=== PATIENT | female | born 1950 | race Caucasian/White ===

== ENCOUNTER 2021-09-28 07:14 | Emergency (ER) | payer MEDICARE, SELFPAY ==
[2021-09-28 07:15] VITALS: BP 159/120; PULSE 104; RESP 18; TEMP 35.9; O2SAT 94; BMI 17.1
[2021-09-28 07:17] VITALS: BP 159/120; PULSE 104; RESP 20; TEMP 35.9; O2SAT 95
--- NOTE | 2021-09-28 07:40 | EX.ED.DYSGE1 ---
HPI History of Present Illness Chief Complaint: General Illness Informant: patient Onset/Context/Timing Onset: Yesterday Context: Gradual Onset Timing: Continuous Quality: Fatigue, weakness Location: Generalized Worsened by: Nothing Relieved by: Nothing Narrative Narrative: Patient presents with decreased appetite and increasing fatigue that has been getting worse since yesterday. Patient states she feels weak all over. Patient states nothing makes it better and nothing makes it worse. Patient denies any fevers. Patient admits to chronic subjective chills. Patient denies any chest pain or shortness of breath. Patient does admit to a chronic cough. Patient states she has had some nausea, vomiting, and diarrhea recently. Patient denies any urinary complaints. [facility] Medical History Anemia Coronary atherosclerosis heart cath Heart disease IBS (irritable bowel syndrome) Osteoporosis Porphyrin metabolism disorder Thyroid disease Home Medications aspirin 81 mg tablet,delayed release 81 mg PO DAILY 11/10/16 [History Last Taken Unknown] atorvastatin 20 mg tablet 20 mg PO QHS 11/10/16 [History Last Taken Unknown] calcium carbonate 500 mg-vitamin D3 10 mcg (400 unit) chewable tablet (Calcium 500 + D) 1 ea PO DAILY 11/10/16 [History Last Taken 11/17/16 06:30 1 EACH] cholecalciferol (vitamin D3) 25 mcg (1,000 unit) tablet 1,000 unit PO DAILY 11/10/16 [History Last Taken Unknown] clopidogrel 75 mg tablet 75 mg PO QHS 11/10/16 [History Last Taken Unknown] ipratropium 20 mcg-albuterol 100 mcg/actuation mist for inhalation 1 puff inhalation PRN PRN Wheezing 11/10/16 [History Last Taken Unknown] meloxicam 15 mg tablet 15 mg PO DAILY 11/10/16 [History Last Taken Unknown] omeprazole 20 mg capsule,delayed release 20 mg PO QHS 11/10/16 [History Last Taken 11/17/16 06:30 20 MG] acetaminophen 500 mg tablet (Tylenol Extra Strength) 1,000 mg PO DAILY 12/02/16 [History Last Taken Unknown] alendronate 70 mg tablet 70 mg PO QWEEK 12/29/16 [History Last Taken Unknown] budesonide-formoterol HFA 160 mcg-4.5 mcg/actuation aerosol inhaler (Symbicort) 2 puff inhalation BID 06/22/17 [History Last Taken Unknown] ferrous sulfate 325 mg (65 mg iron) tablet (Iron (ferrous sulfate)) 65 mg PO QWEEK 09/28/17 [History Last Taken Unknown] Allergy/AdvReac Type Severity Reaction Status Date / Time alendronate sodium AdvReac Severe Unknown Verified 09/28/21 07:23 [From Fosamax] nickel AdvReac Intermediate Rash Verified 09/28/21 07:23 rofecoxib [From Vioxx] AdvReac Intermediate Unknown Verified 09/28/21 07:23 iron AdvReac Mild Other Verified 09/28/21 07:23 Family History Mother Diabetes Arthritis Hypertension Father Anemia Sister Breast cancer Surgical History History of section History of lumpectomy History of PTCA Social History Smoking Status: Current every day smoker tobacco type: cigarettes ROS ROS ED Constitutional Constitutional ED: Denies chills or fever(s) Eyes Eyes: Denies blurry vision or change in vision ENT ENT ED: Denies rhinorrhea or sore throat Cardiovascular Cardiovascular: Denies chest pain or palpitations Respiratory/Chest Respiratory/Chest: Reports cough; Denies dyspnea Gastrointestinal Gastrointestinal: Reports diarrhea, nausea and vomiting Genitourinary Genitourinary ED: Denies dysuria or hematuria Musculoskeletal Musculoskeletal: Reports back pain and neck pain Integumentary Denies abscess or rash Neurologic Neurologic: Reports weakness; Denies headache(s) Allergic/Immunologic Allergic/Immunologic ED: Denies mouth swelling or urticaria EXAM Physical Exam Const Vital Signs: 09/28/21 07:15 09/28/21 07:17 09/28/21 08:12 Temperature 96.6 F L 96.6 F L Temperature Source Temporal Temporal Pulse Rate 104 H 104 H 93 Respiratory Rate 18 20 H 18 Blood Pressure 159/120 H 159/120 H Blood Pressure Mean 133 133 Pulse Ox 94 95 Oxygen Delivery Method Room Air Room Air 09/28/21 09:07 Temperature 97.2 F L Temperature Source Temporal Pulse Rate 105 H Respiratory Rate 26 H Blood Pressure 92/72 Blood Pressure Mean 78 Pulse Ox 97 Oxygen Delivery Method Room Air Positive well nourished and well developed General Appearance ED: well developed and NAD HEENT Reports moist mucous membranes Neck supple and no JVD Resp normal respiratory effort Auscultation: rhonchi throughout Cardio regular rhythm and no murmurs Rate: tachycardic GI normal to inspection, nondistended, normoactive bowel sounds and non-tender Palpation: soft Extremity normal to inspection General Extremety ED: Negative for edema or tenderness General Extremity: Negative for edema Neuro oriented x3, CN's II-XII intact bilaterally and no sensory deficits noted Sensorium / Orientation: alert Motor Exam: strength 5/5 throughout Psych mental status grossly normal Skin no rashes or lesions noted MDM MDM MDM Narrative Medical decision making narrative: Patient was given IV fluids. Patient was given a DuoNeb aerosol. Patient was given a dose of Zofran. EKG was obtained. On my interpretation, it showed a normal sinus rhythm with a rate of 89 with occasional PACs. [place] interval, QRS interval, and QTc intervals were all normal. [place] was normal. There are no acute ST or T wave changes. CBC shows a mild leukocytosis of 13.4. Platelets were slightly elevated at 457. Comprehensive metabolic profile was essentially within normal limits. High-sensitivity troponin was normal at 13. COVID-19 rapid antigen was obtained and was negative. Influenza A and influenza B swabs were obtained and were negative. Lactate was normal at 2.0. Portable chest x-ray was obtained. There is 1 view. On my interpretation, there is hyperinflation and chronic changes. There is no acute infiltrate or acute cardiopulmonary process. Radiologist also interpreted the x-ray and agrees. Urinalysis was obtained. There is no evidence of urinary tract infection. Patient is feeling better on reevaluation. Patient wants to go home. Patient was able to ambulate with a walker. Patient states she has 2 walkers at home. Patient was advised to use her walkers. Patient was instructed to continue her omeprazole as prescribed. Patient requested a referral to a new primary care physician because she is unhappy with her current primary care physician. This was given. Patient was instructed to follow-up in 5 to 7 days. Patient was instructed return if worse in any way. Patient and family understood and were agreeable with the plan. All questions were answered. Lab Data Attestation: I reviewed the patient's lab results. Labs: Laboratory Results - last 24 hr 09/28/21 09/28/21 09/28/21 07:20 07:20 07:20 WBC 13.4 H RBC 3.48 L Hgb 12.6 Hct 38.1 MCV 109.5 H MCH 36.2 H MCHC 33.1 RDW Std Deviation 50.0 H RDW Coeff of Rosa 12.5 Plt Count 457 H MPV 9.4 Immature Gran % (Auto) 1.700 H Neut % (Auto) 73.9 H Lymph % (Auto) 16.8 L [place] % (Auto) 6.4 Eos % (Auto) 0.7 Baso % (Auto) 0.5 Absolute Neuts (auto) 9.9 H Absolute Lymphs (auto) 2.25 Nucleated RBC % 0 Sodium 141 Potassium 3.4 L Chloride 103 Carbon Dioxide 26.0 Anion Gap 12 BUN 26 H Creatinine 0.84 Estim Creat Clear Calc 43.81 Est GFR (MDRD) Af Amer 85 Est GFR (MDRD) Non-Af 70 BUN/Creatinine Ratio 30.8 H Glucose 127 H Lactic Acid 2.0 Calcium 7.2 L Total Bilirubin 0.30 AST 33 ALT 23 Alkaline Phosphatase 82 Troponin I High Sens 13 Total Protein 7.7 Albumin 2.7 L Globulin 5.0 H Albumin/Globulin Ratio 0.5 L Urine Color Urine Clarity Urine pH Ur Specific [place] Urine Protein Urine Glucose (UA) Urine Ketones Urine Occult Blood Urine Nitrite Urine Bilirubin Urine Urobilinogen Ur Leukocyte Esterase Urine RBC Urine WBC Ur Squamous Epith Cells Urine Bacteria Urine Mucus 09/28/21 09:05 WBC RBC Hgb Hct MCV MCH MCHC RDW Std Deviation RDW Coeff of Rosa Plt Count MPV Immature Gran % (Auto) Neut % (Auto) Lymph % (Auto) [place] % (Auto) Eos % (Auto) Baso % (Auto) Absolute Neuts (auto) Absolute Lymphs (auto) Nucleated RBC % Sodium Potassium Chloride Carbon Dioxide Anion Gap BUN Creatinine Estim Creat Clear Calc Est GFR (MDRD) Af Amer Est GFR (MDRD) Non-Af BUN/Creatinine Ratio Glucose Lactic Acid Calcium Total Bilirubin AST ALT Alkaline Phosphatase Troponin I High Sens Total Protein Albumin Globulin Albumin/Globulin Ratio Urine Color Yellow Urine Clarity Sl. Cloudy Urine pH 5.0 Ur Specific [place] 1.020 Urine Protein 15 H Urine Glucose (UA) Normal Urine Ketones 50 H Urine Occult Blood Negative Urine Nitrite Negative Urine Bilirubin Negative Urine Urobilinogen Normal Ur Leukocyte Esterase Negative Urine RBC 0 SEEN Urine WBC 0 SEEN Ur Squamous Epith Cells 0-5 SEEN Urine Bacteria 0 SEEN Urine Mucus 0 SEEN Radiography Chest X-Ray - ED: 1 View, Read by ED Physician, Read by Radiologist, No Acute Disease, Chronic Changes and No Infiltrates Diagnostic Testing: Clinical Impression(s) from Imaging Studies Chest X-Ray 09/28/21 07:43 IMPRESSION: * COPD Electronically Signed: Sam Rosen MD at 8:34 EDT Reading Location ID and State: [address] [place] [address] , Service support , EKG Initial EKG: Attestation: I personally reviewed and interpreted this EKG as follows: Interpretation: Sinus Rhythm (89 with occasional PACs) and No Acute Injury Pattern Prior: No Prior Discharge Plan Triage Chief Complaint: General Illness ED Provider: Steven Salas Dx/Rx/DC Orders Clinical Impression: General weakness Instructions: ED Weakness (Uncertain Cause) Prescriptions: No Action atorvastatin 20 MG tablet 20 mg PO QHS Label Comments: CHOLESTEROL meloxicam 15 MG tablet 15 mg PO DAILY Label Comments: ARTHRITIS clopidogrel 75 MG tablet 75 mg PO QHS Label Comments: WAS TOLD TO ASK ABOUT STOPPING,STENTS aspirin 81 MG tablet,delayed release (DR/EC) 81 mg PO DAILY Label Comments: WS TOLD TO ASK ABOUT STOPPING FOR SURGERY omeprazole 20 MG capsule 20 mg PO QHS Label Comments: REFLUX calcium carbonate-vitamin D3 [Calcium 500 + D] 1 EACH Tab.Chew 1 ea PO DAILY cholecalciferol (vitamin D3) 1,000 UNIT tablet 1,000 unit PO DAILY ipratropium-albuterol 1 PUFF inhaler 1 puff INHALATION PRN PRN (Reason: Wheezing) acetaminophen [Tylenol Extra Strength] 500 MG tablet 1,000 mg PO DAILY alendronate 70 MG tablet 70 mg PO QWEEK budesonide-formoterol [Symbicort] 1 INHALER inhaler 2 puff inhalation BID ferrous sulfate [Iron (ferrous sulfate)] 325 MG tablet 65 mg PO QWEEK Primary Care Provider: Rachelle Mccullough Referrals: Rachelle Mccullough MD [Primary Care Provider] - Tam Fuller DO [STAFF PHYSICIAN] - 3-5 Days Disposition Disposition: Home, Self Care
--- NOTE | 2021-09-28 07:43 | RAD_ITS ---
STUDY: X-RAY CHEST REASON FOR EXAM: Female, 71 years old. pt having decreased energy and intake. pt weak and shaky that started yesterday TECHNIQUE: Single AP portable view of the chest. COMPARISON: None. FINDINGS: No visualized consolidation. Chronic parenchymal scarring in the bilateral lung bases. There is hyperinflation of the lungs consistent with chronic obstructive lung disease (COPD). There is no demonstrated pleural abnormality. Normal size heart. Normal mediastinum and chalo. Normal visualized pulmonary arteries. There is atherosclerotic calcification of the aortic arch with tortuosity. Normal visualized thoracic spine. Normal visualized ribs, clavicles, and shoulders. There is no demonstrated abnormality of the visualized soft tissue structures of the upper abdomen. RAD/Chest 1 View (Portable) IMPRESSION: * COPD Electronically Signed: Sam Rosen MD at 8:34 EDT ,
--- NOTE | 2021-09-28 07:45 | EKG12_ITS ---
Test Reason : WEAKNESS Blood Pressure : / mmHG Vent. Rate : 089 BPM Atrial Rate : 089 BPM P-R Int : 118 ms QRS Dur : 072 ms QT Int : 380 ms P-R-T Axes : 063 080 040 degrees QTc Int : 462 ms Sinus rhythm with Premature supraventricular complexes Otherwise normal ECG Confirmed by SARAH SYLVESTER, JILL ([id number]), medical transcription editor NENITA JEAN ([id number]) on 09/30/2021 10:17:53 AM Referred By: HEATHER Confirmed By:JILL SMITH MD
[2021-09-28 07:54] LABS: Absolute Lymphocyte Count 2.25 X10^3/uL (0.83-4.51); Absolute Neutrophil Count 9.9 X10^3/uL (2.0-7.7); Basophil# 0.07 X10^3/uL; Basophil% 0.5 % (0-1); Eosinophils% 0.7 % (0-5); Hematocrit 38.1 % (37-47); Hemoglobin 12.6 g/dL (12.0-15.0); Lymphocyte # 2.25 X10^3/ul (0.83-4.51); Lymphocyte % 16.8 % (19-41); Mean Corp Hgb Conc 33.1 g/dL (32-36); Mean Corpuscular Hgb 36.2 pg (27.0-32.0); Mean Corpuscular Volume 109.5 fL (81-99); Mean Platelet Vol. 9.4 fl (6.2-12.0); Monocyte# 0.86 X10^3/uL; Monocyte% 6.4 % (0-10); NRBC Flagged by Analyzer 0 % (0-5); Neutrophil # 9.89 X10^3/uL (2.7-7.7); Neutrophil % 73.9 % (47-70); Platelet Count 457 K/mm3 (150-450); RBC Distribution Width CV 12.5 % (11.6-14.6); Red Blood Count 3.48 M/mm3 (4.2-5.4); White Blood Count 13.4 K/mm3 (4.4-11.0)
[2021-09-28] MEDS: 0.9% Normal Saline 1,000 ML 1000 ML IV (07:55)
[2021-09-28] MEDS: Ondansetron 4 MG/2 ML Vial IV (07:55)
[2021-09-28] MEDS: Ipratropium/Albuterol Sulfate 3 ML AMPUL.NEB INHALATION (08:11)
[2021-09-28 08:12] VITALS: PULSE 93; RESP 18
[2021-09-28 08:14] LABS: ALB/GLOB Ratio 0.5 RATIO (0.9-2.4); AST(SGOT) 33 U/L (15-37); Alanine Aminotransfer ALT/SGPT 23 U/L (13-56); Albumin, Serum 2.7 g/dL (3.2-5.0); Alkaline Phosphatase 82 U/L (45-117); Anion Gap 12 (5-15); BUN 26 mg/dL (7-18); BUN/Creat Ratio 30.8 RATIO (10-20); Calcium,Total 7.2 mg/dL (8.5-10.1); Chloride 103 mmol/L (98-107); Creatinine, Serum 0.84 mg/dL (0.55-1.02); EST Glomerular Filtration Rate 70 mL/min (>60); Est Glom Filt Rate - Afr Amer 85 mL/min (>60); Estimated Creatinine Clearance 43.81 ml/min; Glucose 127 mg/dL (74-106); Potassium 3.4 mmol/L (3.5-5.1); Protein, Total 7.7 g/dL (6.4-8.2); Sodium Level 141 mmol/L (136-145); Troponin-I HS 13 pg/mL (3.0-54.0)
[2021-09-28 09:07] VITALS: BP 92/72; PULSE 105; RESP 26; TEMP 36.2; O2SAT 97
[2021-09-28 09:11] LABS: Bacteria 0 SEEN /hpf (None Seen); Mucous, Urine 0 SEEN /hpf (<or=2+); Red Blood Cells-Urine 0 SEEN /hpf (0-5); White Blood Cells 0 SEEN /hpf (0-5)
[2021-09-28 09:14] LABS: Color, Urine Yellow (Yellow); Glucose, Dipstick Normal (Normal); Ketone-Dipstick 50 mg/dl (Negative); Leukocyte Esterase-Dipstick Negative /ul (Negative); Nitrite-Dipstick Negative (Negative); Occult Blood-Urine Negative /ul (Negative); Protein-Dipstick 15 mg/dl (Negative); Urine Bilirubin Dipstick Negative (Negative); Urine Clarity Sl. Cloudy (Clear); Urine Urobilinogen Normal (Normal)
[2021-09-28 09:25] LABS: Squamous Epithelial Cells - UA 0-5 SEEN /hpf (5-10)
[2021-09-28 11:47] VITALS: BP 128/73; PULSE 92; RESP 17; TEMP 36.2; O2SAT 96
[2021-09-28 11:51] LABS: Reflex Lactate? Y
== END 2021-09-28 11:48 | disposition home or self-care (01) ==
PROVIDERS: Emergency Provider Emergency Medicine; PCP Internal Medicine; Visit Provider Emergency Medicine
DX: R53.1 Weakness (principal); I25.10 Atherosclerotic heart disease of native coronary artery without angina pectoris; F17.210 Nicotine dependence, cigarettes, uncomplicated
CPT/HCPCS: 99285; 71045; 80053; 81001; 83605; 84484; 85025; 87428; 93005; 94640; J7030; P9612; A4216; J2405

== ENCOUNTER 2021-09-29 12:54 | Inpatient (IN) | payer MEDICARE, SELFPAY ==
[2021-09-29] VITALS (33 sets, daily range): BP systolic 69–124; BP diastolic 51–85; PULSE 97–108; RESP 20–40; TEMP 36.3–37.3; O2SAT 90–97; BMI 17.8; BMI 17.2; BMI 17.4
--- NOTE | 2021-09-29 13:00 | CT_ITS ---
STUDY: CT HEAD STROKE PROTOCOL W/O CONTRAST INJECTION REASON FOR EXAM: Female, 71 years old. Neuro deficit, acute, stroke suspected RADIATION DOSAGE (If Supplied By Facility): CTDIvol = ( ) mGy, DLP = ( ) mGycm TECHNIQUE: Transaxial CT imaging of the brain was performed without administration of intravenous contrast material. Individualized dose optimization techniques were used for this CT. COMPARISON: No relevant priors. FINDINGS: Normal soft tissue structures. Normal calvarium. No dense artery sign or focal sulcal effacement or parenchymal edema. There is mild cerebral atrophy with widening of the extra-axial spaces and ventricular dilatation. Normal white matter tracts of the cerebral hemispheres. There are small punctate calcifications of the basal ganglia which are seen in the aging brain as a normal variant. Normal brainstem. Normal cerebellum. There is no intracranial hemorrhage. There are no findings of an acute ischemic infarction. Normal visualized paranasal sinuses. ASPECT score: 10 CT/STROKE Brain/Head without Cont IMPRESSION: 1. Chronic ischemic and involutional changes of the brain. N.B. : The above Results were Read Back by Sam Rosen MD to Margy Polanco DO, and understanding confirmed on 09/29/2021 13:15:38 (ET). Electronically Signed: Sam Rosen MD at 13:16 EDT ,
--- NOTE | 2021-09-29 13:00 | EKG12_ITS ---
Test Reason : STROKE Blood Pressure : / mmHG Vent. Rate : 105 BPM Atrial Rate : 105 BPM P-R Int : 122 ms QRS Dur : 080 ms QT Int : 346 ms P-R-T Axes : 076 072 034 degrees QTc Int : 457 ms Sinus tachycardia with Premature atrial complexes Nonspecific ST abnormality Abnormal ECG Confirmed by SARAH SYLVESTER, JILL ([id number]), restaurant expeditor NENITA JEAN ([id number]) on 10/01/2021 11:31:09 AM Referred By: ALCIDES Confirmed By:JILL SMITH MD
--- NOTE | 2021-09-29 13:00 | CT_ITS ---
STUDY: CTA HEAD AND NECK WITH CONTRAST REASON FOR EXAM: Female, 71 years old. Neuro deficit, acute, stroke suspected RADIATION DOSAGE (If Supplied By Facility): CTDIvol = ( 9.52 ) mGy, DLP = ( 412.68 ) mGycm TECHNIQUE: CT angiography was performed with a multi-detector CT scanner. Data acquisition was obtained from the skull base through the vertex following intravenous administration of IV 100mL [id number]-[id number]. MIP images were reconstructed from the axial data set. Post-processing of the angiographic images was performed, with multiplanar reformation and 3D reconstruction. Individualized dose optimization techniques were used for this CT. COMPARISON: Head CT dated SEPTEMBER 29, 2021. FINDINGS: Normal bilateral petrous carotid arteries. There is calcified plaque formation of the right cavernous carotid artery, with a moderate stenosis (50-75%). There is calcified plaque formation of the left cavernous carotid artery, with a moderate stenosis (50-75%). Normal right A1 segments of the anterior cerebral artery. Normal left A1 segments of the anterior cerebral artery. Normal intact anterior communicating artery (ACOM). Normal bilateral A2 segments of the anterior cerebral arteries. Normal right M1 and M2 segments of the middle cerebral arteries, with a normal M1 bifurcation. Normal left M1 and M2 segments of the middle cerebral arteries, with a normal M1 bifurcation. Normal right posterior communicating artery (PCOM). Normal left posterior communicating artery (PCOM). Normal bilateral vertebral arteries. Normal basilar artery with a normal basilar bifurcation. The visualized bilateral superior cerebellar (SCA) arteries are normal. Normal bilateral P1, P2 and visualized P3 segments of the posterior cerebral arteries. There is no demonstrated aneurysm of the telida of [place]u. AORTIC ARCH: Normal visualized aortic arch. Normal origins of the brachiocephalic, left common carotid, and left subclavian arteries. RIGHT CAROTID ARTERIES: Normal right common carotid artery (CCA). There is mild atherosclerotic plaque formation with minimal narrowing of the right carotid bulb. There is mild atherosclerotic plaque formation of the origin of the right internal carotid artery with less than 50% cross sectional diameter stenosis. Normal visualized cervical portion of the right internal carotid artery. Normal origin of the right external carotid artery (ECA). LEFT CAROTID ARTERIES: There is mild to moderate atherosclerotic plaque formation of the common carotid artery, but without a hemodynamically significant stenosis. There is mild atherosclerotic plaque formation with minimal narrowing of the left carotid bulb. Normal origin of the left internal carotid (ICA) artery without a hemodynamically significant stenosis. Normal visualized cervical portion of the left internal carotid artery. Normal origin of the left external carotid artery (ECA). VERTEBRAL ARTERIES: The right V1 and V2 segments of the vertebral artery from the C3 level to the junction with the subclavian artery is markedly hypoplastic/stenotic which is usually a normal variant/developmental, but could also represent sequela from chronic atherosclerotic disease, particularly given calcified plaque at the junction of the right vertebral artery and subclavian artery as well as high-grade atherosclerotic stenosis of the proximal aspect of the right subclavian artery with atherosclerotic plaque and with vascular stents at the brachiocephalic junction and the pain origin of the right common carotid artery. Multiple collateral vessels are seen around the right vertebral artery indicating a long-standing chronic process. Normal left vertebral artery. Degenerative changes are present in the cervical spine. Significant cystic emphysematous changes are seen in the bilateral upper lobes of the lungs. CT/STROKE CTA Head AND Neck W/Con IMPRESSION: 1. Unremarkable telida of [place]u without a demonstrated aneurysm or hemodynamically significant stenosis. 2. Mild atherosclerotic plaque of the bilateral cervical carotid arteries, without an occlusion or aneurysm or hemodynamically significant stenosis. 3. The right V1 and V2 segments of the vertebral artery from the C3 level to the junction with the subclavian artery is markedly hypoplastic/stenotic which is usually a normal variant/developmental, but could also represent sequela from chronic atherosclerotic disease. N.B. : The above Results were Read Back by Sam Rosen MD to Margy Polanco DO, and understanding confirmed on 09/29/2021 13:41:22 (ET). Electronically Signed: Sam Rosen MD at 13:42 EDT ,
--- NOTE | 2021-09-29 13:00 | CM.ED ---
Social Work Responding to stroke alert. No family present. Patient alert and speaking with staff. Will continue to follow as needed. Anders Singh MSW, DAVID-S
--- NOTE | 2021-09-29 13:02 | ED.VIS.STROK ---
HPI History of Present Illness Chief Complaint: Neuro S/Sx Informant: patient Onset/Context/Timing Onset: Today Narrative Narrative: Patient is a 71-year-old female with history of coronary artery disease, hyperlipidemia and COPD presenting for slurred speech and right-sided weakness. Patient states at noon today all of a sudden she noticed that she was having a hard time moving her right side and her speech seemed different. She called 911. Patient lives with her granddaughter who is disabled. Her daughter spoke to her last at 3 PM yesterday and states that she felt okay. Patient was actually seen in the ER yesterday for generalized weakness. At that time she had a work-up including EKG, labs and chest x-ray.She did not have a head CT at that time. Patient denies any known history of stroke. She denies any recent falls or head injuries. She denies any vision changes. No other complaints at this time. [facility] Medical History (Updated 09/29/21 @ 16:[address] Tam Ruelas, DO) Anemia COPD (chronic obstructive pulmonary disease) Coronary atherosclerosis GERD (gastroesophageal reflux disease) heart cath Heart disease IBS (irritable bowel syndrome) Osteoporosis Porphyrin metabolism disorder Smoker Thyroid disease Home Medications aspirin 81 mg tablet,delayed release 81 mg PO DAILY heart health 11/10/16 [History Last Taken 09/28/21] atorvastatin 20 mg tablet 20 mg PO QHS cholesterol lowering 11/10/16 [History Last Taken 09/28/21] calcium carbonate 500 mg-vitamin D3 10 mcg (400 unit) chewable tablet (Calcium 500 + D) 1 ea PO DAILY supplement 11/10/16 [History Last Taken 09/28/21] cholecalciferol (vitamin D3) 25 mcg (1,000 unit) tablet 1,000 unit PO DAILY supplement 11/10/16 [History Last Taken 09/28/21] clopidogrel 75 mg tablet 75 mg PO QHS heart health 11/10/16 [History Last Taken 09/28/21] ipratropium 20 mcg-albuterol 100 mcg/actuation mist for inhalation 1 puff inhalation PRN PRN Wheezing 11/10/16 [History Last Taken Unknown] meloxicam 15 mg tablet 15 mg PO DAILY arthritis 11/10/16 [History Last Taken 09/28/21] omeprazole 20 mg capsule,delayed release 20 mg PO QHS acid reflux 11/10/16 [History Last Taken 09/28/21] acetaminophen 500 mg tablet (Tylenol Extra Strength) 1,000 mg PO DAILY pain 12/02/16 [History Last Taken Unknown] alendronate 70 mg tablet 70 mg PO QWEEK bone health 12/29/16 [History Last Taken Unknown] budesonide-formoterol HFA 160 mcg-4.5 mcg/actuation aerosol inhaler (Symbicort) 2 puff inhalation BID breathing 06/22/17 [History Last Taken 09/28/21] anastrozole 1 mg tablet 1 mg PO DAILY hormone therapy 09/29/21 [History Last Taken 09/28/21] fluticasone 250 mcg-salmeterol 50 mcg/dose blistr powdr for inhalation 1 ea inhalation PRN PRN breathing 09/29/21 [History Last Taken Unknown] Allergy/AdvReac Type Severity Reaction Status Date / Time alendronate sodium AdvReac Severe Unknown Verified 09/28/21 07:23 [From Fosamax] nickel AdvReac Intermediate Rash Verified 09/28/21 07:23 rofecoxib [From Vioxx] AdvReac Intermediate Unknown Verified 09/28/21 07:23 iron AdvReac Mild Other Verified 09/28/21 07:23 Family History Mother Diabetes Arthritis Hypertension Father Anemia Sister Breast cancer Surgical History (Updated 09/29/21 @ 14:52 by Dana Ma) History of section History of coronary artery stent placement History of lumpectomy History of PTCA Social History Smoking Status: Current every day smoker tobacco type: cigarettes ROS ROS ED Constitutional Constitutional ED: Denies chills or fever(s) Eyes Eyes: Denies blurry vision or change in vision ENT ENT ED: Denies sore throat Cardiovascular Cardiovascular: Denies chest pain or palpitations Respiratory/Chest Respiratory/Chest: Denies cough Gastrointestinal Gastrointestinal: Denies abdominal pain, nausea or vomiting Musculoskeletal Musculoskeletal: Denies arthralgias or back pain Integumentary Denies rash Neurologic Neurologic: Reports weakness and other Details: slurred speech ; Denies headache(s) or paresthesias Psychiatric Psychiatric: Denies anxiety or depression Hematologic/Lymphatic Hematologic/Lymphatic: Denies easy bleeding or easy bruising EXAM Physical Exam Const Vital Signs: 09/29/21 13:11 09/29/21 13:11 09/29/21 13:21 Temperature 98.0 F Temperature Source Temporal Pulse Rate 105 H 106 H Respiratory Rate 30 H 31 H Blood Pressure 72/58 L 69/56 L Blood Pressure Mean 62 60 Blood Pressure Source Blood Pressure Position Blood Pressure Location Pulse Ox 97 94 94 Oxygen Delivery Method Room Air Room Air Room Air 09/29/21 13:27 09/29/21 13:30 09/29/21 13:39 Temperature 98.0 F Temperature Source Temporal Pulse Rate 106 H Respiratory Rate 20 H Blood Pressure 79/62 L 79/62 L Blood Pressure Mean 67 Blood Pressure Source Blood Pressure Position Blood Pressure Location Pulse Ox 94 Oxygen Delivery Method Room Air 09/29/21 13:46 09/29/21 13:58 09/29/21 14:14 Temperature 97.4 F L 97.7 F L Temperature Source Temporal Temporal Pulse Rate 105 H 104 H 105 H Respiratory Rate 25 H 30 H 40 H Blood Pressure 85/67 L 79/59 L 96/79 Blood Pressure Mean 73 65 84 Blood Pressure Source Monitor Monitor Monitor Blood Pressure Position Semi-Fowlers Semi-Fowlers Semi-Fowlers Blood Pressure Location Right Arm Right Arm Right Arm Pulse Ox 94 93 94 Oxygen Delivery Method Room Air Room Air Room Air Positive well nourished and well developed General Appearance ED: well developed and NAD HEENT Reports moist mucous membranes Eyes PERRL and EOMs intact bilaterally Neck supple Chest Wall inspection of chest normal Resp normal respiratory effort Cardio no murmurs Rate: regular rate Rhythm: regular rhythm GI normal to inspection, nondistended, normoactive bowel sounds Extremity normal to inspection General Extremety ED: Negative for deformity or edema General Extremity: Negative for deformity or edema Neuro oriented x3, CN's II-XII intact bilaterally and no sensory deficits noted Neuro Narrative: Speech slightly slurred. Slight drift of the right upper extremity. Drift of bilateral lower extremities, touches the bed. Psych mental status grossly normal Skin no wounds STROKE Vital Signs/Narrative: Vital Signs Temp Pulse Resp BP Pulse Ox 09/29/21 14:14 97.7 F L 105 H 40 H 96/79 94 09/29/21 13:58 104 H 30 H 79/59 L 93 09/29/21 13:46 97.4 F L 105 H 25 H 85/67 L 94 09/29/21 13:39 79/62 L 09/29/21 13:30 98.0 F 09/29/21 13:27 106 H 20 H 79/62 L 94 09/29/21 13:21 106 H 31 H 69/56 L 94 09/29/21 13:11 98.0 F 105 H 30 H 72/58 L 94 09/29/21 13:11 97 NIHSS Initial: 1a Level of Consciousness: 0 1b LOC Questions (Score 2 if aphasic/stupor): 0 1c LOC Commands (Only score 1st attempt): 0 2 Best Gaze (If aphasic, use reflexive mvmts.): 0 3 Visual: 0 4 Facial Palsy: 0 5 Motor Arm Right (UN = amputation/fusion): 1 5 Motor Arm Left: 0 6 Motor Leg Right: 2 6 Motor Leg Left: 2 7 Limb ataxia (Only + if out of proportion): 0 8 Sensory (Aphasia/stupor=0 or 1, coma=2): 0 9 Best Language: 0 10 Dysarthria (mute, coma=2, intubated=UN): 1 11 Extinction and Inattention (only scored if +): 0 Total Score: 6 2nd Follow up: 1a Level of Consciousness: 0 1b LOC Questions (Score 2 if aphasic/stupor): 0 1c LOC Commands (Only score 1st attempt): 0 2 Best Gaze (If aphasic, use reflexive mvmts.): 0 3 Visual: 0 4 Facial Palsy: 0 5 Motor Arm Right (UN = amputation/fusion): 2 5 Motor Arm Left: 0 6 Motor Leg Right: 3 6 Motor Leg Left: 0 7 Limb ataxia (Only + if out of proportion): 0 8 Sensory (Aphasia/stupor=0 or 1, coma=2): 1 9 Best Language: 0 10 Dysarthria (mute, coma=2, intubated=UN): 1 11 Extinction and Inattention (only scored if +): 0 Total Score: 7 MDM MDM MDM Narrative Medical decision making narrative: Evaluate for acute onset of feeling she cannot move her right side. Last time her daughter spoke to her was 3 PM yesterday but patient feels certain that her symptoms started at noon today. This is within an hour upon arrival. Stroke alert is called and patient was evaluated by teleneurology. Patient has persistent slightly slurred speech as well as right-sided weakness. She also has some right-sided sensation dysfunction. Discussed with patient that the risk and benefits of tPA include increased risk of bleeding as well as intracranial bleeding that likely is fatal. She lives independently and actually cares for her disabled granddaughter and feels that the benefits do outweigh the risk. She denies any known history of bleeding disorders. While in the ER patient is mildly hypotensive. She is mentating well and is given IV fluid boluses. Patient has a mild leukocytosis of 15.5 which is mildly increased from yesterday. There is no clear source of infection. I do not think this is meningitis. Patient is given tPA. She is admitted to the ICU. Blood pressure will be addressed further in the ICU as well as looking for signs of infection. She is instantly found to have hypokalemia with a potassium of 3.0. This can be managed in the ICU as well. After receiving the tPA she does start to have bleeding in her mouth. I reevaluated her and it seems to be coming from left lower tooth. Packing was placed in the area. Patient does feel that she is having improvement of her right-sided symptoms in the ER. Lab Data Attestation: I reviewed the patient's lab results. Labs: Laboratory Results - last 24 hr 09/29/21 09/29/21 09/29/21 12:45 12:45 12:45 WBC 15.5 H RBC 3.17 L Hgb 11.7 L Hct 35.1 L MCV 110.7 H MCH 36.9 H MCHC 33.3 RDW Std Deviation 50.8 H RDW Coeff of Orsa 12.7 Plt Count 415 MPV 9.3 Immature Gran % (Auto) 1.300 H Neut % (Auto) 75.6 H Lymph % (Auto) 14.9 L [place] % (Auto) 6.6 Eos % (Auto) 1.0 Baso % (Auto) 0.6 Absolute Neuts (auto) 11.7 H Absolute Lymphs (auto) 2.30 Nucleated RBC % 0 PT 14.1 INR 1.1 APTT 33.0 Sodium 142 Potassium 3.0 L Chloride 108 H Carbon Dioxide 27.0 Anion Gap 7 BUN 24 H Creatinine 0.81 Estim Creat Clear Calc 45.86 Est GFR (MDRD) Af Amer 89 Est GFR (MDRD) Non-Af 74 BUN/Creatinine Ratio 29.5 H Glucose 110 H Calcium 7.2 L Troponin I High Sens 23 Radiography Diagnostic Testing: Clinical Impression(s) from Imaging Studies Brain CT 09/29/21 13:00 IMPRESSION: 1. Chronic ischemic and involutional changes of the brain. N.B. : The above Results were Read Back by Sam Rosen MD to Margy Polanco DO, and understanding confirmed on 09/29/2021 13:15:38 (ET). Electronically Signed: Sam Rosen MD at 13:16 EDT , ADDENDUM: 09/29/21 1323 IMPRESSION: 1. Chronic ischemic and involutional changes of the brain. N.B. : The above Results were Read Back by Sam Rosen MD to Margy Polanco DO, and understanding confirmed on 09/29/2021 13:15:38 (ET). Electronically Signed: Sam Rosen MD at 13:16 EDT , Head/Neck CTA 09/29/21 13:00 IMPRESSION: 1. Unremarkable [place] of [place] without a demonstrated aneurysm or hemodynamically significant stenosis. 2. Mild atherosclerotic plaque of the bilateral cervical carotid arteries, without an occlusion or aneurysm or hemodynamically significant stenosis. 3. The right V1 and V2 segments of the vertebral artery from the C3 level to the junction with the subclavian artery is markedly hypoplastic/stenotic which is usually a normal variant/developmental, but could also represent sequela from chronic atherosclerotic disease. N.B. : The above Results were Read Back by Sam Rosen MD to Margy Polanco DO, and understanding confirmed on 09/29/2021 13:41:22 (ET). Electronically Signed: Sam Rosen MD at 13:42 EDT , ADDENDUM: 09/29/21 1349 IMPRESSION: 1. Unremarkable [place] of [place] without a demonstrated aneurysm or hemodynamically significant stenosis. 2. Mild atherosclerotic plaque of the bilateral cervical carotid arteries, without an occlusion or aneurysm or hemodynamically significant stenosis. 3. The right V1 and V2 segments of the vertebral artery from the C3 level to the junction with the subclavian artery is markedly hypoplastic/stenotic which is usually a normal variant/developmental, but could also represent sequela from chronic atherosclerotic disease. N.B. : The above Results were Read Back by Sam Rosen MD to Margy Polanco DO, and understanding confirmed on 09/29/2021 13:41:22 (ET). Electronically Signed: Sam Rosen MD at 13:42 EDT , Rhythm Strip Rhythm Strip: Sinus Tach Rate: 105 Ectopy: None EKG Initial EKG: Attestation: I personally reviewed and interpreted this EKG as follows: Interpretation: Sinus Tachycardia Comments: Sinus tachycardia with PACs at a rate of 105 Normal axis Normal intervals Normal ST segments Critical Care Time Critical Care Time: Yes Critical care time (excluding procedures): 30-74 minutes (45), Discussing w/Patient &/or Family/Government Relations Director, Discussing w/Consultants, Arranging Admission or Transfer, Performing Direct Patient Care at Bedside and - (Acute stroke required tPA administration and emergent neurologic consult. Admission to ICU.) Discharge Plan Dx/Rx/DC Orders Clinical Impression: Received intravenous tissue plasminogen activator (tPA) in emergency department, Stroke determined by clinical assessment, Acute hypotension, Acute right-sided muscle weakness, Slurred speech, Hypokalemia Disposition Disposition: [facility] Discharge Date/Time: 09/29/21 14:50
--- NOTE | 2021-09-29 13:10 | NURSING ---
[id number] STROKE ALERT CALLED
[2021-09-29 13:12] LABS: Absolute Neutrophil Count 11.7 X10^3/uL (2.0-7.7); Basophil# 0.09 X10^3/uL; Basophil% 0.6 % (0-1); Eosinophil# 0.15 X10^3/uL; Hematocrit 35.1 % (37-47); Hemoglobin 11.7 g/dL (12.0-15.0); Lymphocyte % 14.9 % (19-41); Mean Corp Hgb Conc 33.3 g/dL (32-36); Mean Corpuscular Hgb 36.9 pg (27.0-32.0); Mean Corpuscular Volume 110.7 fL (81-99); Mean Platelet Vol. 9.3 fl (6.2-12.0); Monocyte# 1.02 X10^3/uL; Monocyte% 6.6 % (0-10); NRBC Flagged by Analyzer 0 % (0-5); Neutrophil # 11.72 X10^3/uL (2.7-7.7); Neutrophil % 75.6 % (47-70); Platelet Count 415 K/mm3 (150-450); RBC Distribution Width CV 12.7 % (11.6-14.6); RBC Distribution Width SD 50.8 fl (35.1-43.9); Red Blood Count 3.17 M/mm3 (4.2-5.4); White Blood Count 15.5 K/mm3 (4.4-11.0)
[2021-09-29 13:24] LABS: Anion Gap 7 (5-15); BUN 24 mg/dL (7-18); BUN/Creat Ratio 29.5 RATIO (10-20); Calcium,Total 7.2 mg/dL (8.5-10.1); Chloride 108 mmol/L (98-107); Creatinine, Serum 0.81 mg/dL (0.55-1.02); EST Glomerular Filtration Rate 74 mL/min (>60); Est Glom Filt Rate - Afr Amer 89 mL/min (>60); Estimated Creatinine Clearance 45.86 ml/min; Glucose 110 mg/dL (74-106); Sodium Level 142 mmol/L (136-145); Troponin-I HS 23 pg/mL (3.0-54.0)
[2021-09-29] MEDS: 0.9% Normal Saline 1,000 ML 100 ML IV (13:34)
--- NOTE | 2021-09-29 13:38 | CM.ED ---
Social Work This medical social worker following up with patient family in [facility]. Patient lives in a private home with special needs granddaughter. Patient granddaughter is 28 and able to take care of self. Patient has two daughter, Soo and Libertad. Patient does not have any advanced directives completer per Soo. Patient was independent in the home/community. Active support and listening provided. This medical social worker able to engage in conversation with Soo on stroke alert process and possible next steps. All questions answered. Will continue to follow as needed. Anders VENCES, CHUNG
[2021-09-29 13:42] LABS: International Normalized Ratio 1.1; Prothrombin Time (Protime)PT. 14.1 SECONDS (11.7-14.9)
--- NOTE | 2021-09-29 13:49 | NURSING ---
DR PAUL FOR DR CRUM
--- NOTE | 2021-09-29 14:10 | NURSING ---
ICU ACUTE STROKE TERELETSKY
[2021-09-29] MEDS: fentaNYL 100 MCG/2 ML Ampul 25 MCG IV (14:11)
[2021-09-29] MEDS: 0.9% Normal Saline 1,000 ML 999 ML IV (14:14)
--- NOTE | 2021-09-29 14:14 | NURSING ---
ICU 2
--- NOTE | 2021-09-29 14:25 | NURSING ---
dr lowe in to see pt, aware of bleeding gums
--- NOTE | 2021-09-29 14:40 | NURSING ---
pt to icu via bed at this time. dgtrs escorted by imelda patiño. [id number] report called to jarrod patiño icu
[2021-09-29] MEDS: KCL 20MEQ in 0.9% NS 20 MEQ/1,000 ML IV.SOLN. 125 MEQ IV ×2 (15:24→23:14)
[2021-09-29] MEDS: Acetaminophen 500 MG Tablet 1000 MG PO (16:15)
--- NOTE | 2021-09-29 16:27 | HP.PCM.HOS_ITS ---
HPI - General General Date of Admission: 09/29/21 Date of Service: 09/29/21 Chief Complaint: Slurred speech, right upper extremity weakness HPI Narrative MARICEL FLOWERS, is a 71 F who presents to the emergency room at [facility] with complaints of slurred speech and right upper extremity weakness which started approximately 12 noon today. She came to the emergency room and a stroke alert was called, she underwent a CT of the brain which showed no evidence of bleed, she had a teleneurology consultation and was given tPA. Due to hypotension in the emergency room, patient was given IV fluids. Labs obtained in the emergency room showed an elevated white blood cell count of 15.5, hemoglobin was 11.7, potassium was 3, BUN was 24, and glucose was 110. Patient was admitted to ICU as an acute ischemic stroke. [facility] Medical History (Updated 09/29/21 @ 16:[address] Tam Ruelas, ) Anemia COPD (chronic obstructive pulmonary disease) Coronary atherosclerosis GERD (gastroesophageal reflux disease) heart cath Heart disease IBS (irritable bowel syndrome) Osteoporosis Porphyrin metabolism disorder Smoker Thyroid disease Home Medications aspirin 81 mg tablet,delayed release 81 mg PO DAILY [facility] 11/10/16 [History Last Taken 09/28/21] atorvastatin 20 mg tablet 20 mg PO QHS cholesterol lowering 11/10/16 [History Last Taken 09/28/21] calcium carbonate 500 mg-vitamin D3 10 mcg (400 unit) chewable tablet (Calcium 500 + D) 1 ea PO DAILY supplement 11/10/16 [History Last Taken 09/28/21] cholecalciferol (vitamin D3) 25 mcg (1,000 unit) tablet 1,000 unit PO DAILY supplement 11/10/16 [History Last Taken 09/28/21] clopidogrel 75 mg tablet 75 mg PO [address] [facility] 11/10/16 [History Last Taken 09/28/21] ipratropium 20 mcg-albuterol 100 mcg/actuation mist for inhalation 1 puff inhalation PRN PRN Wheezing 11/10/16 [History Last Taken Unknown] meloxicam 15 mg tablet 15 mg PO DAILY arthritis 11/10/16 [History Last Taken 09/28/21] omeprazole 20 mg capsule,delayed release 20 mg PO QHS acid reflux 11/10/16 [History Last Taken 09/28/21] acetaminophen 500 mg tablet (Tylenol Extra Strength) 1,000 mg PO DAILY pain 12/02/16 [History Last Taken Unknown] alendronate 70 mg tablet 70 mg PO QWEEK bone health 12/29/16 [History Last Taken Unknown] budesonide-formoterol HFA 160 mcg-4.5 mcg/actuation aerosol inhaler (Symbicort) 2 puff inhalation BID breathing 06/22/17 [History Last Taken 09/28/21] anastrozole 1 mg tablet 1 mg PO DAILY hormone therapy 09/29/21 [History Last Taken 09/28/21] fluticasone 250 mcg-salmeterol 50 mcg/dose blistr powdr for inhalation 1 ea inhalation PRN PRN breathing 09/29/21 [History Last Taken Unknown] Allergy/AdvReac Type Severity Reaction Status Date / Time alendronate sodium AdvReac Severe Unknown Verified 09/28/21 07:23 [From Fosamax] nickel AdvReac Intermediate Rash Verified 09/28/21 07:23 rofecoxib [From Vioxx] AdvReac Intermediate Unknown Verified 09/28/21 07:23 iron AdvReac Mild Other Verified 09/28/21 07:23 Family History Mother Diabetes Arthritis Hypertension Father Anemia Sister Breast cancer Surgical History (Updated 09/29/21 @ 14:52 by Dana Ma) History of section History of coronary artery stent placement History of lumpectomy History of PTCA Social History Smoking Status: Current every day smoker tobacco type: cigarettes ROS Constitutional Constitutional: Denies anorexia, change in weight, chills, fatigue, fever(s), malaise, night sweats or weakness Eyes Eyes: Denies blurry vision, change in vision, discharge from eye(s) or eye pain Cardiovascular Cardiovascular: Denies chest pain, claudication, edema or palpitations Respiratory/Chest Respiratory/Chest: Denies cough, dyspnea, hemoptysis, productive cough, shortness of breath at rest or shortness of breath with exertion Gastrointestinal Gastrointestinal: Denies abdominal pain, constipation, diarrhea, hematemesis, hematochezia, melena, nausea or vomiting Genitourinary Genitourinary: Denies dysuria, hematuria, urinary frequency, urinary hesitancy, urinary incontinence or urinary urgency Musculoskeletal Musculoskeletal: Denies back pain, joint pain, joint stiffness, joint swelling, myalgias or neck pain Neurologic Neurologic: Reports abnormal speech and focal weakness; Denies abnormal gait, dizziness, headache(s), loss of vision, numbness, other visual disturbances, paresthesias, syncope or tingling Psychiatric Psychiatric: Denies anxiety, cognitive impairment, depression, irritability, mood swings or suicidal ideation Endocrine Endocrinology: Denies change in body appearance, cold intolerance, excessive sweating, heat intolerance, polydipsia or polyuria Hematologic/Lymphatic Hematologic/Lymphatic: Denies none, anemia, easy bleeding, easy bruising or lymphadenopathy Allergic/Immunologic Allergic/Immunologic: Denies rhinitis, urticaria, eczemia or asthma Vital Signs Vital Signs Vital Signs: 09/29/21 13:11 09/29/21 13:11 09/29/21 13:21 Temperature 98.0 F Temperature Source Temporal Pulse Rate 105 H 106 H Respiratory Rate 30 H 31 H Respiratory Effort Respiratory Depth Respiratory Pattern Blood Pressure 72/58 L 69/56 L Blood Pressure Mean 62 60 Blood Pressure Source Blood Pressure Position Blood Pressure Location Pulse Ox 97 94 94 Oxygen Delivery Method Room Air Room Air Room Air Oxygen Flow Rate (L/min) 09/29/21 13:27 09/29/21 13:30 09/29/21 13:39 Temperature 98.0 F Temperature Source Temporal Pulse Rate 106 H Respiratory Rate 20 H Respiratory Effort Respiratory Depth Respiratory Pattern Blood Pressure 79/62 L 79/62 L Blood Pressure Mean 67 Blood Pressure Source Blood Pressure Position Blood Pressure Location Pulse Ox 94 Oxygen Delivery Method Room Air Oxygen Flow Rate (L/min) 09/29/21 13:46 09/29/21 13:58 09/29/21 14:14 Temperature 97.4 F L 97.7 F L Temperature Source Temporal Temporal Pulse Rate 105 H 104 H 105 H Respiratory Rate 25 H 30 H 40 H Respiratory Effort Respiratory Depth Respiratory Pattern Blood Pressure 85/67 L 79/59 L 96/79 Blood Pressure Mean 73 65 84 Blood Pressure Source Monitor Monitor Monitor Blood Pressure Position Semi-Fowlers Semi-Fowlers Semi-Fowlers Blood Pressure Location Right Arm Right Arm Right Arm Pulse Ox 94 93 94 Oxygen Delivery Method Room Air Room Air Room Air Oxygen Flow Rate (L/min) 09/29/21 14:29 09/29/21 14:49 09/29/21 15:39 Temperature 98.1 F 97.7 F L Temperature Source Temporal Temporal Pulse Rate 105 H 105 H 106 H Respiratory Rate 20 H 40 H Respiratory Effort Respiratory Depth Respiratory Pattern Blood Pressure 107/85 H 96/79 Blood Pressure Mean 92 84 Blood Pressure Source Monitor Blood Pressure Position Semi-Fowlers Blood Pressure Location Right Arm Pulse Ox 96 94 Oxygen Delivery Method Nasal Cannula Room Air Oxygen Flow Rate (L/min) 2 09/29/21 14:45 09/29/21 15:15 09/29/21 15:30 Temperature 98.3 F 98.6 F 98.7 F Temperature Source Core Core Core Pulse Rate 104 H 107 H 107 H Respiratory Rate 26 H 26 H 31 H Respiratory Effort Respiratory Depth Respiratory Pattern Blood Pressure 98/71 84/68 L 91/77 Blood Pressure Mean 80 73 81 Blood Pressure Source Monitor Monitor Monitor Blood Pressure Position Semi-Fowlers Semi-Fowlers Semi-Fowlers Blood Pressure Location Left Arm Left Arm Left Arm Pulse Ox 94 91 91 Oxygen Delivery Method Room Air Room Air Room Air Oxygen Flow Rate (L/min) 09/29/21 15:00 09/29/21 15:45 09/29/21 15:57 Temperature 98.5 F 98.7 F Temperature Source Core Core Pulse Rate 106 H 107 H Respiratory Rate 31 H 26 H Respiratory Effort Normal Non-Labored Respiratory Depth Shallow Respiratory Pattern Tachypnea Blood Pressure 95/71 77/56 L Blood Pressure Mean 79 63 Blood Pressure Source Monitor Monitor Blood Pressure Position Semi-Fowlers Semi-Fowlers Blood Pressure Location Left Arm Left Arm Pulse Ox 96 92 Oxygen Delivery Method Room Air Room Air Room Air Oxygen Flow Rate (L/min) Weight Weight: 45.9 kg Body Mass Index (BMI) 17.4 Physical Exam Const alert, oriented x3, no apparent distress and healthy appearing General Appearance: cooperative, well kempt and well developed Orientation / Consciousness: awake, oriented to person, oriented to place and oriented to time HEENT normocephalic, head/scalp atraumatic, hearing grossly normal bilaterally and moist oral mucous membranes Eyes PERRL, EOMs intact bilaterally and conjunctivae normal Neck nuchal rigidity, supple, no JVD, thyroid normal and no carotid bruits General: trachea midline Resp normal respiratory effort, no retractions, no use of accessory muscles and clear to auscultation bilaterally Auscultation: Negative for rales, rhonchi or wheezes Cardio regular rate, regular rhythm, S1 normal heart sound, S2 normal heart sound, no murmurs, no rub and no gallops GI normal to inspection, nondistended, normoactive bowel sounds, soft to palpation, non-tender and non-distended Extremity normal to inspection and no clubbing, cyanosis or edema Skin no rashes or lesions noted General Skin Exam: no breakdown Neuro oriented x3, CN's II-XII intact bilaterally and no sensory deficits noted Neuro Narrative: Patient exhibits right upper extremity weakness as compared to her left upper extremity, right upper extremity strength is 2/4, left upper extremity strength is 4/4. Patient has slurred speech on examination, she responds appropriately to questions however. Sensorium / Orientation: awake, alert, oriented to person, oriented to place and oriented to time Speech: speech normal Psych affect normal Results Lab / Micro Data Result Diagrams: 09/29/21 12:45 09/29/21 12:45 Labs: Laboratory Results - last 24 hr 09/29/21 12:45: WBC 15.5 H, RBC 3.17 L, Hgb 11.7 L, Hct 35.1 L, MCV 110.7 H, MCH 36.9 H, MCHC 33.3, RDW Std Deviation 50.8 H, RDW Coeff of Rosa 12.7, Plt Count 415, MPV 9.3, Immature Gran % (Auto) 1.300 H, Neut % (Auto) 75.6 H, Lymph % (Auto) 14.9 L, [place] % (Auto) 6.6, Eos % (Auto) 1.0, Baso % (Auto) 0.6, Absolute Neuts (auto) 11.7 H, Absolute Lymphs (auto) 2.30, Nucleated RBC % 0 09/29/21 12:45: PT 14.1, INR 1.1, APTT 33.0 09/29/21 12:45: Sodium 142, Potassium 3.0 L, Chloride 108 H, Carbon Dioxide 27.0, Anion Gap 7, BUN 24 H, Creatinine 0.81, Estim Creat Clear Calc 45.86, Est GFR (MDRD) Af Amer 89, Est GFR (MDRD) Non-Af 74, BUN/Creatinine Ratio 29.5 H, Glucose 110 H, Calcium 7.2 L, Troponin I High Sens [address] 09/29/21 13:00 IMPRESSION: 1. Chronic ischemic and involutional changes of the brain. N.B. : The above Results were Read Back by Sam Rosen MD to Margy Polanco DO, and understanding confirmed on 09/29/2021 13:15:38 (ET). Electronically Signed: Sam Rosen MD at 13:16 EDT , ADDENDUM: 09/29/21 1323 IMPRESSION: 1. Chronic ischemic and involutional changes of the brain. N.B. : The above Results were Read Back by Sam Rosen MD to Margy Polanco DO, and understanding confirmed on 09/29/2021 13:15:38 (ET). Electronically Signed: Sam Rosen MD at 13:16 EDT , Head/Neck CTA 09/29/21 13:00 IMPRESSION: 1. Unremarkable [place] without a demonstrated aneurysm or hemodynamically significant stenosis. 2. Mild atherosclerotic plaque of the bilateral cervical carotid arteries, without an occlusion or aneurysm or hemodynamically significant stenosis. 3. The right V1 and V2 segments of the vertebral artery from the C3 level to the junction with the subclavian artery is markedly hypoplastic/stenotic which is usually a normal variant/developmental, but could also represent sequela from chronic atherosclerotic disease. N.B. : The above Results were Read Back by Sam Rosen MD to Margy Polanco DO, and understanding confirmed on 09/29/2021 13:41:22 (ET). Electronically Signed: Sam Rosen MD at 13:42 EDT , ADDENDUM: 09/29/21 1349 IMPRESSION: 1. Unremarkable [place] without a demonstrated aneurysm or hemodynamically significant stenosis. 2. Mild atherosclerotic plaque of the bilateral cervical carotid arteries, without an occlusion or aneurysm or hemodynamically significant stenosis. 3. The right V1 and V2 segments of the vertebral artery from the C3 level to the junction with the subclavian artery is markedly hypoplastic/stenotic which is usually a normal variant/developmental, but could also represent sequela from chronic atherosclerotic disease. N.B. : The above Results were Read Back by Sam Rosen MD to Margy Polanco DO, and understanding confirmed on 09/29/2021 13:41:22 (ET). Electronically Signed: Sam Rosen MD at 13:42 EDT , Assessment & Plan Assessment/Plan (1) Stroke determined by clinical assessment: PLAN: Plan 1. Acute ischemic stroke-again patient received tPA in the emergency room, she will be admitted to ICU for further care. MRI will be performed tomorrow, echocardiogram will be performed tomorrow. #2 coronary artery disease-patient will be off Plavix and aspirin for now #3 hypokalemia-patient will be given potassium supplementation, IV fluid with potassium will be administered #4 hyperkalemia-patient's atorvastatin will be increased to 80 mg daily #5 GERD-patient will be placed on Protonix #6 chronic obstructive pulmonary disease-patient still smokes at this time, DuoNeb aerosols will be ordered for the patient Charges/Coding Visit Charges Inpatient E&M: 36724 Init Hosp L3
[2021-09-29] MEDS: Potassium Chloride Oral Tablet 20 MEQ PO (17:22)
[2021-09-29] MEDS: 0.9% Saline Lock 10 ML Syringe IV (17:22)
[2021-09-29] MEDS: Ipratropium/Albuterol Sulfate 3 ML AMPUL.NEB INHALATION (18:43)
[2021-09-29] MEDS: Pantoprazole Sodium 20 MG Tablet PO (20:13)
[2021-09-29] MEDS: Atorvastatin Calcium 80 MG Tablet PO (20:13)
[2021-09-30] VITALS (31 sets, daily range): BP systolic 62–119; BP diastolic 49–84; PULSE 79–110; RESP 14–229; TEMP 36.7–37.4; O2SAT 88–98; BMI 17.4
[2021-09-30] MEDS: Acetaminophen 500 MG Tablet 1000 MG PO (00:28)
[2021-09-30] MEDS: Ipratropium/Albuterol Sulfate 3 ML AMPUL.NEB INHALATION ×4 (00:51→19:17)
--- NOTE | 2021-09-30 00:56 | CPS ---
patient was 88% on room air while resting. patient increased to 1 lpm. patients nurse aware.
[2021-09-30 04:06] LABS: Absolute Lymphocyte Count 2.18 X10^3/uL (0.83-4.51); Absolute Neutrophil Count 8.6 X10^3/uL (2.0-7.7); Basophil# 0.07 X10^3/uL; Basophil% 0.6 % (0-1); Eosinophil# 0.23 X10^3/uL; Eosinophils% 1.9 % (0-5); Hematocrit 28.2 % (37-47); Hemoglobin 9.5 g/dL (12.0-15.0); Lymphocyte # 2.18 X10^3/ul (0.83-4.51); Lymphocyte % 17.8 % (19-41); Mean Corp Hgb Conc 33.7 g/dL (32-36); Mean Corpuscular Hgb 37.1 pg (27.0-32.0); Mean Corpuscular Volume 110.2 fL (81-99); Mean Platelet Vol. 8.9 fl (6.2-12.0); Monocyte% 8.1 % (0-10); NRBC Flagged by Analyzer 0 % (0-5); Neutrophil # 8.58 X10^3/uL (2.7-7.7); Neutrophil % 69.8 % (47-70); Platelet Count 273 K/mm3 (150-450); RBC Distribution Width CV 12.6 % (11.6-14.6); RBC Distribution Width SD 50.2 fl (35.1-43.9); Red Blood Count 2.56 M/mm3 (4.2-5.4); White Blood Count 12.3 K/mm3 (4.4-11.0)
[2021-09-30 04:40] LABS: Anion Gap 6 (5-15); BUN 9 mg/dL (7-18); BUN/Creat Ratio 21.8 RATIO (10-20); Calcium,Total 5.9 mg/dL (8.5-10.1); Chloride 112 mmol/L (98-107); Cholesterol 99 mg/dL (200); Creatinine, Serum 0.41 mg/dL (0.55-1.02); EST Glomerular Filtration Rate 161 mL/min (>60); Est Glom Filt Rate - Afr Amer 195 mL/min (>60); Estimated Creatinine Clearance 37.39 ml/min; Glucose 91 mg/dL (74-106); High Density Lipoprotein 55 mg/dL; Potassium 3.5 mmol/L (3.5-5.1); Sodium Level 143 mmol/L (136-145); Triglycerides 93 mg/dL; Very Low Density Lipoprotein 19 mg/dL (5-40)
--- NOTE | 2021-09-30 06:19 | EX.PCM.CONCC ---
Assessment & Plan Assessment/Plan (1) Stroke determined by clinical assessment: (2) Hypotension: (3) Tobacco use disorder: PLAN: Plan RECOMMENDATIONS: 1. Attempt fluid challenge this morning prior to continuation of IV fluids 2. Continue post tPA protocol 3. No need for CT scan as MRI is scheduled for 1 PM 4. Check orthostatics if symptomatic when working with therapy 5. Possibly okay to leave the intensive care unit following MRI 6. Encourage smoking cessation. Possible outpatient PFT IMPRESSIONS: 1. Acute CVA status post tPA Patient with good response to tPA. NIH has gone from 7 down to 1. Patient's blood pressures have been marginal. Continue with post tPA protocol. Patient has an MRI scheduled at 1, so CT scan is likely not necessary. Continue with therapies. If patient becomes symptomatic with change in body position, orthostatic should be obtained prior to working with therapy. Clinical suspicion for A. fib as an etiology 2. Hypotension Unclear etiology. Patient does have a frail appearance and there is some concern for volume depletion. Patient has received IV fluids overnight and done okay. Nursing has reported a wet cough, so will give a 500 cc bolus. If blood pressure improves, continue IV fluids given patient on minimal nasal cannula. If no change in blood pressure, anticipate discontinuation of IV fluids. Could consider midodrine. Patient will be seen by dietitian. Patient has maintained a good urine output thus far. 3. Hypokalemia/history of breast cancer/hyperlipidemia/GERD/COPD/advanced age/CAD Complicates care, management, recovery and prognosis. Patient does not appear to be in exacerbation of COPD at this time. Bronchodilators are likely sufficient. Likely okay to reinitiate Plavix and aspirin once IVH has been ruled out. Patient has been placed on a high-dose statin. HPI Consult Data Date of Consult: 09/30/21 HPI Narrative Reason for Consultation: CVA status post tPA HPI Narrative: MARICEL FLOWERS is a 71 F, with past medical history listed below, who presents to [facility] on 09/29/2021 secondary to acute onset of slurred speech and right-sided weakness. Patient had been seen in the ER on the day previous for generalized weakness, but at noon on the day of presentation, patient started to have a significant difficulty with forming her words and right-sided weakness. Patient called 911 and was transported to the ER as a stroke team. Patient denied any history of stroke. Patient has not had any recent fall or head injuries. No surgeries have been reported. Patient was not reporting any vision changes. On arrival to the emergency department, patient was afebrile, tachycardic at 105 bpm, but hypotensive at 72/58. Patient was saturating well on room air. Patient's initial NIH was between 6 and 7. Stroke team was utilized and telestroke services recommended tPA. Laboratory work-up showed a white blood cell count of 15.5, hemoglobin of 11.7 and platelets of 415. Coagulation studies were within normal limits. Chemistry was significant for a potassium of 3 and a glucose of 110, but otherwise was within normal limits. CT of the head showed no acute findings and a CTA of the head and neck showed no large vessel occlusions. Patient was subsequently given tPA and transported to the intensive care unit for further monitoring. Since being in the intensive care unit, patient's blood pressures have remained marginal, but acceptable. Patient has been placed on IV fluids and tolerated this well. Patient's NIH has been documented as initially a 5 with right-sided weakness and slurred speech. However, patient is down to an NIH of 1 with some mild dysarthria. Patient subjectively feels much improved compared to previous. Patient did pass a bedside swallow evaluation and has been tolerating p.o. Patient denies any current chest pain, abdominal pain, nausea or vomiting. Patient is not having any bleeding complications such as epistaxis, hemoptysis, melena or hematochezia. Patient does have a history of breast cancer, but is not currently suffering from mucositis. Patient does report a significant weight loss associated with this diagnosis. Patient does have a history of smoking in the past and does carry a diagnosis of COPD on a combination inhaler at baseline. Patient does not require supplemental oxygen at baseline. Review of systems otherwise negative from a constitutional, HEENT, respiratory, cardiovascular, GI, genitourinary, musculoskeletal, skin, neurologic, psychiatric and hematologic system unless stated above. [facility] Medical History Anemia COPD (chronic obstructive pulmonary disease) Coronary atherosclerosis GERD (gastroesophageal reflux disease) heart cath Heart disease IBS (irritable bowel syndrome) Osteoporosis Porphyrin metabolism disorder Smoker Thyroid disease Home Medications aspirin 81 mg tablet,delayed release 81 mg PO DAILY [facility] 11/10/16 [History Last Taken 09/28/21] atorvastatin 20 mg tablet 20 mg PO QHS cholesterol lowering 11/10/16 [History Last Taken 09/28/21] calcium carbonate 500 mg-vitamin D3 10 mcg (400 unit) chewable tablet (Calcium 500 + D) 1 ea PO DAILY supplement 11/10/16 [History Last Taken 09/28/21] cholecalciferol (vitamin D3) 25 mcg (1,000 unit) tablet 1,000 unit PO DAILY supplement 11/10/16 [History Last Taken 09/28/21] clopidogrel 75 mg tablet 75 mg PO QHS heart health 11/10/16 [History Last Taken 09/28/21] ipratropium 20 mcg-albuterol 100 mcg/actuation mist for inhalation 1 puff inhalation PRN PRN Wheezing 11/10/16 [History Last Taken Unknown] meloxicam 15 mg tablet 15 mg PO DAILY arthritis 11/10/16 [History Last Taken 09/28/21] omeprazole 20 mg capsule,delayed release 20 mg PO QHS acid reflux 11/10/16 [History Last Taken 09/28/21] acetaminophen 500 mg tablet (Tylenol Extra Strength) 1,000 mg PO DAILY pain 12/02/16 [History Last Taken Unknown] alendronate 70 mg tablet 70 mg PO QWEEK bone health 12/29/16 [History Last Taken Unknown] budesonide-formoterol HFA 160 mcg-4.5 mcg/actuation aerosol inhaler (Symbicort) 2 puff inhalation BID breathing 06/22/17 [History Last Taken 09/28/21] anastrozole 1 mg tablet 1 mg PO DAILY hormone therapy 09/29/21 [History Last Taken 09/28/21] fluticasone 250 mcg-salmeterol 50 mcg/dose blistr powdr for inhalation 1 ea inhalation PRN PRN breathing 09/29/21 [History Last Taken Unknown] Allergy/AdvReac Type Severity Reaction Status Date / Time alendronate sodium AdvReac Severe Unknown Verified 09/28/21 07:23 [From Fosamax] nickel AdvReac Intermediate Rash Verified 09/28/21 07:23 rofecoxib [From Vioxx] AdvReac Intermediate Unknown Verified 09/28/21 07:23 iron AdvReac Mild Other Verified 09/28/21 07:23 Family History Mother Diabetes Arthritis Hypertension Father Anemia Sister Breast cancer Surgical History History of section History of coronary artery stent placement History of lumpectomy History of PTCA Social History Smoking Status: Current every day smoker tobacco type: cigarettes ROS ROS Narrative See HPI Physical Exam Const alert, oriented x3, no apparent distress and healthy appearing General Appearance: cooperative, well kempt, well developed and frail HEENT normocephalic, head/scalp atraumatic, hearing grossly normal bilaterally and moist oral mucous membranes Eyes PERRL, EOMs intact bilaterally and conjunctivae normal Neck supple, no JVD, thyroid normal and no carotid bruits General: trachea midline Resp normal respiratory effort, no retractions, no use of accessory muscles and clear to auscultation bilaterally Auscultation: diminished lung sounds; Negative for rales, rhonchi or wheezes Cardio regular rhythm, S1 normal heart sound, S2 normal heart sound, no murmurs, no rub and no gallops Rhythm: abnormal rhythm irregularly irregular GI normal to inspection, nondistended, normoactive bowel sounds, soft to palpation, non-tender and non-distended Extremity normal to inspection and no clubbing, cyanosis or edema Skin no rashes or lesions noted General Skin Exam: no breakdown Neuro oriented x3 and CN's II-XII intact bilaterally Neuro Narrative: Mild dysarthria noted. No drift on the right. Sensorium / Orientation: awake, alert, oriented to person, oriented to place and oriented to time Psych affect normal Medical Records Data Attestation: I reviewed the patient's medical records Lab / Micro Data Attestation: I reviewed the patient's lab results. Result Diagrams: 09/30/21 03:55 09/30/21 03:55 Labs: Laboratory Results - last 24 hr 09/29/21 12:45: WBC 15.5 H, RBC 3.17 L, Hgb 11.7 L, Hct 35.1 L, MCV 110.7 H, MCH 36.9 H, MCHC 33.3, RDW Std Deviation 50.8 H, RDW Coeff of Rosa 12.7, Plt Count 415, MPV 9.3, Immature Gran % (Auto) 1.300 H, Neut % (Auto) 75.6 H, Lymph % (Auto) 14.9 L, [place] % (Auto) 6.6, Eos % (Auto) 1.0, Baso % (Auto) 0.6, Absolute Neuts (auto) 11.7 H, Absolute Lymphs (auto) 2.30, Nucleated RBC % 0 09/29/21 12:45: PT 14.1, INR 1.1, APTT 33.0 09/29/21 12:45: Sodium 142, Potassium 3.0 L, Chloride 108 H, Carbon Dioxide 27.0, Anion Gap 7, BUN 24 H, Creatinine 0.81, Estim Creat Clear Calc 45.86, Est GFR (MDRD) Af Amer 89, Est GFR (MDRD) Non-Af 74, BUN/Creatinine Ratio 29.5 H, Glucose 110 H, Calcium 7.2 L, Troponin I High Sens 23 09/30/21 03:55: WBC 12.3 H, RBC 2.56 L, Hgb 9.5 L, Hct 28.2 L, MCV 110.2 H, MCH 37.1 H, MCHC 33.7, RDW Std Deviation 50.2 H, RDW Coeff of Rosa 12.6, Plt Count 273, MPV 8.9, Immature Gran % (Auto) 1.800 H, Neut % (Auto) 69.8, Lymph % (Auto) 17.8 L, [place] % (Auto) 8.1, Eos % (Auto) 1.9, Baso % (Auto) 0.6, Absolute Neuts (auto) 8.6 H, Absolute Lymphs (auto) 2.18, Nucleated RBC % 0 09/30/21 03:55: Sodium 143, Potassium 3.5, Chloride 112 H, Carbon Dioxide 25.0, Anion Gap 6, BUN 9, Creatinine 0.41 L, Estim Creat Clear Calc 37.39, Est GFR (MDRD) Af Amer 195, Est GFR (MDRD) Non-Af 161, BUN/Creatinine Ratio 21.8 H, Glucose 91, Calcium 5.9 L*, Triglycerides 93, Cholesterol 99, LDL Cholesterol 25, VLDL Cholesterol 19, HDL Cholesterol 55 Rhythm Strip Rhythm Strip: Sinus Tach Rate: 105 Ectopy: None Radiology Impression Brain CT 09/29/21 13:00 IMPRESSION: 1. Chronic ischemic and involutional changes of the brain. N.B. : The above Results were Read Back by Sam Rosen MD to Margy Polanco DO, and understanding confirmed on 09/29/2021 13:15:38 (ET). Electronically Signed: Sam Rosen MD at 13:16 EDT , ADDENDUM: 09/29/21 1323 IMPRESSION: 1. Chronic ischemic and involutional changes of the brain. N.B. : The above Results were Read Back by Sam Rosen MD to Margy Polanco DO, and understanding confirmed on 09/29/2021 13:15:38 (ET). Electronically Signed: Sam Rosen MD at 13:16 EDT , Head/Neck CTA 09/29/21 13:00 IMPRESSION: 1. Unremarkable lumbee of Siu without a demonstrated aneurysm or hemodynamically significant stenosis. 2. Mild atherosclerotic plaque of the bilateral cervical carotid arteries, without an occlusion or aneurysm or hemodynamically significant stenosis. 3. The right V1 and V2 segments of the vertebral artery from the C3 level to the junction with the subclavian artery is markedly hypoplastic/stenotic which is usually a normal variant/developmental, but could also represent sequela from chronic atherosclerotic disease. N.B. : The above Results were Read Back by Sam Rosen MD to Margy Polanco DO, and understanding confirmed on 09/29/2021 13:41:22 (ET). Electronically Signed: Sam Rosen MD at 13:42 EDT , ADDENDUM: 09/29/21 1349 IMPRESSION: 1. Unremarkable lumbee of Siu without a demonstrated aneurysm or hemodynamically significant stenosis. 2. Mild atherosclerotic plaque of the bilateral cervical carotid arteries, without an occlusion or aneurysm or hemodynamically significant stenosis. 3. The right V1 and V2 segments of the vertebral artery from the C3 level to the junction with the subclavian artery is markedly hypoplastic/stenotic which is usually a normal variant/developmental, but could also represent sequela from chronic atherosclerotic disease. N.B. : The above Results were Read Back by Sam Rosen MD to Margy Polanco DO, and understanding confirmed on 09/29/2021 13:41:22 (ET). Electronically Signed: Sam Rosen MD at 13:42 EDT , Charges/Coding Visit Charges Inpatient E&M: 83841 Init Hosp L3
[2021-09-30] MEDS: KCL 20MEQ in 0.9% NS 20 MEQ/1,000 ML IV.SOLN. 125 MEQ IV ×2 (06:40→21:24)
[2021-09-30] MEDS: Ondansetron 4 MG/2 ML Vial IV (06:44)
[2021-09-30] MEDS: 0.9% Saline Lock 10 ML Syringe IV ×2 (06:44→12:02)
--- NOTE | 2021-09-30 06:56 | EKG12_ITS ---
Test Reason : Blood Pressure : / mmHG Vent. Rate : 081 BPM Atrial Rate : 081 BPM P-R Int : 118 ms QRS Dur : 076 ms QT Int : 390 ms P-R-T Axes : 083 079 074 degrees QTc Int : 453 ms Normal sinus rhythm Nonspecific ST abnormality Abnormal ECG Confirmed by SARAH SYLVESTER, JILL ([id number]), make up editor NENITA JEAN ([id number]) on 10/04/2021 8:37:05 AM Referred By: ADDISON ALANIZ Confirmed By:JILL SMITH MD
[2021-09-30 08:01] LABS: Magnesium < 0.3 mg/dL (1.6-2.6); Phosphorus 2.2 mg/dL (2.5-4.9)
[2021-09-30 08:57] LABS: Magnesium < 0.3 mg/dL (1.6-2.6)
[2021-09-30] MEDS: Magnesium Sulfate 4gm/100mL 4 GM/100 ML IV.SOLN. IV (09:49)
[2021-09-30] MEDS: Anastrozole 1 MG TABLET PO (10:21)
--- NOTE | 2021-09-30 11:41 | PN.HOSP_ITS ---
Subjective Subjective Patient was seen and examined today, she still has some slurring of her speech but it is very slight. Patient's magnesium was low-below 0.3 today. Patient is getting magnesium supplementation today, critical care is seeing the patient in consultation today. Patient is due for an MRI of the brain this afternoon Objective Data Objective Data Vital Signs: Vital Signs Temp Pulse Resp BP Pulse Ox 98.9 F 87 18 101/65 93 09/30/21 11:00 09/30/21 11:00 09/30/21 11:00 09/30/21 11:00 09/30/21 11:00 Oxygen Flow Rate (L/min) 1 Oxygen Delivery Method Room Air Weight: 46.4 kg Body Mass Index (BMI) 17.4 Intake & Output: Intake and Output for Last 24 Hours 09/28/21 09/29/21 09/30/21 23:59 23:59 23:59 Intake Total 3456.07 / 3456.07 1729.17 / 1729.17 Output Total 550 / 800 2300 / 2300 Balance 2906.07 / 2656.07 -570.83 / -570.83 Lab / Micro Data Result Diagrams: 09/30/21 03:55 09/30/21 03:55 Labs: Laboratory Results - last 24 hr 09/29/21 12:45: WBC 15.5 H, RBC 3.17 L, Hgb 11.7 L, Hct 35.1 L, MCV 110.7 H, MCH 36.9 H, MCHC 33.3, RDW Std Deviation 50.8 H, RDW Coeff of Rosa 12.7, Plt Count 415, MPV 9.3, Immature Gran % (Auto) 1.300 H, Neut % (Auto) 75.6 H, Lymph % (Auto) 14.9 L, [place] % (Auto) 6.6, Eos % (Auto) 1.0, Baso % (Auto) 0.6, Absolute Neuts (auto) 11.7 H, Absolute Lymphs (auto) 2.30, Nucleated RBC % 0 09/29/21 12:45: PT 14.1, INR 1.1, APTT 33.0 09/29/21 12:45: Sodium 142, Potassium 3.0 L, Chloride 108 H, Carbon Dioxide 27.0, Anion Gap 7, BUN 24 H, Creatinine 0.81, Estim Creat Clear Calc 45.86, Est GFR (MDRD) Af Amer 89, Est GFR (MDRD) Non-Af 74, BUN/Creatinine Ratio 29.5 H, Glucose 110 H, Calcium 7.2 L, Troponin I High Sens 23 09/30/21 03:55: WBC 12.3 H, RBC 2.56 L, Hgb 9.5 L, Hct 28.2 L, MCV 110.2 H, MCH 37.1 H, MCHC 33.7, RDW Std Deviation 50.2 H, RDW Coeff of Rosa 12.6, Plt Count 273, MPV 8.9, Immature Gran % (Auto) 1.800 H, Neut % (Auto) 69.8, Lymph % (Auto) 17.8 L, [place] % (Auto) 8.1, Eos % (Auto) 1.9, Baso % (Auto) 0.6, Absolute Neuts (auto) 8.6 H, Absolute Lymphs (auto) 2.18, Nucleated RBC % 0 09/30/21 03:55: Sodium 143, Potassium 3.5, Chloride 112 H, Carbon Dioxide 25.0, Anion Gap 6, BUN 9, Creatinine 0.41 L, Estim Creat Clear Calc 37.39, Est GFR (MDRD) Af Amer 195, Est GFR (MDRD) Non-Af 161, BUN/Creatinine Ratio 21.8 H, Glucose 91, Calcium 5.9 L*, Triglycerides 93, Cholesterol 99, LDL Cholesterol 25, VLDL Cholesterol 19, HDL Cholesterol 55 09/30/21 03:55: Phosphorus 2.2 L, Magnesium < 0.3 L* 09/30/21 08:15: Magnesium < 0.3 L* Radiography Diagnostic Testing: Radiology Impression Brain CT 09/29/21 13:00 IMPRESSION: 1. Chronic ischemic and involutional changes of the brain. N.B. : The above Results were Read Back by Sam Rosen MD to Margy Polanco DO, and understanding confirmed on 09/29/2021 13:15:38 (ET). Electronically Signed: Sam Rosen MD at 13:16 EDT Reading Location ID and State: [facility] / [place] , Service support , ADDENDUM: 09/29/21 1323 IMPRESSION: 1. Chronic ischemic and involutional changes of the brain. N.B. : The above Results were Read Back by Sam Rosen MD to Margy Polanco DO, and understanding confirmed on 09/29/2021 13:15:38 (ET). Electronically Signed: Sam Rosen MD at 13:16 EDT Reading Location ID and State: [facility] / [place] , Service support , Head/Neck CTA 09/29/21 13:00 IMPRESSION: 1. Unremarkable [place]amish of Siu without a demonstrated aneurysm or hemodynamically significant stenosis. 2. Mild atherosclerotic plaque of the bilateral cervical carotid arteries, without an occlusion or aneurysm or hemodynamically significant stenosis. 3. The right V1 and V2 segments of the vertebral artery from the C3 level to the junction with the subclavian artery is markedly hypoplastic/stenotic which is usually a normal variant/developmental, but could also represent sequela from chronic atherosclerotic disease. N.B. : The above Results were Read Back by Sam Rosen MD to Margy Polanco DO, and understanding confirmed on 09/29/2021 13:41:22 (ET). Electronically Signed: Sam Rosen MD at 13:42 EDT , ADDENDUM: 09/29/21 1349 IMPRESSION: 1. Unremarkable stillaguamish of Siu without a demonstrated aneurysm or hemodynamically significant stenosis. 2. Mild atherosclerotic plaque of the bilateral cervical carotid arteries, without an occlusion or aneurysm or hemodynamically significant stenosis. 3. The right V1 and V2 segments of the vertebral artery from the C3 level to the junction with the subclavian artery is markedly hypoplastic/stenotic which is usually a normal variant/developmental, but could also represent sequela from chronic atherosclerotic disease. N.B. : The above Results were Read Back by Sam Rosen MD to Margy Polanco DO, and understanding confirmed on 09/29/2021 13:41:22 (ET). Electronically Signed: Sam Rosen MD at 13:42 EDT Reading Location ID and State: [facility] / [place] , Service support , Rhythm Strip Rhythm Strip: Sinus Tach Rate: 105 Ectopy: None Physical Exam Const alert, oriented x3 and no apparent distress Constitutional Narrative: Patient appears older than her stated age HEENT head/scalp atraumatic and moist oral mucous membranes Eyes EOMs intact bilaterally and conjunctivae normal Neck supple and no JVD Resp no retractions and no use of accessory muscles Cardio regular rate, regular rhythm, S1 normal heart sound, S2 normal heart sound and no murmurs GI normal to inspection, nondistended, normoactive bowel sounds, soft to palpation and non-tender Extremity normal to inspection and no clubbing, cyanosis or edema Neuro oriented x3, CN's II-XII intact bilaterally, moves all extremities and no focal motor deficits Neuro Narrative: Patient has some slurred speech today-this is greatly improved from yesterday's speech pattern Psych affect normal Assessment & Plan Assessment/Plan (1) Stroke determined by clinical assessment: PLAN: Plan 1. Acute ischemic stroke-exact location unknown at this time, patient will have an MRI of the brain performed this afternoon, patient will go back on Plavix and aspirin, she will be seen by teleneurology after her MRI of the brain has resulted. #2 hypomagnesemia-etiology unclear, patient will have magnesium replacement given today, labs will be rechecked #3 coronary artery disease-patient will resume her Plavix and aspirin today #4 hyperlipidemia-patient is on Lipitor #5 chronic obstructive pulmonary disease-patient will remain on DuoNeb aerosols #6 hypophosphatemia-critical care has ordered phosphate replacement #7 hypokalemia-resolved at this time #8 hypotension-patient's blood pressure is improved at the time of this dicta tion #9 anemia-etiology unclear, I will order iron studies on the patient, she has a past history of iron deficiency anemia Charges/Coding Visit Charges Inpatient E&M: 22722 Subs Hosp L2
[2021-09-30] MEDS: Morphine 4 MG/ML Syringe IV (11:59)
--- NOTE | 2021-09-30 12:20 | MRI_ITS ---
STUDY: MRI BRAIN WITHOUT CONTRAST REASON FOR EXAM: Female, 71 years old. CVA TECHNIQUE: Standardized multiplanar fat and water weighted pulse sequences were obtained. COMPARISON: CT 09/29/2021 FINDINGS: There is mild cerebral atrophy with widening of the extra-axial spaces and ventricular dilatation. There are a limited number of small white matter hyperintensities, distributed throughout the deep white matter tracts of the cerebral hemispheres, consistent with mild chronic white matter ischemic changes. There is no evidence for recent intracranial ischemia or other cause of cytotoxic edema on diffusion weighted imaging (DWI). Normal T2* images of the brain without demonstrated susceptibility artifact. There is no demonstrated hemosiderin stain. Normal bilateral basal ganglia. Normal thalami. There is no extra-axial fluid accumulation. Normal flow voids within the major intracranial circulation suggesting patency by spin echo criteria. Normal sella turcica, pituitary gland, infundibular stalk, optic chiasm and hypothalamus. Normal tectal plate and pineal gland. Normal midbrain, craig and medulla. Normal cerebellum. Normal basal cisterns. Normal bilateral temporal bones. Normal bilateral internal auditory canals. No demonstrated orbital abnormality, within the constraints of a routine brain study. Normal visualized paranasal sinuses. Normal calvarium and skull base. Normal visualized soft tissue structures. Normal visualized upper cervical spine. MRI/Brain without Contrast IMPRESSION: Involutional changes of the brain, as described above. No acute infarct. Electronically Signed: Yfn Duvall MD at 14:08 EDT ,
--- NOTE | 2021-09-30 13:20 | CASEMGMT ---
RN CM Face to Face with patient for initial transition planning/care coordination assessment. RN CM introduced self and role at [facility]. Patient lying in bed, alert and oriented. Patient willing to participate in assessment and is able to answer all questions appropriately. Care providers, pharmacy, and demographics verified. Patient wishes to discharge home. Will monitor patient's progress with therapy for possible HHC vs SNF or RU. Patient states she has no further needs or concerns at this time. CM to follow for discharge planning needs that may arise. PCP: [facility] Specialists: surgeon Brianna Gamboa Pharmacy: [facility] retail at discharge. Insurance: [employer] Prescription Benefit: yes Living Will/HPOA: none LNOK: daughters Living Arrangements: Patient lives with 28 yo handicap granddaughter in a 2 story home. Prior to hospitalization patient was independent and able to ambulate stairs. Transportation: self, daughter DME/HHC: Patient states she has shower chair, BSC, cane, walker, nebulizer at home. No previous HHC or SNF. Disposition Plan: HHC vs SNF pending progress with therapy. Bronwyn SCOTT, RN, CM
[2021-09-30 14:04] LABS: AST(SGOT) 32 U/L (15-37); Alanine Aminotransfer ALT/SGPT 18 U/L (13-56); Albumin, Serum 2.1 g/dL (3.2-5.0); Alkaline Phosphatase 58 U/L (45-117); Bilirubin, Direct 0.08 mg/dL (0.00-0.30); Globulin 3.8 g/dL (2.2-4.2); Protein, Total 5.9 g/dL (6.4-8.2)
[2021-09-30 14:08] LABS: Iron 64 ug/dL (50-170); Iron Binding Capacity,Total 140 ug/dL (250-450); PERCENT IRON SATURATION 45.7 % (15.0-55.0)
--- NOTE | 2021-09-30 14:38 | TELEMED_ITS ---
SOC Telemed has confirmed receipt of a request for visit. This document confirms receipt of the order initiating the consult. To find the results of the consultation, please view the patient's reports for the scanned Telemed Consult.
--- NOTE | 2021-09-30 15:14 | CASEMGMT ---
Social Work Pt admitted with stroke. SW met with pt and completed PHQ9 depression screen. Pt with score of 2/27 indicating mild depression and no further needs at this time. Pt feels she can return home at this time. She is primary caregiver for her granddgt who has some developmental disabilities and hse is looking forward to returning home to care for her. Per pt, Pt's dgt is currently with granddgt and will assist pt as needed upon return home. MARINA Quintanilla
[2021-09-30] MEDS: Clopidogrel Bisulfate 75 MG Tablet PO (15:34)
[2021-09-30] MEDS: Aspirin E.C. 81 MG Tablet PO (15:34)
[2021-09-30 15:52] LABS: Magnesium 2.2 mg/dL (1.6-2.6)
--- NOTE | 2021-09-30 15:58 | ECHOD_ITS ---
Reason For Study: TIA/CVA Procedure This was a 2D Doppler, Color Flow transthoracic echocardiogram. Bubble study performed. Exam performed portable in patient room. Left Ventricle Normal left ventricle. The estimated ejection fraction is 55-60 %. Right Ventricle Normal right ventricle. Normal systolic function. Atria Normal left atrium. Normal right atrium. Intact atrial septum. Mitral Valve The mitral valve is structurally normal. No prolapse or stenosis seen. Mild (1+) mitral valve insufficiency. Tricuspid Valve Normal tricuspid valve. Mild to moderate (1-2+) tricuspid valve insufficiency. Aortic Valve Normal aortic valve. No aortic valve insufficiency. Pulmonic Valve The pulmonic valve is not well visualized. Great Vessels Normal aortic root. Pericardium/Pleural No pericardial effusion. Medication Performed a rapid injection of agitated mix of 9 cc saline and 1cc air to assess for atrial septal defect. MMode/2D Measurements & Calculations LVIDd: 3.9 cm IVSd: 0.98 cm Ao root diam: 2.5 cm LVIDs: 2.7 cm LVPWd: 1.0 cm LA dimension: 3.2 cm RVDd: 3.4 cm FS: 30.6 % LAV(MOD-bp): 45.3 ml LA A4 area: 16.6 cm2 RA A4 area: 14.7 cm2 LAV(MOD-bp) Indexed: 30.8 ml/m2 LAV(MOD-sp2): 40.1 ml LAV(MOD-sp4): 46.5 ml Time Measurements MV dec time: 0.14 sec Doppler Measurements & Calculations MV E max gui: 95.4 cm/sec Lat Peak E' Gui: 7.6 cm/sec Med Peak E' Gui: 8.1 cm/sec MV A max gui: 135.9 cm/sec E/E' lat: 12.6 E/E' med: 11.8 MV E/A: 0.70 MV V2 max: 139.6 cm/sec MV P1/2t max gui: 116.5 cm/sec Ao V2 max: 107.8 cm/sec MV max P.8 mmHg MV P1/2t: 64.6 msec Ao max P.7 mmHg MV V2 mean: 83.4 cm/sec MV dec slope: 528.3 cm/sec2 MV mean P.2 mmHg MV V2 VTI: 23.5 cm MVA(P1/2t): 3.4 cm2 LV V1 max: 83.6 cm/sec MR max gui: 548.0 cm/sec PA V2 max: 95.3 cm/sec LV V1 max P.8 mmHg MR max P.1 mmHg MR mean gui: 440.5 cm/sec MR mean P.1 mmHg MR VTI: 205.1 cm TR max gui: 325.9 cm/sec TR max P.5 mmHg ECHO/Echo Complete Interpretation Summary The estimated ejection fraction is 55-60 %. Normal LV Systolic function Mild MR Mild -Moderate TR Pulmonary artery systolic pressure is 45mmhg No significant changes from previous echo of 11/2016 Ordering Physician: Tam Ruelas Referring Physician: CLARA PHILLIPS Performed By: Zoltan Manrique RCS
[2021-09-30] MEDS: 0.9% Normal Saline 1,000 ML 500 ML IV (18:43)
[2021-09-30] MEDS: Pantoprazole Sodium 20 MG Tablet PO (21:24)
[2021-09-30] MEDS: Atorvastatin Calcium 80 MG Tablet PO (21:24)
[2021-10-01] VITALS (19 sets, daily range): BP systolic 70–145; BP diastolic 40–103; PULSE 87–116; RESP 16–24; TEMP 36.6–37.2; O2SAT 85–96; BMI 17.4
[2021-10-01] MEDS: Acetaminophen 500 MG Tablet 1000 MG PO (03:41)
[2021-10-01] MEDS: KCL 20MEQ in 0.9% NS 20 MEQ/1,000 ML IV.SOLN. 125 MEQ IV ×2 (04:32→13:26)
[2021-10-01 06:48] LABS: Absolute Lymphocyte Count 1.29 X10^3/uL (0.83-4.51); Absolute Neutrophil Count 10.8 X10^3/uL (2.0-7.7); Basophil# 0.05 X10^3/uL; Basophil% 0.4 % (0-1); Eosinophil# 0.17 X10^3/uL; Eosinophils% 1.3 % (0-5); Hematocrit 29.1 % (37-47); Hemoglobin 9.4 g/dL (12.0-15.0); Lymphocyte # 1.29 X10^3/ul (0.83-4.51); Lymphocyte % 9.7 % (19-41); Mean Corp Hgb Conc 32.3 g/dL (32-36); Mean Corpuscular Hgb 36.2 pg (27.0-32.0); Mean Corpuscular Volume 111.9 fL (81-99); Mean Platelet Vol. 9.5 fl (6.2-12.0); Monocyte# 0.96 X10^3/uL; Monocyte% 7.2 % (0-10); NRBC Flagged by Analyzer 0 % (0-5); Neutrophil # 10.75 X10^3/uL (2.7-7.7); Neutrophil % 80.4 % (47-70); Platelet Count 265 K/mm3 (150-450); RBC Distribution Width CV 12.7 % (11.6-14.6); RBC Distribution Width SD 52.2 fl (35.1-43.9); White Blood Count 13.4 K/mm3 (4.4-11.0)
[2021-10-01 07:47] LABS: Anion Gap 7 (5-15); BUN 6 mg/dL (7-18); BUN/Creat Ratio 14.7 RATIO (10-20); Calcium,Total 5.8 mg/dL (8.5-10.1); Chloride 110 mmol/L (98-107); Creatinine, Serum 0.41 mg/dL (0.55-1.02); EST Glomerular Filtration Rate 164 mL/min (>60); Est Glom Filt Rate - Afr Amer 198 mL/min (>60); Estimated Creatinine Clearance 39.34 ml/min; Glucose 104 mg/dL (74-106); Phosphorus 1.6 mg/dL (2.5-4.9); Sodium Level 140 mmol/L (136-145)
[2021-10-01] MEDS: Anastrozole 1 MG TABLET PO (08:09)
[2021-10-01] MEDS: Clopidogrel Bisulfate 75 MG Tablet PO (08:09)
[2021-10-01] MEDS: Aspirin E.C. 81 MG Tablet PO (08:09)
--- NOTE | 2021-10-01 08:21 | PN.CC_ITS ---
Assessment & Plan Assessment/Plan (1) Stroke determined by clinical assessment: (2) Hypotension: (3) Tobacco use disorder: PLAN: Plan RECOMMENDATIONS: 1. Consider orthostatics 2. Aggressive electrolyte repletion 3. Monitor electrolytes closely for possible refeeding syndrome 4. Check orthostatics if symptomatic when working with therapy 5. Encourage smoking cessation. Possible outpatient PFT IMPRESSIONS: 1. Acute CVA status post tPA Patient with good response to tPA. NIH has gone from 7 down to 1. Patient's blood pressures have been marginal. Continue with post tPA protocol. Patient's MRI shows no area of infarct. Continue with therapies. If patient becomes symptomatic with change in body position, orthostatic should be obtained prior to working with therapy. Clinical suspicion for A. fib as an etiology 2. Hypotension Unclear etiology. Patient does have a frail appearance and there is some concern for volume depletion. Patient has received IV fluids overnight and done okay. Could consider midodrine. Low clinical suspicion for sepsis as an etiology. Patient does have significantly low magnesium and calcium, so this will be supplemented. Patient does not appear to be significantly volume depleted. Some concern for malnutrition with refeeding syndrome complicating overall condition. 3. Hypokalemia/history of breast cancer/hyperlipidemia/GERD/COPD/advanced age/CAD Complicates care, management, recovery and prognosis. Patient does not appear to be in exacerbation of COPD at this time. Bronchodilators are likely sufficient. Likely okay to reinitiate Plavix and aspirin once IVH has been ruled out. Patient has been placed on a high-dose statin. Subjective Subjective Patient transferred out of the intensive care unit yesterday. Patient subjectively feels back to her baseline. However, patient has had marginal blood pressures. No orthostatic symptoms have been reported. Patient is not reporting any neurologic complications. Objective Data Objective Data Vital Signs: Vital Signs Temp Pulse Resp BP Pulse Ox FiO2 36.8 C 92 18 70/40 L 94 2 10/01/21 08:03 10/01/21 08:03 10/01/21 08:03 10/01/21 08:03 10/01/21 08:03 10/01/21 06:11 Oxygen Flow Rate (L/min) 2 Oxygen Delivery Method Room Air Weight: 48.3 kg Body Mass Index (BMI) 17.4 Intake & Output: Intake and Output for Last 24 Hours 0609/30/21 10/01/21 23:59 23:59 23:59 Intake Total 3456.07 / 3456.07 4476.67 / 4676.67 1091.67 / 1091.67 Output Total 550 / 800 2400 / 2600 200 / 200 Balance 2906.07 / 2656.07 2076.67 / 2076.67 891.67 / 891.67 Lab / Micro Data Attestation: I reviewed the patient's lab results. Result Diagrams: 10/01/21 06:15 10/01/21 06:15 Labs: Laboratory Results - last 24 hr 09/30/21 08:15: Magnesium < 0.3 L* 09/30/21 08:15: Total Bilirubin 0.30, Direct Bilirubin 0.08, AST 32, ALT 18, Alkaline Phosphatase 58, Total Protein 5.9 L, Albumin 2.1 L, Globulin 3.8 09/30/21 08:15: Iron 64, TIBC 140 L, Iron Saturation 45.7 09/30/21 15:12: Magnesium 2.2 10/01/21 06:15: WBC 13.4 H, RBC 2.60 L, Hgb 9.4 L, Hct 29.1 L, MCV 111.9 H, MCH 36.2 H, MCHC 32.3, RDW Std Deviation 52.2 H, RDW Coeff of Rosa 12.7, Plt Count 265, MPV 9.5, Immature Gran % (Auto) 1.000 H, Neut % (Auto) 80.4 H, Lymph % (Auto) 9.7 L, [place] % (Auto) 7.2, Eos % (Auto) 1.3, Baso % (Auto) 0.4, Absolute Neuts (auto) 10.8 H, Absolute Lymphs (auto) 1.29, Nucleated RBC % 0 10/01/21 06:15: Sodium 140, Potassium 4.0, Chloride 110 H, Carbon Dioxide 23.0, Anion Gap 7, BUN 6 L, Creatinine 0.41 L, Estim Creat Clear Calc 39.34, Est GFR (MDRD) Af Amer 198, Est GFR (MDRD) Non-Af 164, BUN/Creatinine Ratio 14.7, Glucose 104, Calcium 5.8 L*, Phosphorus 1.6 L, Magnesium 1.0 L Radiography Diagnostic Testing: Radiology Impression Brain MRI 09/30/21 12:20 IMPRESSION: Involutional changes of the brain, as described above. No acute infarct. Electronically Signed: Yfn Duvall MD at 14:08 EDT , Rhythm Strip Rhythm Strip: Sinus Rhythm Rate: 92 Ectopy: None Physical Exam Const alert, oriented x3 and no apparent distress General Appearance: cooperative, well kempt, well developed and frail HEENT normocephalic, head/scalp atraumatic, hearing grossly normal bilaterally and moist oral mucous membranes Eyes PERRL, EOMs intact bilaterally and conjunctivae normal Neck supple, no JVD, thyroid normal and no carotid bruits General: trachea midline Resp normal respiratory effort, no retractions, no use of accessory muscles and clear to auscultation bilaterally Auscultation: diminished lung sounds; Negative for rales, rhonchi or wheezes Cardio regular rate, regular rhythm, S1 normal heart sound, S2 normal heart sound, no murmurs, no rub and no gallops GI normal to inspection, nondistended, normoactive bowel sounds, soft to palpation, non-tender and non-distended Extremity normal to inspection and no clubbing, cyanosis or edema Skin no rashes or lesions noted General Skin Exam: no breakdown Neuro oriented x3 and CN's II-XII intact bilaterally Neuro Narrative: Mild dysarthria noted. No drift on the right. Sensorium / Orientation: awake, alert, oriented to person, oriented to place and oriented to time Psych affect normal Charges/Coding Visit Charges Inpatient E&M: 26545 Subs Hosp L3
[2021-10-01] MEDS: Midodrine HCl 5 MG Tablet PO ×2 (11:51→16:01)
--- NOTE | 2021-10-01 12:06 | CASEMGMT ---
Discharge Telephone Order Clerk D/C Apple Picking Supervisor provided a list of SNF providers including quality and resource use data and consistent with the patient?s preferred geographic region, medical needs, and insurance network. D/C Apple Picking Supervisor explained to patient the facilities that are highlighted are the ones that take her insurance. Patients Choices: 1. [facility] 2. [facility] D/C Apple Picking Supervisor will fax over referrals. Sobia Ngo Discharge Telephone Order Clerk
[2021-10-01] MEDS: Magnesium Sulfate 4gm/100mL 4 GM/100 ML IV.SOLN. IV (12:15)
--- NOTE | 2021-10-01 12:21 | CASEMGMT ---
Discharge Therapy Site Coordinator Faxed over referral to [facility]. Will follow up. Sobia Ngo Discharge Therapy Site Coordinator
--- NOTE | 2021-10-01 13:20 | CASEMGMT ---
Therapy is recommending patient go somewhere short term for rehab. D/C merchandise planning manager Sobia spoke with patient and provided a list of SNF providers including quality and resource use data and consistent with the patient?s preferred geographic region, medical needs, and insurance network. Physician was in patient's room and said patient's first choice is [facility] and second is [facility]. D/C merchandise planning manager Sobia made referral to [facility]. Amber Paiz LEARNING COORDINATOR DAVID
[2021-10-01] MEDS: Dicyclomine 10 MG Capsule PO (16:01)
--- NOTE | 2021-10-01 18:06 | PN.HOSP_ITS ---
Subjective Subjective Patient was seen and examined today, I had a talk with neuroradiology last night by phone and they stated that they felt the patient had a TIA rather than a stroke. Patient's been acting restless this afternoon, she is redirectable however and she answers questions appropriately according to nursing. According to the patient's family, she does not drink alcohol. Patient was consented this morning to go to an extended care facility for inpatient rehab services-she picked [facility] as her choice. Patient's blood pressures been low today, I placed her on midodrine. Her phosphorus was low this morning I have written for phosphorus replacement and her magnesium was low, Objective Data Objective Data Vital Signs: Vital Signs Temp Pulse Resp BP Pulse Ox FiO2 98.5 F 99 18 88/68 L 94 2 10/01/21 17:01 10/01/21 17:01 10/01/21 17:01 10/01/21 17:01 10/01/21 17:01 10/01/21 06:11 Oxygen Flow Rate (L/min) 2 Oxygen Delivery Method Room Air Weight: 48.3 kg Body Mass Index (BMI) 17.4 Intake & Output: Intake and Output for Last 24 Hours 09/29/21 09/30/21 10/01/21 23:59 23:59 23:59 Intake Total 3456.07 / 3456.07 4476.67 / 4676.67 2301.67 / 2301.67 Output Total 550 / 800 2400 / 2600 200 / 200 Balance 2906.07 / 2656.07 2076.67 / 2076.67 2101.67 / 2101.67 Lab / Micro Data Result Diagrams: 10/01/21 06:15 10/01/21 06:15 Labs: Laboratory Results - last 24 hr 10/01/21 06:15: WBC 13.4 H, RBC 2.60 L, Hgb 9.4 L, Hct 29.1 L, MCV 111.9 H, MCH 36.2 H, MCHC 32.3, RDW Std Deviation 52.2 H, RDW Coeff of Rosa 12.7, Plt Count 265, MPV 9.5, Immature Gran % (Auto) 1.000 H, Neut % (Auto) 80.4 H, Lymph % (Auto) 9.7 L, [place] % (Auto) 7.2, Eos % (Auto) 1.3, Baso % (Auto) 0.4, Absolute Neuts (auto) 10.8 H, Absolute Lymphs (auto) 1.29, Nucleated RBC % 0 10/01/21 06:15: Sodium 140, Potassium 4.0, Chloride 110 H, Carbon Dioxide 23.0, Anion Gap 7, BUN 6 L, Creatinine 0.41 L, Estim Creat Clear Calc 39.34, Est GFR (MDRD) Af Amer 198, Est GFR (MDRD) Non-Af 164, BUN/Creatinine Ratio 14.7, Glucose 104, Calcium 5.8 L*, Phosphorus 1.6 L, Magnesium 1.0 L Radiography Diagnostic Testing: Radiology Impression Echocardiogram 09/30/21 15:58 Interpretation Summary The estimated ejection fraction is 55-60 %. Normal LV Systolic function Mild MR Mild -Moderate TR Pulmonary artery systolic pressure is 45mmhg No significant changes from previous echo of 11/2016 Ordering Physician: Tam Ruelas Referring Physician: CLARA PHILLIPS Performed By: Zoltan Manrique RCS Rhythm Strip Rhythm Strip: Sinus Rhythm Rate: 92 Ectopy: None Physical Exam Const alert, oriented x3, no apparent distress and average body habitus Constitutional Narrative: Patient appears older than her stated age HEENT head/scalp atraumatic, moist oral mucous membranes and oropharynx normal Eyes PERRL, EOMs intact bilaterally and conjunctivae normal Neck supple and no JVD Resp normal respiratory effort, no retractions, no use of accessory muscles and clear to auscultation bilaterally Cardio regular rate, regular rhythm, S1 normal heart sound, S2 normal heart sound and no murmurs GI normal to inspection, nondistended, normoactive bowel sounds, soft to palpation and non-tender Neuro oriented x3, CN's II-XII intact bilaterally, moves all extremities and no focal motor deficits Psych affect normal Assessment & Plan Assessment/Plan (1) TIA (transient ischemic attack): PLAN: Plan 1. Transient ischemic attack-patient is now on Plavix and aspirin, echocardiogram today showed no evidence of atrial septal defect #2 hypophosphatemia-phosphate was given today, labs will be rechecked tomorrow #3 hypomagnesemia-magnesium supplementation was given to the patient today, magnesium level will be checked tomorrow #4 hypocalcemia-patient was given IV calcium today, calcium level will be checked tomorrow again #5 5 hypotension-patient was placed on midodrine 5 mg 3 times daily #6 GERD-patient is on Protonix #7 chronic obstructive pulmonary disease-DuoNeb aerosols we will continue #8 coronary artery disease-patient is back on Plavix and aspirin #9 delirium-patient was confused this afternoon, she was directable however and she answered simple questions appropriately. I discussed this with critical care briefly on the phone, they stated that the patient may have delirium because of the electrolyte abnormality. Patient will be followed closely. Charges/Coding Visit Charges Inpatient E&M: 62809 Subs Hosp L2
[2021-10-01] MEDS: Ipratropium/Albuterol Sulfate 3 ML AMPUL.NEB INHALATION (18:40)
[2021-10-01 19:48] LABS: Magnesium 2.4 mg/dL (1.6-2.6)
[2021-10-01] MEDS: Pantoprazole Sodium 20 MG Tablet PO (20:05)
[2021-10-01] MEDS: Atorvastatin Calcium 80 MG Tablet PO (20:06)
--- NOTE | 2021-10-01 20:36 | NURSING ---
K-phos and Potassium Chloride are not compatible, Patient will not let RN place a second line at this time. NS/Potassium Chloride is on hold at this time.
--- NOTE | 2021-10-01 21:25 | NURSING ---
David Joiner called on patient. Patient is hitting, scratching, kicking staff, being verbally abusive. Patient became very agitated when told unable to smoke cigerettes. MD came to floor, updated about patient receiving TPA and has had very low BP's, Patient has become more confused and belligerent with staff. MD spoke to family to update about POC and having to restraint patient due to her trying to hurt staff, family is agreeable with plan.
[2021-10-01] MEDS: LORazepam 2 MG/ML Syringe IV (21:49)
--- NOTE | 2021-10-01 22:02 | PCM.HOSP.N ---
Hospitalist Note Code aggie called patient had struck and scratch staff. When I walked in the room patient was very paranoid and demanding a get out of the room before even said anything. Patient was throwing objects while in the room. Patient was a clear risk to herself and staff. Patient's daughter, who is next of kin, was contacted and the case was addressed with her and she agreed to proceed with temporary physical restraints to prevent further harm to staff as well potential harm to the patient and for chemical sedation to calm her down. On this will allow us to treat her medically. Patient did receive a 2 mg of lorazepam and did seem to calm down prior to that but was still very agitated and attempting to bite people.
[2021-10-01] MEDS: Haloperidol Lactate 5 MG/ML Vial 2 MG IV (23:27)
[2021-10-01] MEDS: 0.9% Saline Lock 10 ML Syringe IV (23:28)
[2021-10-01] MEDS: QUEtiapine 25 MG Tablet PO (23:55)
[2021-10-02] VITALS (17 sets, daily range): BP systolic 98–131; BP diastolic 56–102; PULSE 87–125; RESP 16–30; TEMP 36.7–37.1; O2SAT 94–98; BMI 17.4
[2021-10-02] MEDS: KCL 20MEQ in 0.9% NS 20 MEQ/1,000 ML IV.SOLN. 125 MEQ IV ×3 (03:11→18:27)
[2021-10-02] MEDS: 0.9% Saline Lock 10 ML Syringe IV (06:16)
[2021-10-02] MEDS: Haloperidol Lactate 5 MG/ML Vial 2 MG IV (06:16)
--- NOTE | 2021-10-02 06:51 | NURSING ---
Patient pulled off telemetry, RN attempted to put back on but patient is trying to bite RN.
[2021-10-02 07:43] LABS: Anion Gap 6 (5-15); BUN 6 mg/dL (7-18); BUN/Creat Ratio 14.3 RATIO (10-20); Calcium,Total 6.8 mg/dL (8.5-10.1); Chloride 110 mmol/L (98-107); Creatinine, Serum 0.42 mg/dL (0.55-1.02); EST Glomerular Filtration Rate 158 mL/min (>60); Est Glom Filt Rate - Afr Amer 191 mL/min (>60); Estimated Creatinine Clearance 41.06 ml/min; Glucose 93 mg/dL (74-106); Magnesium 1.8 mg/dL (1.6-2.6); Phosphorus 1.4 mg/dL (2.5-4.9); Potassium 4.3 mmol/L (3.5-5.1); Sodium Level 137 mmol/L (136-145)
[2021-10-02] MEDS: Ipratropium/Albuterol Sulfate 3 ML AMPUL.NEB INHALATION ×3 (07:46→19:50)
--- NOTE | 2021-10-02 07:50 | PN.CC_ITS ---
Assessment & Plan Assessment/Plan (1) Stroke determined by clinical assessment: (2) Hypotension: (3) Tobacco use disorder: PLAN: Plan RECOMMENDATIONS: 1. Continue midodrine 2. Aggressive electrolyte repletion 3. Monitor electrolytes daily for possible refeeding syndrome 4. Continue with delirium protocol 5. Encourage smoking cessation. Possible outpatient PFT IMPRESSIONS: 1. Acute CVA status post tPA Patient with good response to tPA. NIH has gone from 7 down to 1. Patient's blood pressures have been marginal. Continue with post tPA protocol. Patient's MRI shows no area of infarct. Continue with therapies. If patient becomes symptomatic with change in body position, orthostatic should be obtained prior to working with therapy. Clinical suspicion for A. fib as an etiology 2. Hypotension/metabolic encephalopathy Unclear etiology. Patient does have a frail appearance and there is some concern for volume depletion. Patient has received IV fluids overnight and done okay. Good response to midodrine therapy. Low clinical suspicion for sepsis as an etiology. Patient does have significantly low magnesium, phosphorus and calcium, so this will be supplemented. Patient does not appear to be significantly volume depleted. Some concern for malnutrition with refeeding syndrome complicating overall condition. Continue with delirium protocol 3. Hypokalemia/history of breast cancer/hyperlipidemia/GERD/COPD/advanced age/CAD Complicates care, management, recovery and prognosis. Patient does not appear to be in exacerbation of COPD at this time. Bronchodilators are likely sufficient. Reinitiated Plavix and aspirin since IVH has been ruled out. Patient has been placed on a high-dose statin. Subjective Subjective Patient did okay from a hemodynamic standpoint overnight, but has had significant issues with confusion and impulsivity. Sitter is at the bedside. Patient was able to recognize me, but was not aware of my name. Objective Data Objective Data Vital Signs: Vital Signs Temp Pulse Resp BP Pulse Ox FiO2 36.7 C 125 H 18 106/93 H 98 2 10/02/21 03:12 10/02/21 06:13 10/02/21 03:12 10/02/21 03:12 10/02/21 03:12 10/01/21 06:11 Oxygen Flow Rate (L/min) 2 Oxygen Delivery Method Nasal Cannula Weight: 50.4 kg Body Mass Index (BMI) 17.4 Intake & Output: Intake and Output for Last 24 Hours 09/30/21 10/01/2110/02/22 23:59 23:59 23:59 Intake Total 4476.67 / 4676.67 3445.00 / 3445.00 473.57 / 473.57 Output Total 2400 / 2600 200 / 200 Balance 2076.67 / 2076.67 3245.00 / 3245.00 473.57 / 473.57 Lab / Micro Data Attestation: I reviewed the patient's lab results. Result Diagrams: 10/01/21 06:15 10/02/21 07:05 Labs: Laboratory Results - last 24 hr 10/01/21 19:05: Magnesium 2.4 10/02/21 07:05: Sodium 137, Potassium 4.3, Chloride 110 H, Carbon Dioxide 21.0, Anion Gap 6, BUN 6 L, Creatinine 0.42 L, Estim Creat Clear Calc 41.06, Est GFR (MDRD) Af Amer 191, Est GFR (MDRD) Non-Af 158, BUN/Creatinine Ratio 14.3, Glucose 93, Calcium 6.8 L, Phosphorus 1.4 L, Magnesium 1.8 Radiography Diagnostic Testing: Radiology Impression Echocardiogram 09/30/21 15:58 Interpretation Summary The estimated ejection fraction is 55-60 %. Normal LV Systolic function Mild MR Mild -Moderate TR Pulmonary artery systolic pressure is 45mmhg No significant changes from previous echo of 11/2016 Ordering Physician: Tam Ruelas Referring Physician: CLARA PHILLIPS Performed By: Zoltan Manrique RCS Rhythm Strip Rhythm Strip: Sinus Rhythm Rate: 92 Ectopy: None Physical Exam Const alert and no apparent distress; Negative for oriented x3 General Appearance: cooperative, well kempt, well developed and frail HEENT normocephalic, head/scalp atraumatic, hearing grossly normal bilaterally and moist oral mucous membranes Eyes PERRL, EOMs intact bilaterally and conjunctivae normal Neck supple, no JVD, thyroid normal and no carotid bruits General: trachea midline Resp normal respiratory effort, no retractions, no use of accessory muscles and clear to auscultation bilaterally Auscultation: diminished lung sounds; Negative for rales, rhonchi or wheezes Cardio regular rate, regular rhythm, S1 normal heart sound, S2 normal heart sound, no murmurs, no rub and no gallops Rhythm: abnormal rhythm irregularly irregular GI normal to inspection, nondistended, normoactive bowel sounds, soft to palpation, non-tender and non-distended Extremity normal to inspection and no clubbing, cyanosis or edema Skin no rashes or lesions noted General Skin Exam: no breakdown Neuro oriented x3 and CN's II-XII intact bilaterally Neuro Narrative: Mild dysarthria noted. No drift on the right. Sensorium / Orientation: awake, alert, oriented to person, oriented to place and oriented to time Psych affect normal Charges/Coding Visit Charges Inpatient E&M: 53712 Subs Hosp L2
[2021-10-02] MEDS: Clopidogrel Bisulfate 75 MG Tablet PO (09:31)
[2021-10-02] MEDS: Anastrozole 1 MG TABLET PO (09:31)
[2021-10-02] MEDS: Midodrine HCl 5 MG Tablet PO ×3 (09:31→16:39)
[2021-10-02] MEDS: Aspirin E.C. 81 MG Tablet PO (09:31)
--- NOTE | 2021-10-02 10:27 | NURSING ---
This RN called and updated pt's daughter's Libertad and Soo on pt's status.
[2021-10-02] MEDS: Dicyclomine 10 MG Capsule PO ×2 (10:54→16:39)
[2021-10-02] MEDS: Acetaminophen 500 MG Tablet 1000 MG PO ×2 (14:27→20:40)
--- NOTE | 2021-10-02 16:32 | PN.HOSP_ITS ---
Subjective Subjective Patient was seen and examined morning, this morning patient was belligerent and agitated, she resisted examination, this afternoon, patient's demeanor changed and she appeared to go back to her baseline and was cooperative. Objective Data Objective Data Vital Signs: Vital Signs Temp Pulse Resp BP Pulse Ox FiO2 98.3 F 112 H 16 115/99 H 94 2 10/02/21 13:00 10/02/21 14:39 10/02/21 13:36 10/02/21 13:00 10/02/21 13:36 10/01/21 06:11 Oxygen Flow Rate (L/min) 2 Oxygen Delivery Method Nasal Cannula Weight: 50.4 kg Body Mass Index (BMI) 17.4 Intake & Output: Intake and Output for Last 24 Hours 09/30/21 10/01/21 10/02/21 23:59 23:59 23:59 Intake Total 4476.67 / 4676.67 3445.00 / 3445.00 1958.15 / 1957.15 Output Total 2400 / 2600 200 / 200 / Balance 2076.67 / 2076.67 3245.00 / 3245.00 1956.15 / 1956.15 Lab / Micro Data Result Diagrams: 10/01/21 06:15 10/02/21 07:05 Labs: Laboratory Results - last 24 hr 10/01/21 19:05: Magnesium 2.4 10/02/21 07:05: Sodium 137, Potassium 4.3, Chloride 110 H, Carbon Dioxide 21.0, Anion Gap 6, BUN 6 L, Creatinine 0.42 L, Estim Creat Clear Calc 41.06, Est GFR (MDRD) Af Amer 191, Est GFR (MDRD) Non-Af 158, BUN/Creatinine Ratio 14.3, Glucose 93, Calcium 6.8 L, Phosphorus 1.4 L, Magnesium 1.8 Rhythm Strip Rhythm Strip: Sinus Rhythm Rate: 92 Ectopy: None Physical Exam Const alert, oriented x3, no apparent distress and average body habitus Constitutional Narrative: Patient appears older than her stated age General Appearance: cooperative, well kempt and well developed Orientation / Consciousness: awake, oriented to person, oriented to place and o riented to time HEENT normocephalic, head/scalp atraumatic, hearing grossly normal bilaterally, moist oral mucous membranes and oropharynx normal Eyes PERRL, EOMs intact bilaterally and conjunctivae normal Neck nuchal rigidity, supple, no JVD, thyroid normal and no carotid bruits General: trachea midline Resp normal respiratory effort, no retractions, no use of accessory muscles and clear to auscultation bilaterally Auscultation: Negative for rales, rhonchi or wheezes Cardio regular rate, regular rhythm, S1 normal heart sound, S2 normal heart sound, no murmurs, no rub and no gallops GI normal to inspection, nondistended, normoactive bowel sounds, soft to palpation, non-tender and non-distended Extremity normal to inspection and no clubbing, cyanosis or edema Skin no rashes or lesions noted General Skin Exam: no breakdown Neuro oriented x3, CN's II-XII intact bilaterally, moves all extremities, no focal motor deficits and no sensory deficits noted Neuro Narrative: Patient has some slurred speech today-this is greatly improved from yesterday's speech pattern Sensorium / Orientation: awake, alert, oriented to person, oriented to place and oriented to time Speech: speech normal Psych affect normal Assessment & Plan Assessment/Plan (1) TIA (transient ischemic attack): PLAN: Plan 1. Transient ischemic attack-patient is now on Plavix and aspirin #2 hypophosphatemia-phosphate was given today, labs will be rechecked tomorrow #3 hypomagnesemia-magnesium supplementation was given to the patient today, magnesium level will be checked tomorrow #4 hypocalcemia-patient was given IV calcium today, calcium level will be checked tomorrow again #5 5 hypotension-patient was placed on midodrine 5 mg 3 times daily, blood pressure is improved today #6 GERD-patient is on Protonix #7 chronic obstructive pulmonary disease-DuoNeb aerosols we will continue #8 coronary artery disease-patient is back on Plavix and aspirin #9 delirium-probably metabolic encephalopathy from electrolyte imbalance-patient is alert and appropriate this afternoon, continue PT and OT Charges/Coding Visit Charges Inpatient E&M: 51255 Subs Hosp L2
[2021-10-02] MEDS: Atorvastatin Calcium 80 MG Tablet PO (20:40)
[2021-10-02] MEDS: Pantoprazole Sodium 20 MG Tablet PO (20:40)
[2021-10-02] MEDS: QUEtiapine 25 MG Tablet PO (20:40)
[2021-10-03] VITALS (17 sets, daily range): BP systolic 75–99; BP diastolic 56–74; PULSE 78–118; RESP 14–30; TEMP 36.3–37; O2SAT 86–96; BMI 17.4
[2021-10-03] MEDS: KCL 20MEQ in 0.9% NS 20 MEQ/1,000 ML IV.SOLN. 125 MEQ IV ×3 (02:45→18:02)
[2021-10-03] MEDS: Dicyclomine 10 MG Capsule PO ×3 (05:24→15:49)
[2021-10-03] MEDS: Ipratropium/Albuterol Sulfate 3 ML AMPUL.NEB INHALATION ×3 (05:50→19:40)
[2021-10-03 06:41] LABS: Anion Gap 6 (5-15); BUN 8 mg/dL (7-18); BUN/Creat Ratio 17.6 RATIO (10-20); Calcium,Total 6.9 mg/dL (8.5-10.1); Chloride 115 mmol/L (98-107); Creatinine, Serum 0.45 mg/dL (0.55-1.02); EST Glomerular Filtration Rate 144 mL/min (>60); Est Glom Filt Rate - Afr Amer 175 mL/min (>60); Estimated Creatinine Clearance 41.06 ml/min; Glucose 95 mg/dL (74-106); Magnesium 1.3 mg/dL (1.6-2.6); Phosphorus 1.6 mg/dL (2.5-4.9); Potassium 4.8 mmol/L (3.5-5.1); Sodium Level 142 mmol/L (136-145)
--- NOTE | 2021-10-03 07:32 | PCM.PN.INT ---
Assessment & Plan Assessment/Plan (1) Stroke determined by clinical assessment: (2) Hypotension: (3) Tobacco use disorder: PLAN: Plan RECOMMENDATIONS: 1. Continue midodrine. 2. Continue aggressive electrolyte repletion 3. Monitor electrolytes daily for possible refeeding syndrome 4. Continue with delirium protocol 5. Encourage smoking cessation. Possible outpatient PFT 6. Hemodynamically stable on minimal nasal cannula. Will sign off from a pulmonary/critical care perspective IMPRESSIONS: 1. Acute CVA status post tPA Patient with good response to tPA. NIH has gone from 7 down to 1. Patient's blood pressures have been marginal. Continue with post tPA protocol. Patient's MRI shows no area of infarct. Continue with therapies. If patient becomes symptomatic with change in body position, orthostatic should be obtained prior to working with therapy. Clinical suspicion for A. fib as an etiology 2. Hypotension/metabolic encephalopathy Improved. Unclear etiology. Patient does have a frail appearance and there is some concern for volume depletion. Patient has received IV fluids overnight and done okay. Good response to midodrine therapy. Low clinical suspicion for sepsis as an etiology. Patient does have significantly low magnesium, phosphorus and calcium, so this will be supplemented. Patient does not appear to be significantly volume depleted. Some concern for malnutrition with refeeding syndrome complicating overall condition. Continue with delirium protocol 3. Hypokalemia/history of breast cancer/hyperlipidemia/GERD/COPD/advanced age/CAD Complicates care, management, recovery and prognosis. Patient does not appear to be in exacerbation of COPD at this time. Bronchodilators are likely sufficient. Reinitiated Plavix and aspirin since IVH has been ruled out. Patient has been placed on a high-dose statin. Subjective Subjective Patient did well overnight. Patient's mentation has significantly improved compared to yesterday. Patient is more interactive and able to follow commands. Patient with no complaints at this time, but has little recollection of yesterday. Objective Data Objective Data Vital Signs: Vital Signs Temp Pulse Resp BP Pulse Ox FiO2 36.6 C 108 H 18 87/70 L 96 2 10/03/21 07:25 10/03/21 07:25 10/03/21 07:25 10/03/21 07:25 10/03/21 07:25 10/01/21 06:11 Oxygen Flow Rate (L/min) 2 Oxygen Delivery Method Nasal Cannula Weight: 50.3 kg Body Mass Index (BMI) 17.4 Intake & Output: Intake and Output for Last 24 Hours 10/01/21 10/02/21 10/03/21 23:59 23:59 23:59 Intake Total 3445.00 / 3445.00 3561.90 / 3621.90 1060 / 1060 Output Total 200 / 200 Balance 3245.00 / 3245.00 3560.90 / 3620.90 1060 / 1060 Lab / Micro Data Attestation: I reviewed the patient's lab results. Result Diagrams: 10/01/21 06:15 10/03/21 06:03 Labs: Laboratory Results - last 24 hr 10/02/21 07:05: Sodium 137, Potassium 4.3, Chloride 110 H, Carbon Dioxide 21.0, Anion Gap 6, BUN 6 L, Creatinine 0.42 L, Estim Creat Clear Calc 41.06, Est GFR (MDRD) Af Amer 191, Est GFR (MDRD) Non-Af 158, BUN/Creatinine Ratio 14.3, Glucose 93, Calcium 6.8 L, Phosphorus 1.4 L, Magnesium 1.8 10/03/21 06:03: Sodium 142, Potassium 4.8, Chloride 115 H, Carbon Dioxide 21.0, Anion Gap 6, BUN 8, Creatinine 0.45 L, Estim Creat Clear Calc 41.06, Est GFR (MDRD) Af Amer 175, Est GFR (MDRD) Non-Af 144, BUN/Creatinine Ratio 17.6, Glucose 95, Calcium 6.9 L, Phosphorus 1.6 L, Magnesium 1.3 L Rhythm Strip Rhythm Strip: Sinus Rhythm Rate: 92 Ectopy: None Physical Exam Const alert, oriented x3 and no apparent distress General Appearance: cooperative, well kempt, well developed and frail HEENT normocephalic, head/scalp atraumatic and moist oral mucous membranes Eyes PERRL, EOMs intact bilaterally and conjunctivae normal Neck supple, no JVD, thyroid normal and no carotid bruits General: trachea midline Resp normal respiratory effort, no retractions, no use of accessory muscles and clear to auscultation bilaterally Auscultation: diminished lung sounds; Negative for rales, rhonchi or wheezes Cardio regular rate, regular rhythm, S1 normal heart sound, S2 normal heart sound, no murmurs, no rub and no gallops Rhythm: abnormal rhythm irregularly irregular GI normal to inspection, nondistended, normoactive bowel sounds, soft to palpation, non-tender and non-distended Extremity normal to inspection and no clubbing, cyanosis or edema Skin no rashes or lesions noted General Skin Exam: no breakdown Neuro oriented x3 and CN's II-XII intact bilaterally Neuro Narrative: Mild dysarthria noted. No drift on the right. Sensorium / Orientation: awake, alert, oriented to person and oriented to place Psych affect normal Charges/Coding Visit Charges Inpatient E&M: 57486 Subs Hosp L2
[2021-10-03] MEDS: Magnesium Sulfate 4gm/100mL 4 GM/100 ML IV.SOLN. IV (07:37)
[2021-10-03] MEDS: Acetaminophen 500 MG Tablet 1000 MG PO ×3 (07:38→23:38)
[2021-10-03] MEDS: Midodrine HCl 5 MG Tablet PO (07:39)
[2021-10-03] MEDS: Aspirin E.C. 81 MG Tablet PO (07:39)
[2021-10-03] MEDS: Clopidogrel Bisulfate 75 MG Tablet PO (10:00)
[2021-10-03] MEDS: Anastrozole 1 MG TABLET PO (10:00)
[2021-10-03] MEDS: Midodrine HCl 5 MG Tablet 10 MG PO ×2 (11:20→15:49)
--- NOTE | 2021-10-03 13:53 | PN.HOSP_ITS ---
Subjective Subjective Patient was seen and examined today, she is alert and appropriate. Her electrolytes are still not corrected-phosphorus is low, magnesium is low, and calcium remains low. I have written for IV supplementation and repeat labs tomorrow. Objective Data Objective Data Vital Signs: Vital Signs Temp Pulse Resp BP Pulse Ox FiO2 97.9 F 93 18 97/74 96 2 10/03/21 13:00 10/03/21 13:13 10/03/21 13:13 10/03/21 13:00 10/03/21 13:00 10/01/21 06:11 Oxygen Flow Rate (L/min) 2 Oxygen Delivery Method Nasal Cannula Weight: 50.3 kg Body Mass Index (BMI) 17.4 Intake & Output: Intake and Output for Last 24 Hours 10/01/21 10/02/21 10/03/21 23:59 23:59 23:59 Intake Total 3445.00 / 3445.00 3561.90 / 3621.90 2586.25 / 2586.25 Output Total 200 / 200 1 / 1 300 / 300 Balance 3245.00 / 3245.00 3560.90 / 3620.90 2286.25 / 2286.25 Lab / Micro Data Result Diagrams: 10/01/21 06:15 10/03/21 06:03 Labs: Laboratory Results - last 24 hr 10/03/21 06:03: Sodium 142, Potassium 4.8, Chloride 115 H, Carbon Dioxide 21.0, Anion Gap 6, BUN 8, Creatinine 0.45 L, Estim Creat Clear Calc 41.06, Est GFR (MDRD) Af Amer 175, Est GFR (MDRD) Non-Af 144, BUN/Creatinine Ratio 17.6, Glucose 95, Calcium 6.9 L, Phosphorus 1.6 L, Magnesium 1.3 L Rhythm Strip Rhythm Strip: Sinus Rhythm Rate: 92 Ectopy: None Physical Exam Const alert, oriented x3, no apparent distress and average body habitus Constitutional Narrative: Patient appears older than her stated age General Appearance: cooperative, well kempt and well developed Orientation / Consciousness: awake, oriented to person, oriented to place and oriented to time HEENT normocephalic, head/scalp atraumatic, hearing grossly normal bilaterally, moist oral mucous membranes and oropharynx normal Eyes PERRL, EOMs intact bilaterally and conjunctivae normal Neck nuchal rigidity, supple, no JVD, thyroid normal and no carotid bruits General: trachea midline Resp normal respiratory effort, no retractions, no use of accessory muscles and clear to auscultation bilaterally Auscultation: Negative for rales, rhonchi or wheezes Cardio regular rate, regular rhythm, S1 normal heart sound, S2 normal heart sound, no murmurs, no rub and no gallops GI normal to inspection, nondistended, normoactive bowel sounds, soft to palpation, non-tender and non-distended Extremity normal to inspection and no clubbing, cyanosis or edema Skin no rashes or lesions noted General Skin Exam: no breakdown Neuro oriented x3, CN's II-XII intact bilaterally, moves all extremities, no focal motor deficits and no sensory deficits noted Neuro Narrative: Patient has some slurred speech today-this is greatly improved from yesterday's speech pattern Sensorium / Orientation: awake, alert, oriented to person, oriented to place and oriented to time Speech: speech normal Psych affect normal Assessment & Plan Assessment/Plan (1) TIA (transient ischemic attack): PLAN: Plan 1. Transient ischemic attack-patient is now on Plavix and aspirin #2 hypophosphatemia-phosphate was given today, labs will be rechecked tomorrow #3 hypomagnesemia-magnesium supplementation was given to the patient today, magnesium level will be checked tomorrow #4 hypocalcemia-patient was given IV calcium today, calcium level will be chec ked tomorrow again #5 5 hypotension-patient's midodrine will be increased to 10 mg 3 times daily #6 GERD-patient is on Protonix #7 chronic obstructive pulmonary disease-DuoNeb aerosols we will continue #8 coronary artery disease-patient is back on Plavix and aspirin #9 delirium-probably metabolic encephalopathy from electrolyte imbalance-patient is alert and appropriate today, continue PT and OT Charges/Coding Visit Charges Inpatient E&M: 02496 Subs Hosp L2
[2021-10-03 14:09] LABS: Magnesium 2.6 mg/dL (1.6-2.6)
[2021-10-03] MEDS: Haloperidol Lactate 5 MG/ML Vial 2 MG IV ×2 (18:20→22:38)
[2021-10-03] MEDS: Pantoprazole Sodium 20 MG Tablet PO (20:25)
[2021-10-03] MEDS: QUEtiapine 25 MG Tablet PO (20:25)
[2021-10-03] MEDS: Atorvastatin Calcium 80 MG Tablet PO (20:25)
--- NOTE | 2021-10-03 21:00 | NURSING ---
Pt threw personal cell phone at this RN, attempting to chew and tear through her iv tubing and throw her tele box. This RN educated pt on the needs of wearing telemetry and the purpose of her iv fluids and asked her to stop her behavior. Pt shouts expletives at staff and is not receptive to care or education. Pt's cell phone placed on counter away from pt for safety purposes.
--- NOTE | 2021-10-03 23:55 | PCM.HOSP.N ---
Hospitalist Note More agitated over night. This despite the haloperidol as well as quetiapine. We will add IV lorazepam as patient has stroke and scratch staff. If that does not work then we will need to make further adjustments consideration of a Precedex drip and patient may require physical restraints again.
[2021-10-04] VITALS (19 sets, daily range): BP systolic 69–112; BP diastolic 54–96; PULSE 77–111; RESP 16–22; TEMP 36.2–37.1; O2SAT 85–97; BMI 17.4
--- NOTE | 2021-10-04 | NURSING ---
Pt removed tele box, staff attempted to re-apply, pt spitting at staff and attempting to hit. Pt did scratch this RN. This RN continues to inform pt that her behavior is not acceptable, pt not receptive to education.
[2021-10-04] MEDS: LORazepam 2 MG/ML Syringe IV ×2 (00:03→22:47)
[2021-10-04] MEDS: 0.9% Saline Lock 10 ML Syringe IV ×3 (00:04→16:38)
[2021-10-04] MEDS: KCL 20MEQ in 0.9% NS 20 MEQ/1,000 ML IV.SOLN. 125 MEQ IV (02:40)
[2021-10-04] MEDS: Dicyclomine 10 MG Capsule PO ×3 (05:40→16:43)
[2021-10-04 05:53] LABS: Anion Gap 6 (5-15); BUN 6 mg/dL (7-18); BUN/Creat Ratio 14.9 RATIO (10-20); Calcium,Total 7.9 mg/dL (8.5-10.1); Chloride 114 mmol/L (98-107); EST Glomerular Filtration Rate 166 mL/min (>60); Est Glom Filt Rate - Afr Amer 201 mL/min (>60); Estimated Creatinine Clearance 43.01 ml/min; Glucose 86 mg/dL (74-106); Magnesium 1.8 mg/dL (1.6-2.6); Phosphorus 2.4 mg/dL (2.5-4.9); Potassium 6.1 mmol/L (3.5-5.1); Sodium Level 139 mmol/L (136-145)
[2021-10-04] MEDS: Sodium Polystyrene Sulfonate 15 GM/60 ML UDC PO ×2 (06:18→11:14)
[2021-10-04] MEDS: Midodrine HCl 5 MG Tablet 10 MG PO ×3 (10:04→21:50)
[2021-10-04] MEDS: Clopidogrel Bisulfate 75 MG Tablet PO (10:05)
[2021-10-04] MEDS: Aspirin E.C. 81 MG Tablet PO (10:05)
[2021-10-04] MEDS: Anastrozole 1 MG TABLET PO (10:05)
[2021-10-04 10:06] LABS: Allen Test Positive; Base Excess -6 mmol/L (-2 to +2); Bicarbonate 18.9 mmol/L (22-26); Blood Gas Specimen Type ART; O2 Delivery Device Cannula; PO2 73 mmHG (75-100); SITE L Radial; SO2 95 % (95-99); Total Carbon Dioxide 20 mmol/L; pCO2 31.1 mmHg (35-45); pH 7.39 (7.35-7.45)
[2021-10-04 10:40] LABS: Absolute Lymphocyte Count 0.78 X10^3/uL (0.83-4.51); Absolute Neutrophil Count 9.7 X10^3/uL (2.0-7.7); Basophil# 0.05 X10^3/uL; Basophil% 0.4 % (0-1); Eosinophil# 0.27 X10^3/uL; Eosinophils% 2.2 % (0-5); Hematocrit 32.6 % (37-47); Hemoglobin 10.1 g/dL (12.0-15.0); Lymphocyte # 0.78 X10^3/ul (0.83-4.51); Lymphocyte % 6.5 % (19-41); Mean Corpuscular Hgb 35.9 pg (27.0-32.0); Mean Platelet Vol. 9.2 fl (6.2-12.0); Monocyte# 1.18 X10^3/uL; Monocyte% 9.8 % (0-10); NRBC Flagged by Analyzer 0 % (0-5); Neutrophil # 9.65 X10^3/uL (2.7-7.7); Neutrophil % 80.4 % (47-70); Platelet Count 274 K/mm3 (150-450); RBC Distribution Width CV 12.9 % (11.6-14.6); RBC Distribution Width SD 54.9 fl (35.1-43.9); Red Blood Count 2.81 M/mm3 (4.2-5.4)
[2021-10-04 10:56] LABS: Anion Gap 6 (5-15); BUN 5 mg/dL (7-18); BUN/Creat Ratio 10.7 RATIO (10-20); Calcium,Total 8.5 mg/dL (8.5-10.1); Chloride 114 mmol/L (98-107); Creatinine, Serum 0.47 mg/dL (0.55-1.02); EST Glomerular Filtration Rate 139 mL/min (>60); Est Glom Filt Rate - Afr Amer 169 mL/min (>60); Estimated Creatinine Clearance 43.01 ml/min; Glucose 86 mg/dL (74-106); Potassium 5.9 mmol/L (3.5-5.1); Sodium Level 138 mmol/L (136-145)
[2021-10-04] MEDS: Acetaminophen 500 MG Tablet 1000 MG PO (13:15)
--- NOTE | 2021-10-04 13:48 | PN.HOSP_ITS ---
Subjective Subjective Patient with significant confusion overnight and was throwing coffee cups at staff as well as trying to punch them and hit them. Apparently her confusion has worsened in the last couple days however she is appear to be confused at baseline. Case management is planning on calling family to discuss possible placement at discharge as therapy had recommended further skilled care prior to discharge home. Objective Data Objective Data Vital Signs: Vital Signs Temp Pulse Resp BP Pulse Ox FiO2 97.5 F L 110 H 18 111/74 96 2 10/04/21 09:55 10/04/21 09:55 10/04/21 09:55 10/04/21 09:55 10/04/21 10:00 10/01/21 06:11 Oxygen Flow Rate (L/min) 2 Oxygen Delivery Method Nasal Cannula Weight: 52.8 kg Body Mass Index (BMI) 17.4 Intake & Output: Intake and Output for Last 24 Hours 10/02/21 10/03/21 10/04/21 23:59 23:59 23:59 Intake Total 3561.90 / 3621.90 3986.25 / 3986.25 2314.1633 / 2314.1633 Output Total 300 / 300 Balance 3560.90 / 3620.90 3686.25 / 3686.25 2314.1633 / 2314.1633 Lab / Micro Data Result Diagrams: 10/04/21 10:25 10/04/21 10:25 Labs: Laboratory Results - last 24 hr 10/03/21 13:50: Magnesium 2.6 10/04/21 05:14: Sodium 139, Potassium 6.1 H*, Chloride 114 H, Carbon Dioxide 19.0 L, Anion Gap 6, BUN 6 L, Creatinine 0.40 L, Estim Creat Clear Calc 43.01, Est GFR (MDRD) Af Amer 201, Est GFR (MDRD) Non-Af 166, BUN/Creatinine Ratio 14.9, Glucose 86, Calcium 7.9 L, Phosphorus 2.4 L, Magnesium 1.8 10/04/21 10:25: Sodium 138, Potassium 5.9 H, Chloride 114 H, Carbon Dioxide 18.0 L, Anion Gap 6, BUN 5 L, Creatinine 0.47 L, Estim Creat Clear Calc 43.01, Est GFR (MDRD) Af Amer 169, Est GFR (MDRD) Non-Af 139, BUN/Creatinine Ratio 10.7, Glucose 86, Calcium 8.5 10/04/21 10:25: WBC 12.0 H, RBC 2.81 L, Hgb 10.1 L, Hct 32.6 L, MCV 116.0 H, MCH 35.9 H, MCHC 31.0 L, RDW Std Deviation 54.9 H, RDW Coeff of Rosa 12.9, Plt Count 274, MPV 9.2, Immature Gran % (Auto) 0.700, Neut % (Auto) 80.4 H, Lymph % (Auto) 6.5 L, [place] % (Auto) 9.8, Eos % (Auto) 2.2, Baso % (Auto) 0.4, Absolute Neuts (auto) 9.7 H, Absolute Lymphs (auto) 0.78 L, Nucleated RBC % 0 ABG Data ABG results: ABG 10/04/21 10:00 Specimen Type ART Sample Site L Radial pH 7.39 Bicarbonate Actual 18.9 L Total CO2 20 Base Excess -6 L O2 Saturation 95 ABG pCO2 31.1 L ABG pO2 73 L Nito Test Positive O2 Delivery Device Cannula Liter Flow 2.0 Rhythm Strip Rhythm Strip: Sinus Rhythm Rate: 92 Ectopy: None Physical Exam Const alert Constitutional Narrative: Thin older white female sitting up in bed, nurses aide at bedside, patient is calm at this time and alert to self, place, and month but not year or president of the [place], confused on other aspects of what has been going on during her hospitalization as well, was cooperative for exam at this time Orientation / Consciousness: confused HEENT head/scalp atraumatic, moist oral mucous membranes and oropharynx normal HEENT Narrative: Dentition is poor, Mallampati is 2, no thrush Eyes PERRL, EOMs intact bilaterally and conjunctivae normal Eyes Narrative: No scleral icterus Neck no lymphadenopathy, supple, no JVD and no carotid bruits Neck Narrative: Trachea midline Resp No normal respiratory effort, no retractions, no use of accessory muscles and No clear to auscultation bilaterally Resp Narrative: Diffuse scattered end expiratory wheeze and diffusely diminished with mild ta chypnea but no signs of extremis Auscultation: wheezes; Negative for crackles, rales or rhonchi Cardio regular rate, regular rhythm, S1 normal heart sound, S2 normal heart sound, no murmurs, no rub, no gallops, no clicks and no JVD GI normal to inspection, nondistended, normoactive bowel sounds, soft to palpation, non-tender and non-distended GI Narrative: Thin scaphoid abdomen Extremity no clubbing, cyanosis or edema Extremity Narrative: Pedal pulses are 1+ bilateral lower extremity Neuro CN's II-XII intact bilaterally, moves all extremities and no focal motor deficits Neuro Narrative: Significant generalized weakness Sensorium / Orientation: awake, alert, oriented to person and oriented to place; Negative for oriented to time Psych Psych Narrative: Patient is currently pleasant however has been combative and aggressive with staff Assessment & Plan Assessment/Plan (1) TIA (transient ischemic attack): (2) Hypotension: (3) Leukocytosis: (4) Metabolic encephalopathy: (5) Hyperkalemia: (6) Macrocytic anemia: (7) Hypophosphatemia: (8) Severe malnutrition: PLAN: Plan Acute stroke versus TIA -Patient presented with slurred speech and right-sided weakness -CTA on admission showed mild atherosclerotic plaque in the bilateral cervical carotid arteries without occlusion or significant stenosis as well as hypoplastic/stenotic areas of the V1 and V2 segments of the vertebral artery fro m C3 to the junction of the subclavian artery on the right -MRI of the brain shows involutional changes of the brain without any acute infarct -Echocardiogram shows an EF of 55 to 60% with mild MR and mild to moderate TR with pulmonary systolic pressures of 45 mmHg and negative bubble study -Speech seems to be somewhat slurred still however confusion makes it difficult to assess and right-sided weakness appears to be improved -Status post tPA on admission 09/30/2021 -Continue PT/OT/speech -Continue aspirin -Continue Plavix -Continue high intensity statin -We will need outpatient neurology follow-up Persistent leukocytosis with hypotension -Patient also with some tachycardia however remains afebrile -Blood pressures are improved with the most recent being 111/74 -I will discontinue midodrine for now as blood pressure seems to be better -Check blood cultures -Check UA Metabolic/toxic encephalopathy -This appears to be new and worsening since admission -Baseline mental status is uncertain at this time however she is taking care of her granddaughter -We will rule out infection with cultures above -Seroquel 50 mg at night -There does appear to be a sundowning component to this and is unclear whether the patient may have some baseline dementia Hypoxia -Patient indicated today she wears 2 L of oxygen at home intermittently -Oxygen levels remained stable on 2 L at this time -Continue to monitor Hyperkalemia -Potassium was low on presentation however now it is increased -Discontinue potassium supplementation -Kayexalate was given last evening and will discontinue again -ABG does not show acidosis -Repeat BMP in a.m. as potassium did trend down some with repeat this afternoon Hypophosphatemia -Repeat phosphate bolus with sodium phosphate today 15 mmol -Repeat Phos in a.m. Macrocytic anemia -Blood counts are stable -No signs of acute blood loss -Check B12 and folate levels CAD -Continue goal-directed therapy including Plavix, aspirin, statin COPD -Continue home inhalers -DuoNeb scheduled GERD -Continue PPI History of breast cancer -Continue anastrozole Osteoporosis -Restart alendronate at discharge Hyperlipidemia -Patient was on 20 mg of statin at baseline this was increased to high intensity dose given the fact she presented with strokelike symptoms DVT prophylaxis -Start subcu Lovenox CODE STATUS -Full code Charges/Coding Visit Charges Inpatient E&M: 39597 Subs Hosp L3
--- NOTE | 2021-10-04 14:11 | CASEMGMT ---
Discharge Forestry Extension Specialist Called the [facility] to see if Sasha was in today. Sasha is out for vacation and Samra is covering. MERISSA is reviewing the referral, Will follow up. Sobia Ngo Discharge Forestry Extension Specialist
--- NOTE | 2021-10-04 14:17 | CASEMGMT ---
GUERDA called patient's daughter Libertad. GUERDA introduced self and role at [facility]. SW explained that Monday patient was in agreement with going somewhere short term for rehab. SW explained her choices were [facility] and then [facility]. GUERDA told Libertad [facility] does not have any beds and a referral was made to [facility]. Libertad said that is fine, but she wants SW to know that patient will not be in agreement with going anywhere for rehab. Patient's adult grandchild has special needs and she will want to get home to her. Patient also wants to smoke so she will want to go home and smoke. Libertad said she, her , and her sister will all be watching over patient. Libertad said she lives [place] of blocks away. Patient does not have a bathroom on the first floor, but she does have a bedside commode. Libertad just wanted to make sure GUERDA was aware patient will not agree to go anywhere. Libertad also wanted SW to know that family will be watching over patient closely. SW let her know SW will keep in touch with her. Amber Paiz MSW DAVID
--- NOTE | 2021-10-04 14:18 | CASEMGMT ---
Discharge Fleet Coordinator Samra called from the [facility]. Patient has been accepted. GUERDA Clark notified. Sobia Ngo Discharge Fleet Coordinator
[2021-10-04 15:51] LABS: Vitamin B12 637 pg/mL (211-911)
--- NOTE | 2021-10-04 17:42 | PCM.RX.CS ---
Consult Pharmacy has been consulted to manage selected antiobiotic: Vancomycin Type of Consult: New start Prior Doses of Antibiotics Received/Current Regimen: Received 750mg iv x 1. Labs: Sodium 138 mmol/L (136-145) 10/04/21 10:25 Potassium 5.9 mmol/L (3.5-5.1) H 10/04/21 10:25 Chloride 114 mmol/L (98-107) H 10/04/21 10:25 Carbon Dioxide 18.0 mmol/L (21.0-32.0) L 10/04/21 10:25 Anion Gap 6 (5-15) 10/04/21 10:25 BUN 5 mg/dL (7-18) L 10/04/21 10:25 Creatinine 0.47 mg/dL (0.55-1.02) L 10/04/21 10:25 Est GFR (MDRD) Af Amer 169 mL/min (>60) 10/04/21 10:25 Est GFR (MDRD) Non-Af 139 mL/min (>60) 10/04/21 10:25 BUN/Creatinine Ratio 10.7 RATIO (10-20) 10/04/21 10:25 Glucose 86 mg/dL (74-106) 10/04/21 10:25 Weight used for dosin.8 kg Estimated Creatinine Clearance: 72ml/min Pharmacy Plan for Drug Dosing: Will begin 750mg iv q12h per protocol.Trough level ordered for ..22 before 4th dose. Pharmacy Service will continue to monitor and adjust dosing as required. Follow-Up Labs: Trough Vancomycin - 6.29.22 @0330 before 0400 dose
[2021-10-04 18:25] LABS: Mucous, Urine 0 SEEN /hpf (<or=2+)
[2021-10-04 18:29] LABS: Color, Urine Straw (Yellow); Glucose, Dipstick Normal (Normal); Ketone-Dipstick 5 mg/dl (Negative); Leukocyte Esterase-Dipstick Negative /ul (Negative); Nitrite-Dipstick Negative (Negative); Occult Blood-Urine Negative /ul (Negative); Protein-Dipstick Negative (Negative); Urine Bilirubin Dipstick Negative (Negative); Urine Clarity Clear (Clear); Urine Urobilinogen Normal (Normal); Urine pH 6.5 (5.0 - 8.0)
[2021-10-04 18:36] LABS: Bacteria 1+ /hpf (None Seen); Red Blood Cells-Urine 0-5 SEEN /hpf (0-5); Squamous Epithelial Cells - UA 0-5 SEEN /hpf (5-10); White Blood Cells 0-5 SEEN /hpf (0-5)
[2021-10-04] MEDS: Ipratropium/Albuterol Sulfate 3 ML AMPUL.NEB INHALATION (19:32)
[2021-10-04] MEDS: QUEtiapine 25 MG Tablet 50 MG PO (20:01)
[2021-10-04] MEDS: Atorvastatin Calcium 80 MG Tablet PO (20:01)
[2021-10-04] MEDS: Pantoprazole Sodium 20 MG Tablet PO (20:01)
[2021-10-04] MEDS: 0.9% Normal Saline 1,000 ML 999 ML IV (21:51)
[2021-10-05] VITALS (8 sets, daily range): BP systolic 85–102; BP diastolic 53–75; PULSE 88–112; RESP 16–28; TEMP 36.3–36.7; O2SAT 90–100; BMI 17.4
[2021-10-05] MEDS: 0.9% Normal Saline 1,000 ML 125 ML IV ×4 (00:05→22:50)
[2021-10-05 05:05] LABS: Absolute Lymphocyte Count 1.05 X10^3/uL (0.83-4.51); Absolute Neutrophil Count 7.9 X10^3/uL (2.0-7.7); Basophil# 0.05 X10^3/uL; Basophil% 0.5 % (0-1); Eosinophil# 0.32 X10^3/uL; Eosinophils% 3.1 % (0-5); Hematocrit 27.9 % (37-47); Lymphocyte # 1.05 X10^3/ul (0.83-4.51); Mean Corp Hgb Conc 32.3 g/dL (32-36); Mean Corpuscular Hgb 36.1 pg (27.0-32.0); Mean Platelet Vol. 9.1 fl (6.2-12.0); Monocyte# 1.15 X10^3/uL; NRBC Flagged by Analyzer 0 % (0-5); Neutrophil # 7.85 X10^3/uL (2.7-7.7); Neutrophil % 74.7 % (47-70); Platelet Count 248 K/mm3 (150-450); RBC Distribution Width CV 12.7 % (11.6-14.6); RBC Distribution Width SD 52.7 fl (35.1-43.9); Red Blood Count 2.49 M/mm3 (4.2-5.4); White Blood Count 10.5 K/mm3 (4.4-11.0)
[2021-10-05] MEDS: Dicyclomine 10 MG Capsule PO ×3 (05:08→17:35)
[2021-10-05] MEDS: Acetaminophen 500 MG Tablet 1000 MG PO ×2 (05:08→21:21)
[2021-10-05 05:45] LABS: Anion Gap 9 (5-15); BUN 5 mg/dL (7-18); BUN/Creat Ratio 13.4 RATIO (10-20); Chloride 111 mmol/L (98-107); Creatinine, Serum 0.37 mg/dL (0.55-1.02); EST Glomerular Filtration Rate 180 mL/min (>60); Est Glom Filt Rate - Afr Amer 218 mL/min (>60); Estimated Creatinine Clearance 43.01 ml/min; Glucose 81 mg/dL (74-106); Magnesium 1.7 mg/dL (1.6-2.6); Phosphorus 2.8 mg/dL (2.5-4.9); Potassium 4.3 mmol/L (3.5-5.1); Sodium Level 140 mmol/L (136-145)
[2021-10-05] MEDS: Ipratropium/Albuterol Sulfate 3 ML AMPUL.NEB INHALATION ×3 (07:02→19:48)
[2021-10-05] MEDS: Midodrine HCl 5 MG Tablet 10 MG PO ×3 (09:07→17:35)
[2021-10-05] MEDS: Anastrozole 1 MG TABLET PO (09:07)
[2021-10-05] MEDS: Enoxaparin 30 MG/0.3 ML Syringe SC (09:11)
[2021-10-05] MEDS: Aspirin E.C. 81 MG Tablet PO (09:11)
[2021-10-05] MEDS: Clopidogrel Bisulfate 75 MG Tablet PO (09:12)
--- NOTE | 2021-10-05 14:45 | PCM.PN.HOSP ---
Subjective Subjective Patient again last night however not as bad as the night previously. No acute issues. Patient remained stable other than her mental status. Per discussion with daughter she does not have any baseline concern for any dementia or memory loss. Again her MRI showed only chronic involutional changes of the brain without any acute infarct. Objective Data Objective Data Vital Signs: Vital Signs Temp Pulse Resp BP Pulse Ox FiO2 97.5 F L 109 H 24 H 93/69 96 2 10/05/21 11:35 10/05/21 12:54 10/05/21 12:54 10/05/21 11:35 10/05/21 11:35 10/01/21 06:11 Oxygen Flow Rate (L/min) 2 Oxygen Delivery Method Nasal Cannula Weight: 51.5 kg Body Mass Index (BMI) 17.4 Intake & Output: Intake and Output for Last 24 Hours 10/03/21 10/04/21 10/05/21 23:59 23:59 23:59 Intake Total 3986.25 / 3986.25 4199.1633 / 4199.1633 1507.08 / 1507.08 Output Total 300 / 300 200 / 200 Balance 3686.25 / 3686.25 3999.1633 / 3999.1633 1507.08 / 1507.08 Lab / Micro Data Result Diagrams: 10/05/21 04:53 10/05/21 04:53 Labs: Laboratory Results - last 24 hr 10/04/21 14:50: Vitamin B12 637 10/04/21 18:10: Urine Color Straw, Urine Clarity Clear, Urine pH 6.5, Ur Specific [place] 1.010, Urine Protein Negative, Urine Glucose (UA) Normal, Urine Ketones 5 H, Urine Occult Blood Negative, Urine Nitrite Negative, Urine Bilirubin Negative, Urine Urobilinogen Normal, Ur Leukocyte Esterase Negative, Urine RBC 0-5 SEEN, Urine WBC 0-5 SEEN, Ur Squamous Epith Cells 0-5 SEEN, Urine Bacteria 1+, Urine Mucus 0 SEEN 10/05/21 04:53: WBC 10.5, RBC 2.49 L, Hgb 9.0 L, Hct 27.9 L, MCV 112.0 H, MCH 36.1 H, MCHC 32.3, RDW Std Deviation 52.7 H, RDW Coeff of Rosa 12.7, Plt Count 248, MPV 9.1, Immature Gran % (Auto) 0.700, Neut % (Auto) 74.7 H, Lymph % (Auto) 10.0 L, [place] % (Auto) 11.0 H, Eos % (Auto) 3.1, Baso % (Auto) 0.5, Absolute Neuts (auto) 7.9 H, Absolute Lymphs (auto) 1.05, Nucleated RBC % 0 10/05/21 04:53: Sodium 140, Potassium 4.3, Chloride 111 H, Carbon Dioxide 20.0 L, Anion Gap 9, BUN 5 L, Creatinine 0.37 L, Estim Creat Clear Calc 43.01, Est GFR (MDRD) Af Amer 218, Est GFR (MDRD) Non-Af 180, BUN/Creatinine Ratio 13.4, Glucose 81, Calcium 8.0 L, Phosphorus 2.8, Magnesium 1.7 Micro: Microbiology 10/04/21 18:10 Urine, Catheterized Urine Culture - Preliminary Culture exhibits no growth. Rhythm Strip Rhythm Strip: Sinus Rhythm Rate: 92 Ectopy: None Physical Exam Const alert and no apparent distress Constitutional Narrative: Thin older white female sitting up in bed but slightly slumped over sleeping, awakens to tactile stimulus and is oriented to self, month and year however she is not oriented to place or [employer], nursing at bedside General Appearance: cooperative Orientation / Consciousness: awake and confused HEENT normocephalic, head/scalp atraumatic, hearing grossly normal bilaterally, moist oral mucous membranes and oropharynx normal HEENT Narrative: Dentition is poor, Mallampati is 2, no thrush Resp normal respiratory effort, no retractions, no use of accessory muscles and clear to auscultation bilaterally Resp Narrative: No wheeze today however lung sounds remained diffusely diminished, patient remains on 0-2 L nasal cannula Auscultation: Negative for crackles, rales, rhonchi or wheezes Cardio regular rate, regular rhythm, S1 normal heart sound, S2 normal heart sound, no murmurs, no rub, no gallops, no clicks and no JVD GI normal to inspection, nondistended, normoactive bowel sounds, soft to palpation, non-tender and non-distended GI Narrative: Thin scaphoid abdomen Extremity normal to inspection and no clubbing, cyanosis or edema Extremity Narrative: Pedal pulses are 1+ bilateral lower extremity Neuro CN's II-XII intact bilaterally, moves all extremities and no focal motor deficits Neuro Narrative: Significant generalized weakness Sensorium / Orientation: awake, alert, oriented to person and oriented to place; Negative for oriented to time Psych Psych Narrative: Currently calm and sleepy however apparently she was intermittently agitated but less violent with staff overnight Assessment & Plan Assessment/Plan (1) TIA (transient ischemic attack): (2) Hypotension: (3) Leukocytosis: (4) Metabolic encephalopathy: (5) Hyperkalemia: (6) Macrocytic anemia: (7) Hypophosphatemia: (8) Severe malnutrition: PLAN: Plan TIA -Patient presented with slurred speech and right-sided weakness -CTA on admission showed mild atherosclerotic plaque in the bilateral cervical carotid arteries without occlusion or significant stenosis as well as hypoplastic/stenotic areas of the V1 and V2 segments of the vertebral artery from C3 to the junction of the subclavian artery on the right -MRI of the brain shows involutional changes of the brain without any acute infarct -Echocardiogram shows an EF of 55 to 60% with mild MR and mild to moderate TR with pulmonary systolic pressures of 45 mmHg and negative bubble study -Speech seems to be somewhat slurred still however confusion makes it difficult to assess and right-sided weakness appears to be improved -Status post tPA on admission 09/30/2021 -Continue PT/OT/speech -Continue aspirin -Continue Plavix -Continue high intensity statin -We will need outpatient neurology follow-up Persistent leukocytosis with hypotension -Leukocytosis has resolved -Continue empiric antibiotics until cultures are finalized -Patient with hypotension again overnight with improved blood pressures this morning -Midodrine reinitiated-continue -Blood cultures are pending -Cultures negative for growth Metabolic/toxic encephalopathy -This appears to be new and worsening since admission -Per daughter at baseline patient has no significant signs of dementia or cognitive impairment -Ultras are pending -Seroquel does not seem to be helpful at this time so we will discontinue as it may be confounding her encephalopathy -MRI shows chronic involutional changes without any signs of acute ischemia -Check TSH -Check ammonia level -ABG was performed yesterday and showed no significant signs of acidosis which would explain her mental status Hypoxia -Patient indicated today she wears 2 L of oxygen at home intermittently -Oxygen levels remained stable on 2 L at this time 93 to 97% -Continue to monitor Hyperkalemia -Resolved Hypophosphatemia -Resolved Macrocytic anemia -Blood counts are stable -No signs of acute blood loss -B12 is normal at 637 -Folate is pending CAD -Continue goal-directed therapy including Plavix, aspirin, statin COPD -Continue home inhalers -DuoNeb scheduled GERD -Continue PPI History of breast cancer -Continue anastrozole Osteoporosis -Restart alendronate at discharge Hyperlipidemia -Patient was on 20 mg of statin at baseline this was increased to high intensity dose given the fact she presented with strokelike symptoms DVT prophylaxis -Continue subcu Lovenox CODE STATUS -Full code Charges/Coding Visit Charges Inpatient E&M: 87234 Subs Hosp L2
[2021-10-05 15:43] LABS: Thyroid Stim Hormone (TSH) 1.85 uIU/mL (0.358-3.74)
--- NOTE | 2021-10-05 17:43 | RAD_ITS ---
STUDY: X-RAY CHEST REASON FOR EXAM: Female, 71 years old. SOB TECHNIQUE: XR Chest 1 View COMPARISON: 09/28/2021 FINDINGS: There are bilateral pleural effusions. There are bilateral infiltrates. Normal size heart. Normal mediastinum and chalo. Normal visualized pulmonary arteries. There is atherosclerotic calcification of the aortic arch with tortuosity. There are diffuse degenerative changes of the visualized thoracic spine. There is degenerative osteoarthritis of the bilateral shoulders. There is no demonstrated abnormality of the visualized soft tissue structures of the upper abdomen. RAD/Chest 1 View (Portable) IMPRESSION: Pulmonary findings appear worse. Electronically Signed: Gato Guerra MD at 19:38 EDT ,
[2021-10-05] MEDS: LORazepam 2 MG/ML Syringe IV (20:22)
[2021-10-05] MEDS: Pantoprazole Sodium 20 MG Tablet PO (20:24)
[2021-10-05] MEDS: Atorvastatin Calcium 80 MG Tablet PO (20:24)
[2021-10-06] VITALS (8 sets, daily range): BP systolic 90–108; BP diastolic 57–79; PULSE 92–110; RESP 16–22; TEMP 36.7–37.3; O2SAT 94–98; BMI 17.4
[2021-10-06 03:55] LABS: Absolute Lymphocyte Count 1.27 X10^3/uL (0.83-4.51); Absolute Neutrophil Count 5.2 X10^3/uL (2.0-7.7); Basophil# 0.04 X10^3/uL; Basophil% 0.5 % (0-1); Eosinophil# 0.39 X10^3/uL; Eosinophils% 4.9 % (0-5); Hematocrit 28.3 % (37-47); Hemoglobin 8.6 g/dL (12.0-15.0); Lymphocyte # 1.27 X10^3/ul (0.83-4.51); Lymphocyte % 15.9 % (19-41); Mean Corp Hgb Conc 30.4 g/dL (32-36); Mean Corpuscular Hgb 36.1 pg (27.0-32.0); Mean Corpuscular Volume 118.9 fL (81-99); Mean Platelet Vol. 9.3 fl (6.2-12.0); Monocyte# 1.02 X10^3/uL; Monocyte% 12.8 % (0-10); NRBC Flagged by Analyzer 0 % (0-5); Neutrophil # 5.22 X10^3/uL (2.7-7.7); Neutrophil % 65.3 % (47-70); Platelet Count 250 K/mm3 (150-450); RBC Distribution Width SD 56.8 fl (35.1-43.9); Red Blood Count 2.38 M/mm3 (4.2-5.4)
[2021-10-06 04:27] LABS: ALB/GLOB Ratio 0.4 RATIO (0.9-2.4); AST(SGOT) 48 U/L (15-37); Alanine Aminotransfer ALT/SGPT 33 U/L (13-56); Albumin, Serum 1.5 g/dL (3.2-5.0); Alkaline Phosphatase 77 U/L (45-117); Anion Gap 8 (5-15); BUN 4 mg/dL (7-18); Calcium,Total 8.2 mg/dL (8.5-10.1); Chloride 113 mmol/L (98-107); EST Glomerular Filtration Rate 167 mL/min (>60); Est Glom Filt Rate - Afr Amer 202 mL/min (>60); Estimated Creatinine Clearance 41.95 ml/min; Globulin 4.2 g/dL (2.2-4.2); Glucose 87 mg/dL (74-106); Potassium 3.7 mmol/L (3.5-5.1); Protein, Total 5.7 g/dL (6.4-8.2); Sodium Level 140 mmol/L (136-145)
[2021-10-06 04:28] LABS: Vancomycin, Trough Level 27.8 ug/mL (5.0-15.0)
[2021-10-06] MEDS: 0.9% Normal Saline 1,000 ML 125 ML IV ×3 (05:49→21:11)
[2021-10-06] MEDS: Acetaminophen 500 MG Tablet 1000 MG PO (06:40)
[2021-10-06] MEDS: Dicyclomine 10 MG Capsule PO ×3 (06:41→16:39)
[2021-10-06] MEDS: Ipratropium/Albuterol Sulfate 3 ML AMPUL.NEB INHALATION ×2 (07:26→21:16)
--- NOTE | 2021-10-06 08:09 | CT_ITS ---
STUDY: CTA CHEST REASON FOR EXAM: Female, 71 years old. Hypoxia and tachycardia RADIATION DOSAGE (If Supplied By Facility): CTDIvol = ( 10.74 ) mGy, DLP = ( 332.50 ) mGycm TECHNIQUE: The examination was performed with the intravenous administration of IV 75mL Isovue-300. Post-processing of the angiographic images was performed, with multiplanar reformation and 3D reconstruction. Individualized dose optimization techniques were used for this CT. COMPARISON: Comparison is made with prior chest radiograph dated 10/05/2021. FINDINGS: Normal enhancement of the main pulmonary artery and right and left pulmonary arteries. Normal enhancement of the bilateral peripheral pulmonary arteries. There is no demonstrated pulmonary embolism. Normal thoracic aorta and visualized great vessels. There is no demonstrated aortic dissection. There are calcifications of the coronary arteries. Normal mediastinum. Normal hilar regions. Normal visualized trachea and bronchi. Hyperinflation. Diffuse emphysematous changes with centrilobular emphysema more prominent in the upper lobes. Bilateral pleural effusions left greater than right. Left lower lobe infiltrate. Increased markings at the right lung base suggestive of atelectasis. Normal chest wall structures. There are degenerative changes of thoracic spine. There is a 2.1 cm x 2.3 cm hypodense nodule in the lateral aspect of the right kidney most likely representing a small cyst. CT/CTA Chest W/WO Contrast IMPRESSION: No evidence of pulmonary embolism. Bilateral pleural effusions left greater than right with left lower lobe infiltrate and patchy infiltrate at the right lung base. Hyperinflation and diffuse emphysematous changes. Electronically Signed: Nicholas Mann MD at 11:06 EDT ,
[2021-10-06] MEDS: Enoxaparin 30 MG/0.3 ML Syringe SC (09:30)
[2021-10-06] MEDS: Midodrine HCl 5 MG Tablet 10 MG PO ×3 (09:31→16:39)
[2021-10-06] MEDS: Anastrozole 1 MG TABLET PO (09:31)
[2021-10-06] MEDS: Aspirin E.C. 81 MG Tablet PO (09:31)
[2021-10-06] MEDS: Clopidogrel Bisulfate 75 MG Tablet PO (09:31)
[2021-10-06] MEDS: Furosemide 20 MG/2 ML VIAL IV (09:37)
--- NOTE | 2021-10-06 11:19 | CASEMGMT ---
Addendum entered by Bronwyn Quintero 10/07/21 11:22: RN BARBIE received call back from [facility] and they are able to accept the patient with start of care for tomorrow. ASUNCION VALENTIN called and updated daughter Libertad regarding HHC setup and home oxygen. Katrin had no further questions or concerns at this time. CM will continue to follow this patient and plan for a safe discharge. Original Note: GUERDA reviewed patient's therapy notes. GUERDA called patient's daughter Libertad. GUERDA went over therapy notes with her indicating patient was a min to mod assist of 2 people. Libertad said they feel they will be able to manage patient at home. They know patient does not want to go to a jail so they will all work together to take care of her. Patient has a bedside commode and 2 walkers. Libertad said if patient is okay with home health then family would be okay also. Libertad asked about a timeline for d/c. GUERDA let her know physician was thinking possibly tomorrow. GUERDA notified physician regarding d/c plan. Sobia d/c medical office assistant instructor will notify Avenue. Amber Paiz MSW DAVID
--- NOTE | 2021-10-06 13:28 | PN.HOSP_ITS ---
Subjective Subjective Better overnight. Patient did receive 1 dose of Ativan at 8 PM but no significant issues after that period of time. I have discussed with nursing to try to avoid pharmacological agents as I think this is causing increased delirium. The patient was adamant that she is not going to nursing facility and wants to go home upon discharge. I extensively discussed with her our concerns about her going home however she was adamant that she is not going to facility and she will be going home at discharge. Case management discussed this with her family and they are agreeable to her going home as she does have some support services at home as well. Objective Data Objective Data Vital Signs: Vital Signs Temp Pulse Resp BP Pulse Ox O2 Del Method O2 Flow Rate 98.0 F 106 H 20 H 92/70 95 Nasal Cannula 2 10/06/21 09:26 10/06/21 09:26 10/06/21 09:26 10/06/21 09:26 10/06/21 09:46 10/06/21 09:30 10/06/21 10:20 FiO2 2 10/01/21 06:11 Oxygen Flow Rate (L/min) 2 Oxygen Delivery Method Nasal Cannula Weight: 51.4 kg Body Mass Index (BMI) 17.4 Intake & Output: Intake and Output for Last 24 Hours 10/04/21 10/05/21 10/06/21 23:59 23:59 23:59 Intake Total 4199.1633 / 4199.1633 4001.66 / 4001.66 1717.92 / 1717.92 Output Total 200 / 200 Balance 3999.1633 / 3999.1633 4001.66 / 4001.66 1717.92 / 1717.92 Lab / Micro Data Result Diagrams: 10/06/21 03:40 10/06/21 03:40 Labs: Laboratory Results - last 24 hr 10/05/21 04:53: TSH 1.85 10/05/21 15:15: Ammonia 23.0 10/06/21 03:40: Vancomycin Trough 27.8 H 10/06/21 03:40: WBC 8.0, RBC 2.38 L, Hgb 8.6 L, Hct 28.3 L, MCV 118.9 H D, MCH 36.1 H, MCHC 30.4 L D, RDW Std Deviation 56.8 H, RDW Coeff of Rosa 13.0, Plt Count 250, MPV 9.3, Immature Gran % (Auto) 0.600, Neut % (Auto) 65.3, Lymph % (Auto) 15.9 L, [place] % (Auto) 12.8 H, Eos % (Auto) 4.9, Baso % (Auto) 0.5, Absolute Neuts (auto) 5.2, Absolute Lymphs (auto) 1.27, Nucleated RBC % 0 10/06/21 03:40: Sodium 140, Potassium 3.7, Chloride 113 H, Carbon Dioxide 19.0 L , Anion Gap 8, BUN 4 L, Creatinine 0.40 L, Estim Creat Clear Calc 41.95, Est GFR (MDRD) Af Amer 202, Est GFR (MDRD) Non-Af 167, BUN/Creatinine Ratio 10.0, Glucose 87, Calcium 8.2 L, Total Bilirubin 0.30, AST 48 H, ALT 33, Alkaline Phosphatase 77, Total Protein 5.7 L, Albumin 1.5 L, Globulin 4.2, Albumin/Globulin Ratio 0.4 L Micro: Microbiology 10/04/21 10:25 Blood Culture (Wb) - Left Hand Blood Culture - Preliminary No growth in 48 hours. 10/04/21 10:20 Blood Culture (Wb) - Anticubital Left Blood Culture - Preliminary No growth in 48 hours. 10/04/21 18:10 Urine, Catheterized Urine Culture - Preliminary Culture exhibits no growth. Radiography Diagnostic Testing: Radiology Impression Chest X-Ray 10/05/21 17:43 IMPRESSION: Pulmonary findings appear worse. Electronically Signed: Gato Guerra MD at 19:38 EDT , Chest CTA 10/06/21 08:09 IMPRESSION: No evidence of pulmonary embolism. Bilateral pleural effusions left greater than right with left lower lobe infiltrate and patchy infiltrate at the right lung base. Hyperinflation and diffuse emphysematous changes. Electronically Signed: Nicholas Mann MD at 11:06 EDT , Rhythm Strip Rhythm Strip: Sinus Rhythm Rate: 92 Ectopy: None Physical Exam Const alert, oriented x3, no apparent distress, average body habitus and healthy appearing Constitutional Narrative: Thin older white female sitting up in bed, therapy services at bedside, patient is awake and alert and oriented x3 for the first time since I evaluated her. General Appearance: cooperative, well kempt and well developed Orientation / Consciousness: awake, oriented to person, oriented to place and or iented to time HEENT normocephalic, head/scalp atraumatic, hearing grossly normal bilaterally, moist oral mucous membranes and oropharynx normal HEENT Narrative: Dentition is poor, Mallampati is 2, no thrush Eyes Eyes Narrative: No scleral icterus Resp normal respiratory effort, no retractions, no use of accessory muscles and clear to auscultation bilaterally Resp Narrative: Diffusely diminished but more diminished at the bases bilaterally left greater than right but otherwise clear Auscultation: Negative for crackles, rales, rhonchi or wheezes Cardio regular rhythm, S1 normal heart sound, S2 normal heart sound, no murmurs, no rub, no gallops, no clicks and no JVD Cardio Narrative: Mild tachycardia GI normal to inspection, nondistended, normoactive bowel sounds, soft to palpation, non-tender and non-distended GI Narrative: Thin scaphoid abdomen Extremity normal to inspection and no clubbing, cyanosis or edema Extremity Narrative: Pedal pulses are 1+ bilateral lower extremity Skin no rashes or lesions noted General Skin Exam: no breakdown Neuro oriented x3, CN's II-XII intact bilaterally, moves all extremities, no focal motor deficits and no sensory deficits noted Neuro Narrative: Significant generalized weakness Sensorium / Orientation: awake, alert, oriented to person and oriented to place; Negative for oriented to time Speech: speech normal Psych affect normal Psych Narrative: Appropriately interactive today and very talkative Assessment & Plan Assessment/Plan (1) TIA (transient ischemic attack): (2) Hypotension: (3) Leukocytosis: (4) Metabolic encephalopathy: (5) Hyperkalemia: (6) Macrocytic anemia: (7) Hypophosphatemia: (8) Severe malnutrition: (9) Hypoxia: PLAN: Plan TIA -Patient presented with slurred speech and right-sided weakness -CTA on admission showed mild atherosclerotic plaque in the bilateral cervical carotid arteries without occlusion or significant stenosis as well as hypoplastic/stenotic areas of the V1 and V2 segments of the vertebral artery from C3 to the junction of the subclavian artery on the right -MRI of the brain shows involutional changes of the brain without any acute infarct -Echocardiogram shows an EF of 55 to 60% with mild MR and mild to moderate TR with pulmonary systolic pressures of 45 mmHg and negative bubble study -Speech seems to be somewhat slurred still however confusion makes it difficult to assess and right-sided weakness appears to be improved -Status post tPA on admission 09/30/2021 -Continue PT/OT/speech -Continue aspirin -Continue Plavix -Continue high intensity statin -We will need outpatient neurology follow-up Persistent leukocytosis with hypotension -Leukocytosis has resolved -Continue empiric antibiotics until cultures are finalized -Patient with hypotension again overnight with improved blood pressures this morning -Midodrine reinitiated-continue -Blood cultures are pending -Cultures negative for growth Metabolic/toxic encephalopathy -This appears to be new and worsening since admission -Per daughter at baseline patient has no significant signs of dementia or cognitive impairment -Ultras are pending -Seroquel does not seem to be helpful at this time so we will discontinue as it may be confounding her encephalopathy -MRI shows chronic involutional changes without any signs of acute ischemia -Check TSH -Check ammonia level -ABG was performed yesterday and showed no significant signs of acidosis which would explain her mental status Hypoxia -Patient is more alert today and now indicates she does not wear oxygen at home but has a home nebulizer so her hypoxia is new -CT of the chest obtained given the fact that she is been tachycardic and hypoxic and shows no pulmonary embolism however does show small bilateral pleural effusions left greater than right with compressive atelectasis and possible infiltrate on the left as well as significant emphysematous changes greater in the apices in the bases -Oxygen levels remained stable on 2 L at this time -Need to ambulate tomorrow to assess for home oxygen needs -Continue to monitor Macrocytic anemia -Blood counts are stable -No signs of acute blood loss -B12 is normal at 637 -Folate is pending CAD -Continue goal-directed therapy including Plavix, aspirin, statin COPD -Continue home inhalers -DuoNeb scheduled GERD -Continue PPI History of breast cancer -Continue anastrozole Osteoporosis -Restart alendronate at discharge Hyperlipidemia -Patient was on 20 mg of statin at baseline this was increased to high intensity dose given the fact she presented with strokelike symptoms DVT prophylaxis -Continue subcu Lovenox CODE STATUS -Full code Charges/Coding Visit Charges Inpatient E&M: 95850 Subs Hosp L2
--- NOTE | 2021-10-06 13:34 | CASEMGMT ---
Per Gabe CROFT, pt plans to go home with family support at discharge. Family is agreeable to HHC if pt is agreeable. This RN CM to room to discuss with pt and pt provided list of HHC/DME providers including quality and resource use data and consistent with the pt's preferred geographic region, medical needs and insurance network. Pt is not sure that she wants HHC at this time. CM to check back with pt. [place] ASUNCION CM
[2021-10-06 15:08] LABS: Folate, RBC (Hct) Test 30.4 % (34.0-46.6)
[2021-10-06 17:41] LABS: Folates, RBC Test 1201 ng/mL (>498)
[2021-10-06] MEDS: Atorvastatin Calcium 80 MG Tablet PO (21:03)
[2021-10-06] MEDS: Pantoprazole Sodium 20 MG Tablet PO (21:03)
[2021-10-07 03:04] VITALS: BP 96/68; PULSE 87; RESP 16; TEMP 36.7; O2SAT 96
[2021-10-07] MEDS: 0.9% Normal Saline 1,000 ML 125 ML IV ×2 (04:57→12:17)
[2021-10-07] MEDS: Dicyclomine 10 MG Capsule PO ×3 (06:54→15:57)
[2021-10-07 07:03] LABS: Absolute Lymphocyte Count 1.33 X10^3/uL (0.83-4.51); Absolute Neutrophil Count 6.1 X10^3/uL (2.0-7.7); Basophil# 0.06 X10^3/uL; Basophil% 0.7 % (0-1); Eosinophils% 4.4 % (0-5); Hematocrit 27.9 % (37-47); Hemoglobin 9.3 g/dL (12.0-15.0); Lymphocyte # 1.33 X10^3/ul (0.83-4.51); Lymphocyte % 14.5 % (19-41); Mean Corp Hgb Conc 33.3 g/dL (32-36); Mean Corpuscular Hgb 36.8 pg (27.0-32.0); Mean Corpuscular Volume 110.3 fL (81-99); Mean Platelet Vol. 9.3 fl (6.2-12.0); Monocyte# 1.19 X10^3/uL; NRBC Flagged by Analyzer 0 % (0-5); Neutrophil # 6.12 X10^3/uL (2.7-7.7); Neutrophil % 66.7 % (47-70); Platelet Count 281 K/mm3 (150-450); RBC Distribution Width CV 12.6 % (11.6-14.6); RBC Distribution Width SD 50.4 fl (35.1-43.9); Red Blood Count 2.53 M/mm3 (4.2-5.4); White Blood Count 9.2 K/mm3 (4.4-11.0)
[2021-10-07] MEDS: Ipratropium/Albuterol Sulfate 3 ML AMPUL.NEB INHALATION ×2 (07:30→13:30)
[2021-10-07 07:32] VITALS: PULSE 94; RESP 20; O2SAT 97
[2021-10-07 07:34] LABS: Anion Gap 7 (5-15); BUN 4 mg/dL (7-18); BUN/Creat Ratio 7.4 RATIO (10-20); Calcium,Total 8.3 mg/dL (8.5-10.1); Chloride 106 mmol/L (98-107); Creatinine, Serum 0.54 mg/dL (0.55-1.02); EST Glomerular Filtration Rate 119 mL/min (>60); Est Glom Filt Rate - Afr Amer 144 mL/min (>60); Estimated Creatinine Clearance 37.31 ml/min; Glucose 82 mg/dL (74-106); Phosphorus 3.1 mg/dL (2.5-4.9); Potassium 2.8 mmol/L (3.5-5.1); Sodium Level 141 mmol/L (136-145)
[2021-10-07 10:19] VITALS: BP 90/72; PULSE 103; RESP 18; TEMP 36.7; O2SAT 87; O2SAT 91; O2SAT 92
[2021-10-07] MEDS: Clopidogrel Bisulfate 75 MG Tablet PO (10:26)
[2021-10-07] MEDS: Aspirin E.C. 81 MG Tablet PO (10:26)
[2021-10-07] MEDS: Anastrozole 1 MG TABLET PO (10:26)
[2021-10-07] MEDS: Enoxaparin 30 MG/0.3 ML Syringe SC (10:26)
[2021-10-07] MEDS: Midodrine HCl 5 MG Tablet 10 MG PO ×3 (10:26→17:29)
[2021-10-07] MEDS: Potassium Chloride Oral Tablet 20 MEQ 60 MEQ PO (10:35)
[2021-10-07] MEDS: Magnesium Sulfate 4gm/100mL 4 GM/100 ML IV.SOLN. IV (10:41)
--- NOTE | 2021-10-07 11:12 | CASEMGMT ---
ASUNCION CM in to discuss discharge planning with patient. Discussed HHC and home oxygen. Patient reviewed list and would like [facility] as her first choice. Patient would like [facility] for DME. Patient will need home oxygen at discharge. ASUNCION VALENTIN will obtain script from hospitalist and send referral. ASUNCION VALENTIN called [facility] and left message with intake. CM will continue to follow this patient and plan for a safe discharge.
--- NOTE | 2021-10-07 11:20 | CASEMGMT ---
RN CM received call back from [facility] and they are able to accept the patient. RN CM call daughter Libertad and upated regarding HHC setup. RN CM also updated daughter regarding new home oxygen setup with [facility]. Libertad voiced understanding and had no further questions or concerns at this time. CM to continue to follow this patient and plan for a safe discharge.
--- NOTE | 2021-10-07 13:15 | DS.PCM_ITS ---
Providers Date of Admission: 09/29/21 Date of Discharge: 10/07/21 Primary Care Physician: Dr. Rachelle Mccullough MD Consultations 09/29/21 13:29 Consult: [employer] Operator / Pulmonary Medicine Routine Consulting Provider: Pulmonary Medicine corky AveryDarfur Reason for Consult: stroke for alteplase EMERGENT Consult: Yes Notified: Yes Date Notified: 09/29/21 Time Notified: 13:29 Method of Notification: Verbal 09/30/21 08:01 Consult: [employer] Machine Operator / Pulmonary Medicine Routine Consulting Provider: Pulmonary Medicine corky Darfur Reason for Consult: hypotension EMERGENT Consult: No Notified: Yes Date Notified: 09/30/21 Time Notified: 06:00 Method of Notification: Verbal Reason For Visit: ACUTE CVA Diagnosis Discharge Diagnosis (1) TIA (transient ischemic attack): Status: Acute Code(s): G45.9 - Transient cerebral ischemic attack, unspecified (2) Hypotension: Status: Acute Code(s): I95.9 - Hypotension, unspecified (3) Leukocytosis: Status: Acute Code(s): D72.829 - Elevated white blood cell count, unspecified (4) Metabolic encephalopathy: Status: Acute Code(s): G93.41 - Metabolic encephalopathy (5) Hyperkalemia: Status: Acute Code(s): E87.5 - Hyperkalemia (6) Macrocytic anemia: Status: Acute Code(s): D53.9 - Nutritional anemia, unspecified (7) Hypophosphatemia: Status: Acute Code(s): E83.39 - Other disorders of phosphorus metabolism (8) Severe malnutrition: Status: Deleted Code(s): E43 - Unspecified severe protein-calorie malnutrition (9) Hypoxia: Status: Acute Code(s): R09.02 - Hypoxemia Plan TIA -Patient presented with slurred speech and right-sided weakness -CTA on admission showed mild atherosclerotic plaque in the bilateral cervical carotid arteries without occlusion or significant stenosis as well as hypoplastic/stenotic areas of the V1 and V2 segments of the vertebral artery from C3 to the junction of the subclavian artery on the right -MRI of the brain shows involutional changes of the brain without any acute infarct -Echocardiogram shows an EF of 55 to 60% with mild MR and mild to moderate TR with pulmonary systolic pressures of 45 mmHg and negative bubble study -Speech seems to be somewhat slurred still however confusion makes it difficult to assess and right-sided weakness appears to be improved -Status post tPA on admission 09/30/2021 -Continue PT/OT/speech -Continue aspirin -Continue Plavix -Continue high intensity statin -We will need outpatient neurology follow-up Persistent leukocytosis with hypotension -Leukocytosis has resolved -Continue empiric antibiotics until cultures are finalized -Patient with hypotension again overnight with improved blood pressures this morning -Midodrine reinitiated-continue -Blood cultures are pending -Cultures negative for growth Metabolic/toxic encephalopathy -This appears to be new and worsening since admission -Per daughter at baseline patient has no significant signs of dementia or cognitive impairment -Ultras are pending -Seroquel does not seem to be helpful at this time so we will discontinue as it may be confounding her encephalopathy -MRI shows chronic involutional changes without any signs of acute ischemia -Check TSH -Check ammonia level -ABG was performed yesterday and showed no significant signs of acidosis which would explain her mental status Hypoxia -Patient is more alert today and now indicates she does not wear oxygen at home but has a home nebulizer so her hypoxia is new -CT of the chest obtained given the fact that she is been tachycardic and hypoxic and shows no pulmonary embolism however does show small bilateral pleural effusions left greater than right with compressive atelectasis and possible infiltrate on the left as well as significant emphysematous changes greater in the apices in the bases -Oxygen levels remained stable on 2 L at this time -Need to ambulate tomorrow to assess for home oxygen needs -Continue to monitor Macrocytic anemia -Blood counts are stable -No signs of acute blood loss -B12 is normal at 637 -Folate is pending CAD -Continue goal-directed therapy including Plavix, aspirin, statin COPD -Continue home inhalers -DuoNeb scheduled GERD -Continue PPI History of breast cancer -Continue anastrozole Osteoporosis -Restart alendronate at discharge Hyperlipidemia -Patient was on 20 mg of statin at baseline this was increased to high intensity dose given the fact she presented with strokelike symptoms DVT prophylaxis -Continue subcu Lovenox CODE STATUS -Full code Medications at Discharge Home Medications aspirin 81 mg tablet,delayed release 81 mg PO DAILY heart health 11/10/16 atorvastatin 20 mg tablet 20 mg PO QHS cholesterol lowering 11/10/16 calcium carbonate 500 mg-vitamin D3 10 mcg (400 unit) chewable tablet (Calcium 500 + D) 1 ea PO DAILY supplement 11/10/16 cholecalciferol (vitamin D3) 25 mcg (1,000 unit) tablet 1,000 unit PO DAILY supplement 11/10/16 clopidogrel 75 mg tablet 75 mg PO QHS heart health 11/10/16 ipratropium 20 mcg-albuterol 100 mcg/actuation mist for inhalation 1 puff inhalation PRN PRN Wheezing 11/10/16 meloxicam 15 mg tablet 15 mg PO DAILY arthritis 11/10/16 omeprazole 20 mg capsule,delayed release 20 mg PO QHS acid reflux 11/10/16 acetaminophen 500 mg tablet (Tylenol Extra Strength) 1,000 mg PO DAILY pain 12/02/16 alendronate 70 mg tablet 70 mg PO QWEEK bone health 12/29/16 budesonide-formoterol HFA 160 mcg-4.5 mcg/actuation aerosol inhaler (Symbicort) 2 puff inhalation BID breathing 06/22/17 anastrozole 1 mg tablet 1 mg PO DAILY hormone therapy 09/29/21 fluticasone 250 mcg-salmeterol 50 mcg/dose blistr powdr for inhalation 1 ea inhalation PRN PRN breathing 09/29/21 amoxicillin 875 mg-potassium clavulanate 125 mg tablet 1 tab PO BID #8 tabs 10/07/21 clopidogrel 75 mg tablet 75 mg PO DAILY #30 tabs 10/07/21 midodrine 5 mg tablet 10 mg PO TIDCM #180 tabs 10/07/21 Hospital Course Operations None Procedures 2-D Echocardiogram and - (CTA chest/MRI brain/CTA head and neck) Summary of Care Provided Minutes Spent on Discharge: 41 Hospital Course: Mrs. Zamora is a 71-year-old white female who presented to the emergency department at [facility] on 09/29/2021 with a chief complaint of acute onset slurred speech and right-sided weakness. The patient had been seen the previous day in the emergency department for generalized weakness but at noon on the day of presentation she started having significant difficulty with forming her words and acute onset right-sided weakness. 911 was called and the patient was transferred to the emergency department as a stroke team. Upon arr ival to the emergency department the patient was afebrile, tachycardic with a heart rate of 105 and hypotensive with a blood pressure of 72/58. The patient was saturating well on room air. Her initial NIH was 7 and the stroke team utilized telemetry stroke services and tPA was recommended. tPA was given the emergency department she was transferred to the ICU for ongoing monitoring. Patient's blood pressures were marginal throughout her hospitalization and she was placed on midodrine for this her pressures did improve with taking the midodrine however were still low normal range. An echocardiogram was performed as part of her stroke work-up and showed an EF of 55 to 60%, normal LV function, mild MR, mild TR, and pulmonary artery hypertension with a pulmonary systolic pressure of 45 mmHg. The MRI of her brain showed involutional changes but no acute infarct and the theory is that her stroke was aborted with tPA. Neurology evaluated the patient and recommended dual antiplatelet therapy with aspirin and Plavix continued atorvastatin high-dose therapy and follow-up as an outpatient with neurology. Work-up for infection was performed with negative blood cultures and normal UA with no indication of infection and a chest x-ray that showed possible left lower lobe infiltrate. She was maintained initially on vancomycin and Zosyn as she did have that leukocytosis upon presentation and required oxygen with exertion however no oxygen at rest at the time of discharge. Once cultures were negative she was weaned to Zosyn and we suspected that the patient had a pneumonia. A CTA was performed since she had persistent tachycardia and hypoxia and this was negative for pulmonary embolism however did show mild bilateral pleural effusions as well as a left lower lobe infiltrate versus atelectasis. She was discharged on Augmentin to complete a 7-day course for oral antibiotics for pneumonia. At 24 hours after her tPA was given she was able to be transferred to the medical floor. While on the medical floor she unfortunately developed some fairly significant delirium and initially medication was tried to subdue this however it was not all that effective and we discontinued all medications and she seemed to clear neurologically. On the day of discharge and the day prior to discharge she was alert and oriented x3 and following commands and performing all tasks independently. She did have some functional decline and rehab was recommended at discharge however the patient adamantly refused stating she would be fine at home. Family was notified and they said they could surprised some support. The patient was advised that rehab is strongly recommended as we were concerned that she could possibly have an event that would lead to rehospitalization or further complication but again she was adamant on going home and insisted she had a walker and a bedside commode at home which she could utilize. The CTA of her chest did not show PE as noted above however showed pretty significant emphysematous changes. The patient continues to smoke and we strongly recommended cessation however she stated this was unlikely. An ambulatory pulse ox was performed prior to discharge and she will require 2 L of oxygen with ambulation. I did instruct her on the dangers of smoking while on oxygen and insisted that she remove her oxygen if she continued to smoke to avoid these complications. She is to follow-up with her primary care physician within 1 to 2 weeks and we have recommended follow-up with outpatient neurology in 1 month or sooner as possible. She was discharged home in stable condition and will have home health care services upon discharge on 10/07/2021. Discharge diagnoses: Stroke/TIA aborted by tPA Leukocytosis-resolved Hypotension and chronic Toxic/metabolic encephalopathy-resolved Hypoxia -Macrocytic anemia CAD COPD GERD History of breast cancer Osteoporosis Hyperlipidemia Physical Exam Const alert, oriented x3, no apparent distress, average body habitus and healthy appearing Constitutional Narrative: Thin older white female sitting up in bed, watching television eating breakfast, appears comfortable nontoxic, appropriately interactive General Appearance: cooperative, comfortable, well kempt and well developed Orientation / Consciousness: awake, oriented to person, oriented to place, oriented to time and confused Nutritional Appearance: cachectic HEENT normocephalic, head/scalp atraumatic, hearing grossly normal bilaterally, moist oral mucous membranes and oropharynx normal HEENT Narrative: Dentition is fair for age, Mallampati 1, no thrush Eyes PERRL, EOMs intact bilaterally and conjunctivae normal Eyes Narrative: No scleral icterus Neck nuchal rigidity, no lymphadenopathy, supple, no JVD, thyroid normal and no carotid bruits Neck Narrative: Trachea midline General: trachea midline Resp normal respiratory effort, no retractions, no use of accessory muscles and clear to auscultation bilaterally Resp Narrative: Diffusely diminished but more diminished at the bases bilaterally left greater than right but otherwise clear Auscultation: Negative for crackles, rales, rhonchi or wheezes Cardio regular rate, regular rhythm, S1 normal heart sound, S2 normal heart sound, no murmurs, no rub, no gallops, no clicks and no JVD GI normal to inspection, nondistended, normoactive bowel sounds, soft to palpation, non-tender and non-distended GI Narrative: Thin scaphoid abdomen Extremity normal to inspection and no clubbing, cyanosis or edema Extremity Narrative: Pedal pulses are 1+ bilateral lower extremity Skin no rashes or lesions noted, no wounds, skin turgor normal and no jaundice Skin Narrative: Skin is extremely thin General Skin Exam: no breakdown Neuro oriented x3, CN's II-XII intact bilaterally, moves all extremities, no focal motor deficits and no sensory deficits noted Neuro Narrative: Significant generalized weakness Sensorium / Orientation: awake, alert, oriented to person and oriented to place; Negative for oriented to time Speech: speech normal Psych affect normal Psych Narrative: Anxious to go home Weight / BMI Weight Weight: 45.8 kg Body Mass Index (BMI) 17.4 ABG / Lab / Microbiology Data Result Diagrams: 10/07/21 06:30 10/07/21 06:30 Laboratory: Laboratory Results - last 24 hr 10/04/21 14:50: RBC Folate Hemolysate 365.0, RBC Folate 1201, Hematocrit 30.4 L 10/07/21 06:30: WBC 9.2, RBC 2.53 L, Hgb 9.3 L, Hct 27.9 L, MCV 110.3 H D, MCH 36.8 H, MCHC 33.3 D, RDW Std Deviation 50.4 H, RDW Coeff of Rosa 12.6, Plt Count 281, MPV 9.3, Immature Gran % (Auto) 0.700, Neut % (Auto) 66.7, Lymph % (Auto) 14.5 L, Gregg % (Auto) 13.0 H, Eos % (Auto) 4.4, Baso % (Auto) 0.7, Absolute Neuts (auto) 6.1, Absolute Lymphs (auto) 1.33, Nucleated RBC % 0 10/07/21 06:30: Sodium 141, Potassium 2.8 L, Chloride 106, Carbon Dioxide 28.0, Anion Gap 7, BUN 4 L, Creatinine 0.54 L, Estim Creat Clear Calc 37.31, Est GFR (MDRD) Af Amer 144, Est GFR (MDRD) Non-Af 119, BUN/Creatinine Ratio 7.4 L, Glucose 82, Calcium 8.3 L, Phosphorus 3.1, Magnesium 1.0 L Microbiology: Microbiology 10/04/21 18:10 Urine, Catheterized Urine Culture - Final Culture exhibits no growth. 10/04/21 10:25 Blood Culture (Wb) - Left Hand Blood Culture - Preliminary No growth in 48 hours. 10/04/21 10:20 Blood Culture (Wb) - Anticubital Left Blood Culture - Preliminary No growth in 48 hours. D/C Instructions Discharge Diet: Low fat / Low cholesterol Discharge Activity: Return to Normal Activity Meaningful Use Info Meaningful Use Diagnoses (Choose all that apply): None applicable and Ischemic CVA CVA Therapy Assessed for PT,OT and/or ST?: Yes Ischemic Stroke Antithrombotic order at d/c?: Yes Dx of Atrial fib/flutter?: No Anticoagulant at discharge?: No Reason anticoagulant not ordered: Treatment not Indicated Statins at discharge?: Yes Primary Dx Acute Ischemic CVA?: Yes IV tPA ordered during stay?: Yes Discharge Plan Admission Admit Date/Time: 09/29/21 14:16 Primary Reason for Your Visit: Slurred speech/right upper extremity weakness Attending Provider: Jinny Marte Primary Care Provider: Rachelle Mcculolugh Consulting Providers: Taqueria Neff ; Gilmer Cruz ; Cynthia Sagastume NP ; Tam Ruelas Discharge Orders/Prescriptions Prescriptions: New clopidogrel 75 mg Tablet 75 mg PO DAILY Qty: 30 2RF midodrine 5 mg Tablet 10 mg PO TIDCM Qty: 180 2RF amoxicillin-pot clavulanate 875-125 mg tablet 1 tab PO BID Qty: 8 0RF Continued atorvastatin 20 MG tablet 20 mg PO QHS Label Comments: CHOLESTEROL meloxicam 15 MG tablet 15 mg PO DAILY Label Comments: ARTHRITIS clopidogrel 75 MG tablet 75 mg PO QHS Label Comments: WAS TOLD TO ASK ABOUT STOPPING,STENTS aspirin 81 MG tablet,delayed release (DR/EC) 81 mg PO DAILY Label Comments: WS TOLD TO ASK ABOUT STOPPING FOR SURGERY omeprazole 20 MG capsule 20 mg PO QHS Label Comments: REFLUX calcium carbonate-vitamin D3 [Calcium 500 + D] 1 EACH tablet,chewable 1 ea PO DAILY cholecalciferol (vitamin D3) 1,000 UNIT tablet 1,000 unit PO DAILY ipratropium-albuterol 1 PUFF inhaler 1 puff INHALATION PRN PRN (Reason: Wheezing) acetaminophen [Tylenol Extra Strength] 500 MG tablet 1,000 mg PO DAILY alendronate 70 MG tablet 70 mg PO QWEEK budesonide-formoterol [Symbicort] 1 INHALER inhaler 2 puff inhalation BID anastrozole 1 mg tablet 1 mg PO DAILY fluticasone propion-salmeterol 250-50 mcg/dose blister with device 1 ea INHALATION PRN PRN (Reason: breathing) Referrals / Follow Up: Rachelle Mccullough MD [Primary Care Provider] - Andres Florez MD [NON-STAFF] - Within 1 Month (call for appt soon after discharge) Disposition Disposition (needs filled in before D/C Order can be placed): Home, Self Care Charges/Coding Visit Charges Inpatient E&M: 52446 Disch Hosp
--- NOTE | 2021-10-07 13:15 | CASEMGMT ---
ASUNCION VALENTIN received scrip for home oxygen and faxed to [employer] at this time. ASUNCION VALENTIN updated nursing and provided e-tank from [employer]. CM will continue to follow this patient and plan for a safe discharge.
[2021-10-07 13:31] VITALS: PULSE 85; RESP 18
[2021-10-07 15:10] LABS: Anion Gap 6 (5-15); BUN 4 mg/dL (7-18); BUN/Creat Ratio 6.7 RATIO (10-20); Calcium,Total 8.5 mg/dL (8.5-10.1); Chloride 107 mmol/L (98-107); Creatinine, Serum 0.59 mg/dL (0.55-1.02); EST Glomerular Filtration Rate 106 mL/min (>60); Est Glom Filt Rate - Afr Amer 128 mL/min (>60); Estimated Creatinine Clearance 37.31 ml/min; Glucose 111 mg/dL (74-106); Magnesium 2.6 mg/dL (1.6-2.6); Potassium 3.4 mmol/L (3.5-5.1); Sodium Level 141 mmol/L (136-145)
[2021-10-07 15:55] VITALS: BP 96/70; PULSE 90; RESP 16; TEMP 36.6; O2SAT 94
[2021-10-07 17:00] VITALS: BMI 17.4
[2021-10-07 17:12] LABS: Magnesium 2.6 mg/dL (1.6-2.6)
[2021-10-07] MEDS: Potassium Chloride Oral Tablet 20 MEQ 40 MEQ PO (17:27)
== END 2021-10-07 17:58 | disposition home or self-care (01) | DRG 61 ==
LOC: ED 13:39 → ICU 14:22 → PCU 09-30 16:57
PROVIDERS: Internal Medicine Critical Care Medicine; Admitting Provider Internal Medicine; Emergency Provider Emergency Medicine; PCP Internal Medicine; Visit Provider Internal Medicine
DX: G45.9 Transient cerebral ischemic attack, unspecified (principal); G93.41 Metabolic encephalopathy; E43 Unspecified severe protein-calorie malnutrition; J18.9 Pneumonia, unspecified organism; J98.11 Atelectasis; E83.39 Other disorders of phosphorus metabolism; F03.90 Unspecified dementia, unspecified severity, without behavioral disturbance, psychotic disturbance, mood disturbance, and anxiety; E87.8 Other disorders of electrolyte and fluid balance, not elsewhere classified; J44.9 Chronic obstructive pulmonary disease, unspecified; I48.91 Unspecified atrial fibrillation; I95.9 Hypotension, unspecified; I25.10 Atherosclerotic heart disease of native coronary artery without angina pectoris; I70.8 Atherosclerosis of other arteries; E87.6 Hypokalemia; F17.210 Nicotine dependence, cigarettes, uncomplicated; K21.9 Gastro-esophageal reflux disease without esophagitis; E78.5 Hyperlipidemia, unspecified; I08.1 Rheumatic disorders of both mitral and tricuspid valves; D72.829 Elevated white blood cell count, unspecified; D53.9 Nutritional anemia, unspecified; E87.5 Hyperkalemia; Z80.3 Family history of malignant neoplasm of breast; Z79.02 Long term (current) use of antithrombotics/antiplatelets; Z79.83 Long term (current) use of bisphosphonates; Z79.82 Long term (current) use of aspirin; R29.701 NIHSS score 1; M81.0 Age-related osteoporosis without current pathological fracture; R09.02 Hypoxemia; Z79.811 Long term (current) use of aromatase inhibitors; Z79.01 Long term (current) use of anticoagulants; Z85.3 Personal history of malignant neoplasm of breast
CPT/HCPCS: 36415; 36600; 51702; 70450; 70496; 70498; 70551; 71045; 71275; 80048; 80053; 80061; 80076; 80202; 81001; 82140; 82607; 82747; 82803; 83540; 83550; 83605; 83735; 84100; 84443; 84484; 85014; 85025; 85610; 85730; 87040; 87086; 87428; 92507; 92522; 92526; 92610; 93005; 93306; 94640; 94762; 97110; 97116; 97162; 97166; 97530; 97535; 97802; 97803; 99251; 99285; 99406; J2997; J7030; J7040; J7050; P9612; Q9967; A4216; G0463; J0610; J1940; J2405

== ENCOUNTER 2021-12-30 05:59 | Inpatient (IN) | payer MEDICARE, SELFPAY ==
[2021-12-30] VITALS (22 sets, daily range): BP systolic 86–120; BP diastolic 63–96; PULSE 92–124; RESP 16–39; TEMP 35.8–37.1; O2SAT 88–98; BMI 16.7; BMI 18.0
--- NOTE | 2021-12-30 06:11 | EKG12_ITS ---
Test Reason : SHORT OF BREATHH Blood Pressure : / mmHG Vent. Rate : 116 BPM Atrial Rate : 116 BPM P-R Int : 118 ms QRS Dur : 074 ms QT Int : 334 ms P-R-T Axes : 043 078 014 degrees QTc Int : 464 ms Sinus tachycardia Nonspecific ST abnormality Abnormal ECG Confirmed by ADRIANA SYLVESTER, ERIK ([id number]), society editor NENITA JEAN ([id number]) on 01/03/2022 9:41:22 AM Referred By: LINDA Confirmed By:ERIK WRIGHT MD
--- NOTE | 2021-12-30 06:12 | EDS_ITS ---
HPI History of Present Illness Chief Complaint: Shortness of Breath Detail of Chief Complaint: Shortness of breath that started around 4 AM today. Informant: patient Narrative Narrative: Patient presents to the emergency department complaint of shortness of breath this around 4 AM. Patient states she really could not sleep well all night. She had a cough last week that she thought may have been COVID as a family member recently had COVID as well. Patient did not test for COVID. Patient has had the COVID-vaccine but not the booster. Patient denies any chest pain currently. She denies any fevers. Patient not currently using home O2. Patient does have history of COPD. No history of PE or DVT. [facility] Medical History (Updated 12/30/21 @ 07:[address] Mer De Paz, ) Anemia COPD (chronic obstructive pulmonary disease) Coronary atherosclerosis GERD (gastroesophageal reflux disease) Heart disease Hypotension Hypoxia IBS (irritable bowel syndrome) Macrocytic anemia Osteoporosis Porphyrin metabolism disorder Smoker Thyroid disease TIA (transient ischemic attack) Tobacco use disorder Home Medications aspirin 81 mg tablet,delayed release 81 mg PO DAILY [facility] 11/10/16 [History Last Taken 09/28/21] atorvastatin 20 mg tablet 20 mg PO QHS cholesterol lowering 11/10/16 [History Last Taken 09/28/21] calcium carbonate 500 mg-vitamin D3 10 mcg (400 unit) chewable tablet (Calcium 500 + D) 1 ea PO DAILY supplement 11/10/16 [History Last Taken 09/28/21] cholecalciferol (vitamin D3) 25 mcg (1,000 unit) tablet 1,000 unit PO DAILY supplement 11/10/16 [History Last Taken 09/28/21] clopidogrel 75 mg tablet 75 mg PO QHS [facility] 11/10/16 [History Last Taken 09/28/21] ipratropium 20 mcg-albuterol 100 mcg/actuation mist for inhalation 1 puff inhalation PRN PRN Wheezing 11/10/16 [History Last Taken Unknown] meloxicam 15 mg tablet 15 mg PO DAILY arthritis 11/10/16 [History Last Taken ] omeprazole 20 mg capsule,delayed release 20 mg PO QHS acid reflux 11/10/16 [History Last Taken 09/28/21] acetaminophen 500 mg tablet (Tylenol Extra Strength) 1,000 mg PO DAILY pain 12/02/16 [History Last Taken Unknown] alendronate 70 mg tablet 70 mg PO QWEEK bone health 12/29/16 [History Last Taken Unknown] budesonide-formoterol HFA 160 mcg-4.5 mcg/actuation aerosol inhaler (Symbicort) 2 puff inhalation BID breathing 06/22/17 [History Last Taken 09/28/21] anastrozole 1 mg tablet 1 mg PO DAILY hormone therapy 09/29/21 [History Last Taken 09/28/21] fluticasone 250 mcg-salmeterol 50 mcg/dose blistr powdr for inhalation 1 ea inhalation PRN PRN breathing 09/29/21 [History Last Taken Unknown] amoxicillin 875 mg-potassium clavulanate 125 mg tablet 1 tab PO BID #8 tabs 10/07/21 [Rx Last Taken Unknown] clopidogrel 75 mg tablet 75 mg PO DAILY #30 tabs 10/07/21 [Rx Last Taken Unknown] midodrine 5 mg tablet 10 mg PO TIDCM #180 tabs 10/07/21 [Rx Last Taken Unknown] Allergy/AdvReac Type Severity Reaction Status Date / Time alendronate sodium AdvReac Severe Unknown Verified 12/30/21 06:06 [From Fosamax] nickel AdvReac Intermediate Rash Verified 12/30/21 06:06 rofecoxib [From Vioxx] AdvReac Intermediate Unknown Verified 12/30/21 06:06 iron AdvReac Mild Other Verified 12/30/21 06:06 Family History Mother Diabetes Arthritis Hypertension Father Anemia Sister Breast cancer Surgical History History of cardiac cath History of section History of coronary artery stent placement History of lumpectomy History of PTCA Social History Smoking Status: Current every day smoker tobacco type: cigarettes ROS ROS ED Review of Systems ROS Unobtainable: other Constitutional Constitutional ED: Reports lethargy; Denies chills, fever(s), sweats or weight loss Eyes Eyes: Denies blurry vision, change in vision or diplopia ENT ENT ED: Denies rhinorrhea or sore throat Cardiovascular Cardiovascular: Denies chest pain, orthopnea or racing heartbeat Respiratory/Chest Respiratory/Chest: Reports cough, dyspnea and dyspnea on exertion; Denies orthopnea or sputum Gastrointestinal Gastrointestinal: Denies abdominal pain, diarrhea, nausea or vomiting Genitourinary Genitourinary ED: Denies dysuria, hematuria or urinary frequency Musculoskeletal Musculoskeletal: Denies arthralgias, back pain, myalgias or neck pain Integumentary Denies abscess, Abrasions or rash Neurologic Neurologic: Denies headache(s) or weakness Psychiatric Psychiatric: Denies anxiety, depression or suicidal thoughts Endocrine Endocrinology: Denies polydipsia, polyphagia or polyuria Hematologic/Lymphatic Hematologic/Lymphatic: Denies easy bleeding, easy bruising or lymphadenopathy Allergic/Immunologic Allergic/Immunologic ED: Denies mouth swelling, tongue swelling or urticaria EXAM Physical Exam Const Vital Signs: 12/30/21 05:59 12/30/21 06:04 12/30/21 06:39 Temperature 98.3 F Temperature Source Temporal Pulse Rate 124 H 114 H Respiratory Rate 39 H 36 H Respiratory Effort Short of Breath Respiratory Pattern Tachypnea Tachypnea Blood Pressure 107/77 Blood Pressure Mean 87 Pulse Ox 88 Oxygen Delivery Method Room Air Room Air Positive well nourished and well developed General Appearance ED: well developed and NAD HEENT Reports TM's clear and moist mucous membranes normocephalic and atraumatic; Negative for trauma or tenderness Tympanic Membrane ED: Yes TM's clear Eyes PERRL and EOMs intact bilaterally General Eye ED: Negative for pale conjunctiva or scleral icterus Neck no lymphadenopathy, supple and no JVD General: Negative for tenderness Chest Wall inspection of chest normal and palpation of chest normal Chest: Negative for tenderness Resp Resp Narrative: Patient was a mild tachypnea. Patient has decreased breath sounds bilaterally with faint expiratory wheezes. No accessory muscle use or retractions. Effort and Inspection: Negative for respiratory distress or pain with movement Auscultation: wheezes and diminished lung sounds; Negative for rhonchi Cardio regular rate, regular rhythm, S1 normal heart sound, S2 normal heart sound and no murmurs Peripheral Pulses: pulses 2+ throughout GI normal to inspection, nondistended, normoactive bowel sounds, soft to palpation, non-tender, non-distended and no masses Back/Spine no CVA tenderness and no thoracic nor lumbar tenderness Extremity normal to inspection General Extremety ED: Negative for edema General Extremity: Negative for edema Neuro oriented x3, CN's II-XII intact bilaterally, no sensory deficits noted and gait normal Sensorium / Orientation: awake, alert, oriented to person, oriented to place and oriented to time Motor Exam: strength 5/5 throughout and strength abnormal Psych mental status grossly normal Skin no rashes or lesions noted and no wounds MDM MDM MDM Narrative Medical decision making narrative: IV line established on arrival. EKG obtained showed a sinus rhythm with a ventricular rate of 98 bpm. Lab work-up showed a slight elevated white count 11.4. D-dimer was 1.09. CTA of chest ordered and results are pending. Patient was given DuoNeb aerosols as well as Solu-Medrol IV. Patient will need admission for her hypoxemia and suspected COPD exacerbation. Care of patient will be turned over to morning physician awaiting CT results of chest to rule out PE. Lab Data Attestation: I reviewed the patient's lab results. Labs: Laboratory Results - last 24 hr 12/30/21 12/30/21 12/30/21 06:15 06:15 06:15 WBC 11.4 H RBC 3.66 L Hgb 13.0 Hct 40.2 MCV 109.8 H MCH 35.5 H MCHC 32.3 RDW Std Deviation 50.1 H RDW Coeff of Rosa 12.3 Plt Count 354 MPV 9.1 Immature Gran % (Auto) 0.900 Neut % (Auto) 67.4 Lymph % (Auto) 20.5 [place] % (Auto) 9.9 Eos % (Auto) 1.0 Baso % (Auto) 0.3 Absolute Neuts (auto) 7.7 Absolute Lymphs (auto) 2.35 Nucleated RBC % 0 Macrocytosis 2+ D-Dimer Quant (PE/DVT) 1.09 H* Sodium 142 Potassium 3.1 L Chloride 104 Carbon Dioxide 29.0 Anion Gap 9 BUN 19 H Creatinine 0.77 Estim Creat Clear Calc 36.09 Est GFR (MDRD) Af Amer 95 Est GFR (MDRD) Non-Af 79 BUN/Creatinine Ratio 24.8 H Glucose 95 Calcium 8.6 Troponin I High Sens 20 EKG Initial EKG: Attestation: I personally reviewed and interpreted this EKG as follows: Interpretation: Sinus Rhythm Comments: Sinus rhythm with a rate of [address] changes. Discharge Plan Dx/Rx/DC Orders Clinical Impression: Acute dyspnea, COPD exacerbation, Acute hypokalemia, Hypoxemia Disposition Disposition: Acute Care Hospital [facility]
[2021-12-30] MEDS: 0.9% Normal Saline 1,000 ML 150 ML IV (06:18)
[2021-12-30] MEDS: MethylPREDNISolone 125 MG/2 ML Vial IV (06:18)
[2021-12-30 06:32] LABS: Absolute Lymphocyte Count 2.35 X10^3/uL (0.83-4.51); Absolute Neutrophil Count 7.7 X10^3/uL (2.0-7.7); Basophil# 0.03 X10^3/uL; Basophil% 0.3 % (0-1); Eosinophil# 0.12 X10^3/uL; Hematocrit 40.2 % (37-47); Lymphocyte # 2.35 X10^3/ul (0.83-4.51); Lymphocyte % 20.5 % (19-41); Mean Corp Hgb Conc 32.3 g/dL (32-36); Mean Corpuscular Hgb 35.5 pg (27.0-32.0); Mean Corpuscular Volume 109.8 fL (81-99); Mean Platelet Vol. 9.1 fl (6.2-12.0); Monocyte# 1.13 X10^3/uL; Monocyte% 9.9 % (0-10); NRBC Flagged by Analyzer 0 % (0-5); Neutrophil # 7.71 X10^3/uL (2.7-7.7); Neutrophil % 67.4 % (47-70); POSITIVE MORPHOLOGY YES; Platelet Count 354 K/mm3 (150-450); RBC Distribution Width CV 12.3 % (11.6-14.6); RBC Distribution Width SD 50.1 fl (35.1-43.9); Red Blood Count 3.66 M/mm3 (4.2-5.4); White Blood Count 11.4 K/mm3 (4.4-11.0)
[2021-12-30 06:35] LABS: Differential Indicated SCAN CRITERIA MET
[2021-12-30] MEDS: Albuterol 2.5 MG/3 ML VIAL.NEB. INHALATION (06:36)
[2021-12-30] MEDS: Ipratropium/Albuterol Sulfate 3 ML AMPUL.NEB INHALATION ×4 (06:36→18:58)
[2021-12-30 06:44] LABS: D-Dimer Quantitative (DVT/PE) 1.09 FEU/ug/m (0.27-0.49)
[2021-12-30 06:46] LABS: Macrocytosis 2+
--- NOTE | 2021-12-30 06:47 | CT_ITS ---
STUDY: CTA CHEST REASON FOR EXAM: Female, 71 years old patient with dyspnea and elevated D-Dimer RADIATION DOSAGE (If Supplied By Facility): CTDIvol = ( 4.52 ) mGy, DLP = ( 147.74 ) mGycm TECHNIQUE: The examination was performed with the intravenous administration of 100 mL of Isovue-370. Post-processing of the angiographic images was performed, with multiplanar reformation and 3D reconstruction. Individualized dose optimization techniques were used for this CT. COMPARISON: CT of the chest dated 10/06/2021. FINDINGS: Cardiac monitoring leads are present. Normal enhancement of the main pulmonary artery and right and left pulmonary arteries. Normal enhancement of the bilateral peripheral pulmonary arteries. There is no demonstrated pulmonary embolism. There is atherosclerotic calcification of the aortic arch with tortuosity. Maximum transverse dimension of the ascending thoracic aorta is 3.4 cm There is no demonstrated aortic dissection. Normal heart and pericardium. There are enlarged precarinal nodes. Normal hilar regions. Normal visualized trachea and bronchi. The lungs are hyper expanded, with flattening of the hemidiaphragms. There are multiple lucencies scattered throughout both lungs probably secondary to centrilobular emphysema. Normal pleura. Normal chest wall structures. There is severe compression of the L2 vertebral body. This is unchanged since previous CT. The thoracic vertebral bodies are generally normal height and alignment. The bones are osteopenic. Respiratory motion artifact mimics rib fractures. Normal visualized upper abdomen. CT/CTA Chest W/WO Contrast IMPRESSION: No CTA demonstrated pulmonary embolism or arterial dissection. Electronically Signed: Yanet Ribera MD at 7:43 EDT Reading Location ID and State: [id number] / , Service support ,
[2021-12-30 06:48] LABS: Anion Gap 9 (5-15); BUN 19 mg/dL (7-18); BUN/Creat Ratio 24.8 RATIO (10-20); Calcium,Total 8.6 mg/dL (8.5-10.1); Chloride 104 mmol/L (98-107); Creatinine, Serum 0.77 mg/dL (0.55-1.02); EST Glomerular Filtration Rate 79 mL/min (>60); Est Glom Filt Rate - Afr Amer 95 mL/min (>60); Estimated Creatinine Clearance 36.09 ml/min; Glucose 95 mg/dL (74-106); Potassium 3.1 mmol/L (3.5-5.1); Sodium Level 142 mmol/L (136-145); Troponin-I HS 20 pg/mL (3.0-54.0)
--- NOTE | 2021-12-30 07:21 | HP.PCM.HOS_ITS ---
[facility] - General General Date of Admission: 12/30/21 Date of Service: 12/30/21 Chief Complaint: Progressive worsening of shortness of breath worst at 5 AM today. Tachycardia and tachypnea. [facility] Narrative MARICEL FLOWERS, is a 71 F with history of COPD, currently smoking a pack per day since teenage 16-year came to ER with sudden worsening of shortness of breath at 4 AM today. She felt mild worsening of shortness of breath, getting short of breath on mild exertion for last 1 week and had to use nebulization twice daily. Shortness of breath progressed to dyspnea at rest. She denies chest pain tightness, pressure, or squeezing sensation. She is feeling anxious. Patient was found hypoxic 88% on room air. She is also tachycardic and tachypneic. Patient's granddaughter lives with her. JOSE MID about a week ago. Patient and her granddaughter both had COVID-vaccine but did not had booster. Patient herself tested negative for rapid antigen. She denies fever chills, sore throat, sinus drainage or postnasal drip. Twelve-lead EKG done in the ER shows sinus tachycardia at 116 bpm. Labs reviewed and discussed in assessment plan. Chest CTA was done as patient with high dimer suspicion of DVT/PE. Patient does not have personal or family history of DVT/PE. Chest CTA was individually reviewed and does not show pulmonary embolism or arterial dissection or consolidation. Lungs are hyperexpanded with flattening of hemidiaphragms, centrilobular emphysema. [facility] Medical History Anemia COPD (chronic obstructive pulmonary disease) Coronary atherosclerosis GERD (gastroesophageal reflux disease) Heart disease Hypotension Hypoxia IBS (irritable bowel syndrome) Macrocytic anemia Osteoporosis Porphyrin metabolism disorder Smoker Thyroid disease TIA (transient ischemic attack) Tobacco use disorder Home Medications aspirin 81 mg tablet,delayed release 81 mg PO DAILY heart health 11/10/16 [History Last Taken 09/28/21] atorvastatin 20 mg tablet 20 mg PO QHS cholesterol lowering 11/10/16 [History Last Taken 09/28/21] calcium carbonate 500 mg-vitamin D3 10 mcg (400 unit) chewable tablet (Calcium 500 + D) 1 ea PO DAILY supplement 11/10/16 [History Last Taken 09/28/21] cholecalciferol (vitamin D3) 25 mcg (1,000 unit) tablet 1,000 unit PO DAILY supplement 11/10/16 [History Last Taken 09/28/21] clopidogrel 75 mg tablet 75 mg PO QHS heart health 11/10/16 [History Last Taken 09/28/21] ipratropium 20 mcg-albuterol 100 mcg/actuation mist for inhalation 1 puff inhalation PRN PRN Wheezing 11/10/16 [History Last Taken Unknown] meloxicam 15 mg tablet 15 mg PO DAILY arthritis 11/10/16 [History Last Taken 09/28/21] omeprazole 20 mg capsule,delayed release 20 mg PO QHS acid reflux 11/10/16 [History Last Taken 09/28/21] acetaminophen 500 mg tablet (Tylenol Extra Strength) 1,000 mg PO DAILY pain 12/02/16 [History Last Taken Unknown] alendronate 70 mg tablet 70 mg PO QWEEK bone health 12/29/16 [History Last Taken Unknown] budesonide-formoterol HFA 160 mcg-4.5 mcg/actuation aerosol inhaler (Symbicort) 2 puff inhalation BID breathing 06/22/17 [History Last Taken 09/28/21] anastrozole 1 mg tablet 1 mg PO DAILY hormone therapy 09/29/21 [History Last Taken 09/28/21] fluticasone 250 mcg-salmeterol 50 mcg/dose blistr powdr for inhalation 1 ea inhalation PRN PRN breathing 09/29/21 [History Last Taken Unknown] amoxicillin 875 mg-potassium clavulanate 125 mg tablet 1 tab PO BID #8 tabs 10/07/21 [Rx Last Taken Unknown] clopidogrel 75 mg tablet 75 mg PO DAILY Check with primary doctor 12/30/21 [History Last Taken Unknown] midodrine 5 mg tablet 10 mg PO TIDCM Check with primary doctor 12/30/21 [History Last Taken Unknown] Allergy/AdvReac Type Severity Reaction Status Date / Time alendronate sodium AdvReac Severe Unknown Verified 12/30/21 06:06 [From Fosamax] nickel AdvReac Intermediate Rash Verified 12/30/21 06:06 rofecoxib [From Vioxx] AdvReac Intermediate Unknown Verified 12/30/21 06:06 iron AdvReac Mild Other Verified 12/30/21 06:06 Family History Mother Diabetes Arthritis Hypertension Father Anemia Sister Breast cancer Surgical History History of cardiac cath History of section History of coronary artery stent placement History of lumpectomy History of PTCA Social History Smoking Status: Current every day smoker tobacco type: cigarettes ROS ROS Narrative Constitutional: Reports fatigue and weakness. No fever HEENT: No acute URI/sinus symptoms reports systems reviewed and no addt'l complaints, except as documented Respiratory/Chest: As described in HPI Gastrointestinal: Denies coffee ground emesis, hematemesis or vomiting. No abdominal pain Genitourinary: Denies burning urination or new urinary tract symptoms Musculoskeletal: Reports chronic joint pain but no limited range of motion Neurologic: Denies seizure-like activity skin: No ulcer. No rash Endocrinology: Reports systems reviewed and no addt'l complaints, except as documented Hematologic/Lymphatic: Reports systems reviewed and no addt'l complaints, except as documented Rest 14 ROS are negative except as mentioned in HPI Vital Signs Vital Signs Vital Signs: 12/30/21 05:59 12/30/21 06:04 12/30/21 06:39 Temperature 98.3 F Temperature Source Temporal Pulse Rate 124 H 114 H Respiratory Rate 39 H 36 H Respiratory Effort Short of Breath Respiratory Pattern Tachypnea Tachypnea Blood Pressure 107/77 Blood Pressure Mean 87 Pulse Ox 88 Oxygen Delivery Method Room Air Room Air Weight Weight: 97 lb 10.636 oz Body Mass Index (BMI) 16.7 Physical Exam Narrative Physical exam General: Alert, Oriented x3, Cooperative, low BMI 16.8 kg/m?. Severe protein calorie malnutrition/pulmonary cachexia. HEENT: Atraumatic, PERRLA, EOMI, Normocephalic Oral: No Gingival or Mucosal Lesions/ Ulcerations Neck: Supple, No JVD, Negative Carotid Bruits Lungs: Air entry severely diminished in in all lung conteh bilaterally. Expiratory rhonchi present. Tachypnea and mild hypoxia. Cardiovascular: Sinus tachycardia, Normal S1, Normal S2, No murmurs Abdomen: Bowel Sounds Present, Soft, Non Tender, Non-Distended : No renal angle tenderness. No suprapubic tenderness. Extremities: No edema, Capillary Refill Less than 3 Seconds Skin: No rashes, No breakdown Musculoskeletal: No Tenderness to Palpation of Joints or Extremities, moderate muscle atrophy of extremities and loss of subcutaneous tissue. Muscle strength 4/5 at major joints of lower extremities Neurological: Cranial nerves II-XII grossly intact, DTR 2+/4 and Symmetrical, Neuro grossly intact Psych/Mental Status: Flat affect, anxious Results Lab / Micro Data Result Diagrams: 12/30/21 06:15 12/30/21 06:15 Labs: Laboratory Results - last 24 hr 12/30/21 06:15: WBC 11.4 H, RBC 3.66 L, Hgb 13.0, Hct 40.2, MCV 109.8 H, MCH 35.5 H, MCHC 32.3, RDW Std Deviation 50.1 H, RDW Coeff of Rosa 12.3, Plt Count 35 4, MPV 9.1, Immature Gran % (Auto) 0.900, Neut % (Auto) 67.4, Lymph % (Auto) 20.5, [place] % (Auto) 9.9, Eos % (Auto) 1.0, Baso % (Auto) 0.3, Absolute Neuts (auto) 7.7, Absolute Lymphs (auto) 2.35, Nucleated RBC % 0, Macrocytosis 2+ 12/30/21 06:15: D-Dimer Quant (PE/DVT) 1.09 H* 12/30/21 06:15: Sodium 142, Potassium 3.1 L, Chloride 104, Carbon Dioxide 29.0, Anion Gap 9, BUN 19 H, Creatinine 0.77, Estim Creat Clear Calc 36.09, Est GFR (MDRD) Af Amer 95, Est GFR (MDRD) Non-Af 79, BUN/Creatinine Ratio 24.8 H, Glucose 95, Calcium 8.6, Troponin I High Sens 20 Micro: Microbiology 12/30/21 06:17 Nasal Secretion SARS-CoV-2 & FLU Antigen (Rapid) - Final Assessment & Plan Assessment/Plan (1) COPD exacerbation: PLAN: Plan This 71-year-old female with history of COPD came to ED with sudden worsening of shortness of breath on the day of admission along with tachycardia tachypnea and mild hypoxia 1. COPD exacerbation exact etiology unclear suspect viral infection: Patient is being admitted on MedSurg floor. Rapid COVID-19 antigen and flu antigen are negative. COVID-19 PCR, respiratory panel and sputum culture ordered. If the patient spikes fever will do blood culture. Started on DuoNeb scheduled, Solu- Medrol, Mucinex D, incentive spirometry and Pep. Chest CTPA individually revi ewed and does not show significant consolidation but significant centrilobular emphysema. PE ruled out. 2. Coronary artery disease, status post stents 10 years ago: Patient had 3 stents. Denies any recent LA, chest pain or angina and currently she does not have chest pressure. Continue patient's home cardiac medications. The patient on aspirin, Plavix, atorvastatin 3. Severe hypomagnesemia, hypokalemia: Patient had hypomagnesemia hypocalcemia and hypophosphatemia during previous admission in September 2021 when she was admitted for TIA. At that time she had hypotension and was started on midodrine continued. Most recent BP 107 systolic. 4. Right female breast on anastrozole, vitamin D and calcium carbonate: Continued. No active issues. CA breast in remission. 5. GERD: On PPI Protonix 40 mg daily. 6. Other comorbidities include osteopenia hypothyroidism and history of porphy brent cutanea tarda: Patient on alendronate continued Living will/advanced directive/end of life care: Patient does not have living will or advanced directive. She does not have designated power of securities attorney for health. After discussion of benefits/risks procedures involved with full code, DNR CC arrest and DNR CC, the patient opted for DNRCC arrest with no intubation Patient does want artificial life support including intubation, tube feed, ventilator and/chest compression, DC shock but seems okay with central venous catheter, vasopressor if needed Total time spent in [id number] encounter in discussion of advanced directive 16 minutes. Microbiology Past 72 Hours 12/30/21 06:17 Nasal Secretion SARS-CoV-2 & FLU Antigen (Rapid) - Final Laboratory Results 12/30/21 06:15: WBC 11.4 H, RBC 3.66 L, Hgb 13.0, Hct 40.2, MCV 109.8 H, MCH 35.5 H, MCHC 32.3, RDW Std Deviation 50.1 H, RDW Coeff of Rosa 12.3, Plt Count 354, MPV 9.1, Immature Gran % (Auto) 0.900, Neut % (Auto) 67.4, Lymph % (Auto) 20.5, [place] % (Auto) 9.9, Eos % (Auto) 1.0, Baso % (Auto) 0.3, Absolute Neuts (auto) 7.7, Absolute Lymphs (auto) 2.35, Nucleated RBC % 0, Macrocytosis 2+ 12/30/21 06:15: D-Dimer Quant (PE/DVT) 1.09 H* 12/30/21 06:15: Sodium 142, Potassium 3.1 L, Chloride 104, Carbon Dioxide 29.0, Anion Gap 9, BUN 19 H, Creatinine 0.77, Estim Creat Clear Calc 36.09, Est GFR ( MDRD) Af Amer 95, Est GFR (MDRD) Non-Af 79, BUN/Creatinine Ratio 24.8 H, Glucose 95, Calcium 8.6, Troponin I High Sens 20 12/30/21 06:15: Phosphorus 2.8, Magnesium 0.3 L*, Total Bilirubin 0.20, Direct Bilirubin 0.07, AST 29, ALT 14, Alkaline Phosphatase 71, Total Protein 8.1, Albumin 3.2, Globulin 4.9 H Charges/Coding Visit Charges Inpatient E&M: 38035 Init Hosp L3 Procedures Hospitalists Procedures: 75758 Advncd Care Plan 30 Min
[2021-12-30] MEDS: Potassium Chloride Oral Tablet 20 MEQ 40 MEQ PO (07:47)
--- NOTE | 2021-12-30 07:56 | ED.RN ---
This RN notified of Magnesium level of 0.3 via [employer].
[2021-12-30 07:58] LABS: AST(SGOT) 29 U/L (15-37); Alanine Aminotransfer ALT/SGPT 14 U/L (13-56); Albumin, Serum 3.2 g/dL (3.2-5.0); Alkaline Phosphatase 71 U/L (45-117); Bilirubin, Direct 0.07 mg/dL (0.00-0.30); Globulin 4.9 g/dL (2.2-4.2); Magnesium 0.3 mg/dL (1.6-2.6); Phosphorus 2.8 mg/dL (2.5-4.9); Protein, Total 8.1 g/dL (6.4-8.2)
[2021-12-30] MEDS: Magnesium Sulfate 4gm/100mL 4 GM/100 ML IV.SOLN. IV (08:35)
[2021-12-30] MEDS: Midodrine HCl 5 MG Tablet 10 MG PO ×3 (09:55→17:45)
[2021-12-30] MEDS: Clopidogrel Bisulfate 75 MG Tablet PO (09:55)
[2021-12-30] MEDS: guaiFENesin/D-Methorphan TAB.SR.12H 1 TABLET PO ×2 (09:55→22:16)
[2021-12-30] MEDS: Aspirin E.C. 81 MG Tablet PO (09:55)
[2021-12-30] MEDS: Anastrozole 1 MG TABLET PO (09:55)
[2021-12-30] MEDS: Azithromycin 250 MG Tablet 500 MG PO (09:55)
[2021-12-30] MEDS: Calcium Carb/Vitamin D 1 TABLET Tablet PO (09:55)
[2021-12-30] MEDS: Cholecalciferol (VIT D3) 25 MCG TABLET (1,000 UNITS) PO (09:56)
[2021-12-30] MEDS: Enoxaparin 40 MG/0.4 ML Syringe SC (09:56)
[2021-12-30] MEDS: 0.9% Saline Lock 10 ML Syringe IV ×2 (13:11→22:16)
[2021-12-30] MEDS: Pantoprazole Sodium 40 MG Tablet PO (22:16)
[2021-12-30] MEDS: Atorvastatin Calcium 20 MG Tablet PO (22:16)
[2021-12-31] VITALS (22 sets, daily range): BP systolic 85–110; BP diastolic 60–78; PULSE 77–108; RESP 18–22; TEMP 36.2–36.6; O2SAT 88–99
[2021-12-31] MEDS: Ipratropium/Albuterol Sulfate 3 ML AMPUL.NEB INHALATION ×4 (01:31→15:01)
[2021-12-31] MEDS: 0.9% Saline Lock 10 ML Syringe IV (06:06)
[2021-12-31 06:28] LABS: Absolute Lymphocyte Count 1.24 X10^3/uL (0.83-4.51); Absolute Neutrophil Count 6.3 X10^3/uL (2.0-7.7); Basophil# 0.02 X10^3/uL; Basophil% 0.2 % (0-1); Hematocrit 36.1 % (37-47); Hemoglobin 11.8 g/dL (12.0-15.0); Lymphocyte # 1.24 X10^3/ul (0.83-4.51); Lymphocyte % 14.5 % (19-41); Mean Corp Hgb Conc 32.7 g/dL (32-36); Mean Corpuscular Hgb 35.4 pg (27.0-32.0); Mean Corpuscular Volume 108.4 fL (81-99); Monocyte# 0.84 X10^3/uL; Monocyte% 9.8 % (0-10); NRBC Flagged by Analyzer 0 % (0-5); Neutrophil # 6.27 X10^3/uL (2.7-7.7); Neutrophil % 73.5 % (47-70); POSITIVE MORPHOLOGY YES; Platelet Count 355 K/mm3 (150-450); RBC Distribution Width CV 12.1 % (11.6-14.6); RBC Distribution Width SD 48.8 fl (35.1-43.9); Red Blood Count 3.33 M/mm3 (4.2-5.4); White Blood Count 8.5 K/mm3 (4.4-11.0)
[2021-12-31 06:33] LABS: Differential Indicated SCAN CRITERIA MET
[2021-12-31 06:52] LABS: Differential Comment SCANNED
[2021-12-31 06:57] LABS: Anion Gap 9 (5-15); BUN 23 mg/dL (7-18); BUN/Creat Ratio 38.6 RATIO (10-20); Calcium,Total 8.3 mg/dL (8.5-10.1); Chloride 108 mmol/L (98-107); EST Glomerular Filtration Rate 105 mL/min (>60); Est Glom Filt Rate - Afr Amer 127 mL/min (>60); Estimated Creatinine Clearance 33.15 ml/min; Glucose 149 mg/dL (74-106); Potassium 4.3 mmol/L (3.5-5.1); Sodium Level 143 mmol/L (136-145)
--- NOTE | 2021-12-31 08:05 | PCM.PN.HOSP ---
Objective Data Objective Data Vital Signs: Vital Signs Temp Pulse Resp BP Pulse Ox O2 Del Method O2 Flow Rate 97.1 F L 104 H 20 H 110/78 95 Nasal Cannula 3 12/31/21 03:31 12/31/21 07:45 12/31/21 07:45 12/31/21 03:31 12/31/21 07:57 12/31/21 07:57 12/31/21 07:57 FiO2 94 12/30/21 14:34 Oxygen Flow Rate (L/min) 3 Oxygen Delivery Method Nasal Cannula Weight: 89 lb 11.65 oz Body Mass Index (BMI) 18.0 Intake & Output: Intake and Output for Last 24 Hours 12/29/21 12/30/21 12/31/21 23:59 23:59 23:59 Intake Total 915 / 915 Balance 915 / 915 Lab / Micro Data Result Diagrams: 12/31/21 05:55 12/31/21 05:55 Labs: Laboratory Results - last 24 hr 12/30/21 10:24: COVID-19 (KEVIN) Not Detected 12/31/21 05:55: WBC 8.5, RBC 3.33 L, Hgb 11.8 L, Hct 36.1 L, MCV 108.4 H, MCH 35.4 H, MCHC 32.7, RDW Std Deviation 48.8 H, RDW Coeff of Rosa 12.1, Plt Count 355, MPV 9.0, Immature Gran % (Auto) 2.000 H, Neut % (Auto) 73.5 H, Lymph % (Auto) 14.5 L, [place] % (Auto) 9.8, Eos % (Auto) 0.0, Baso % (Auto) 0.2, Absolute Neuts (auto) 6.3, Absolute Lymphs (auto) 1.24, Nucleated RBC % 0, Differential Comment SCANNED 12/31/21 05:55: Sodium 143, Potassium 4.3, Chloride 108 H, Carbon Dioxide 26.0, Anion Gap 9, BUN 23 H, Creatinine 0.60, Estim Creat Clear Calc 33.15, Est GFR (MDRD) Af Amer 127, Est GFR (MDRD) Non-Af 105, BUN/Creatinine Ratio 38.6 H, Glucose 149 H, Calcium 8.3 L Micro: Microbiology 12/30/21 10:24 Mucosa - Nasopharyngeal Respiratory Panel (PCR) - Final 12/30/21 06:17 Nasal Secretion SARS-CoV-2 & FLU Antigen (Rapid) - Final
[2021-12-31 08:31] LABS: Phosphorus 2.9 mg/dL (2.5-4.9)
[2021-12-31] MEDS: Cholecalciferol (VIT D3) 25 MCG TABLET (1,000 UNITS) PO (09:48)
[2021-12-31] MEDS: Azithromycin 250 MG Tablet 500 MG PO (09:48)
[2021-12-31] MEDS: Calcium Carb/Vitamin D 1 TABLET Tablet PO (09:48)
[2021-12-31] MEDS: Anastrozole 1 MG TABLET PO (09:49)
[2021-12-31] MEDS: Enoxaparin 40 MG/0.4 ML Syringe SC (09:49)
[2021-12-31] MEDS: Aspirin E.C. 81 MG Tablet PO (09:49)
[2021-12-31] MEDS: guaiFENesin/D-Methorphan TAB.SR.12H 1 TABLET PO (09:49)
[2021-12-31] MEDS: Clopidogrel Bisulfate 75 MG Tablet PO (09:49)
[2021-12-31] MEDS: Midodrine HCl 5 MG Tablet 10 MG PO ×3 (09:49→16:00)
--- NOTE | 2021-12-31 10:34 | DCINST_ITS ---
Discharge Instructions Diet Discharge Diet: No restrictions Activity Discharge Activity: Return to Normal Activity and May Not Drive Weight Bearing Status: Weight bearing as tolerated Dressing / Incision Call your doctor if you observe: Fever of 101 or Higher, Coldness, Increased Pain, Numbness or Tingling, Change in Color, Inability to urinate, Inability to have a bowel movement, Using more than 1 pad per hour, Shortness of breath, Dizziness, Fainting spells, Swelling in the ankles, Chest pain, Prolonged hiccupping, Increased palpitations (irregular heartbeat), Calf discomfort and Uncontrolled pain Follow Up Care Test Results: Test results from this visit will be discussed in further detail at your follow- up appointment, if applicable. Discharge Plan Admission Admit Date/Time: 12/30/21 07:23 Primary Reason for Your Visit: COPD exacerbation with hypoxia Attending Provider: Arnoldo Macias Primary Care Provider: Rachelle Mccullough Discharge Orders/Prescriptions Prescriptions: New azithromycin 250 mg Tablet 500 mg PO Q24 2 Days Qty: 4 0RF sennosides-docusate sodium [Stool Softener-Stimulant Laxat] 8.6-50 mg Tablet 2 tab PO BID PRN PRN (Reason: Constipation) Qty: 0 0RF Rx Instructions: [id number] Mucinex DM 30-600 mg Tablet Extended Release 12 Hr 1 tab PO BID 7 Days Qty: 14 0RF prednisone 20 mg tablet 20 mg PO DAILY Qty: 20 0RF Rx Instructions: 40 mg daily for 3 days, 30 mg for 4 days, 20 mg for 5 days and 10 mg 6 days Continued atorvastatin 20 MG tablet 20 mg PO QHS Label Comments: CHOLESTEROL meloxicam 15 MG tablet 15 mg PO DAILY Label Comments: ARTHRITIS clopidogrel 75 MG tablet 75 mg PO QHS Label Comments: WAS TOLD TO ASK ABOUT STOPPING,STENTS aspirin 81 MG tablet,delayed release (DR/EC) 81 mg PO DAILY Label Comments: WS TOLD TO ASK ABOUT STOPPING FOR SURGERY calcium carbonate-vitamin D3 [Calcium 500 + D] 1 EACH tablet,chewable 1 ea PO DAILY cholecalciferol (vitamin D3) 1,000 UNIT tablet 1,000 unit PO DAILY ipratropium-albuterol 1 PUFF inhaler 1 puff INHALATION PRN PRN (Reason: Wheezing) acetaminophen [Tylenol Extra Strength] 500 MG tablet 1,000 mg PO DAILY alendronate 70 MG tablet 70 mg PO QWEEK budesonide-formoterol [Symbicort] 1 INHALER inhaler 2 puff inhalation BID anastrozole 1 mg tablet 1 mg PO DAILY fluticasone propion-salmeterol 250-50 mcg/dose blister with device 1 ea INHALATION PRN PRN (Reason: breathing) midodrine 5 mg tablet 10 mg PO TIDCM Changed omeprazole 20 MG capsule 40 mg PO QHS Qty: 60 0RF Label Comments: REFLUX Rx Instructions: [id number] Discontinued amoxicillin-pot clavulanate 875-125 mg tablet 1 tab PO BID Qty: 8 0RF clopidogrel 75 mg tablet 75 mg PO DAILY Referrals / Follow Up: Rachelle Mccullough MD [Primary Care Provider] - Within 2 Weeks Gilmer Cruz DO [Med Staff - Active Staff] - Within 1 Month (For PFT. Advanced COPD.) Disposition Disposition (needs filled in before D/C Order can be placed): Home, Self Care
--- NOTE | 2021-12-31 13:10 | CASEMGMT ---
ASUNCION VALENTIN assessment: Face to Face with patient for initial transition planning/care coordination assessment. ASUNCION VALENTIN introduced self and role at [facility], pt voices understanding and consents to assessment. Pt is sitting up in bed in no distress on 2liters nc. Pt is A/Ox4 and answers all questions appropriately.? Care providers, pharmacy,?and demographics verified/updated. ? Presentation: Pt c/o SOB, hx COPD Admitting dx: COPD exac PCP: Sadia Specialists: [facility] cardio Preferred Pharmacy: [facility] Insurance: [facility] Prescription Benefit:? [employer] Living Will/HPOA: Pt does not have LW/HPOA and declines AD info. LNOK: [employer], daughter Living Arrangements: Pt lives with 29yo handicap granddaughter and pt is her guardian. They live in 2 story home and state no concerns at home. Pt states her and granddaughter assist each other. Pt is independent with ADL's. Transportation: Pt drives self or family drives and states no transportation concerns. DME/HHC: Pt has the following DME: WW, rollator, pulse ox, BP cuff, tub bench, grab bars, and nebulizer. Pt states would like [employer], if qualifies for home oxygen as she has had them in the past. Pt states has had [facility] HHC but does not feel need for HHC at discharge. Pt is aware to contact PCP, if needs therapy once home. Pt states no hx of SNF. Pt states no concerns with going home at time of discharge. Pt is retired. Pt voices no further concerns/needs. CM to follow for any further discharge planning/needs. Advised pt to ask for CM if any further questions/concerns/needs arise, voices understanding. Pt Goal: Home Plan: Home, pending home oxygen testing. [place] ASUNCION VALENTIN
--- NOTE | 2021-12-31 13:48 | CASEMGMT ---
Pt qualifies for 3L w/ exertion and had stated preference for [employer]. Order obtained and faxed to [employer]. Pt voices no further questions/concerns/needs. Dimitrios ROLAND CM
--- NOTE | 2021-12-31 15:35 | NURSING ---
This RN is taking over care at this time.
--- NOTE | 2021-12-31 15:41 | DS.PCM_ITS ---
Providers Date of Admission: 12/30/21 Date of Discharge: 12/31/21 Primary Care Physician: Dr. Rachelle Mccullough MD Reason For Visit: COPD EXA Diagnosis Discharge Diagnosis (1) COPD exacerbation: Status: Chronic Code(s): J44.1 - Chronic obstructive pulmonary disease with (acute) exacerbation Medications at Discharge Home Medications aspirin 81 mg tablet,delayed release 81 mg PO DAILY heart health 11/10/16 atorvastatin 20 mg tablet 20 mg PO QHS cholesterol lowering 11/10/16 calcium carbonate 500 mg-vitamin D3 10 mcg (400 unit) chewable tablet (Calcium 500 + D) 1 ea PO DAILY supplement 11/10/16 cholecalciferol (vitamin D3) 25 mcg (1,000 unit) tablet 1,000 unit PO DAILY supplement 11/10/16 clopidogrel 75 mg tablet 75 mg PO QHS [facility] 11/10/16 ipratropium 20 mcg-albuterol 100 mcg/actuation mist for inhalation 1 puff inhalation PRN PRN Wheezing 11/10/16 meloxicam 15 mg tablet 15 mg PO DAILY arthritis 11/10/16 acetaminophen 500 mg tablet (Tylenol Extra Strength) 1,000 mg PO DAILY pain 12/02/16 alendronate 70 mg tablet 70 mg PO QWEEK bone health 12/29/16 budesonide-formoterol HFA 160 mcg-4.5 mcg/actuation aerosol inhaler (Symbicort) 2 puff inhalation BID breathing 06/22/17 anastrozole 1 mg tablet 1 mg PO DAILY hormone therapy 09/29/21 fluticasone 250 mcg-salmeterol 50 mcg/dose blistr powdr for inhalation 1 ea inhalation PRN PRN breathing 09/29/21 midodrine 5 mg tablet 10 mg PO TIDCM blood pressure 12/30/21 azithromycin 250 mg tablet 500 mg PO Q24 2 days #4 tabs 12/31/21 dextromethorphan-guaifenesin 30 mg-600 mg tablet extended hr (Mucinex DM) 1 tab PO BID 7 days #14 tabs 12/31/21 omeprazole 20 mg capsule,delayed release 40 mg PO QHS acid reflux #60 caps 12/31/21 prednisone 20 mg tablet 20 mg PO DAILY #20 tabs 12/31/21 sennosides 8.6 mg-docusate sodium 50 mg tablet (Stool Softener-Stimulant Laxative) 2 tab PO BID PRN PRN Constipation #0 tabs 12/31/21 Hospital Course Summary of Care Provided Hospital Course: This 71-year-old female with history of COPD came to ED with sudden worsening of shortness of breath on the day of admission along with tachycardia tachypnea and mild hypoxia 1. COPD exacerbation exact etiology unclear suspect viral infection: [facility] Rapid COVID-19 antigen and flu antigen are neg ative. COVID-19 PCR, respiratory panel and sputum culture ordered. If the patient spikes fever will do blood culture. Started on DuoNeb scheduled, Solu- Medrol, Mucinex D, incentive spirometry and Pep. Chest CTPA individually reviewed and does not show significant consolidation but significant ce ntrilobular emphysema. PE ruled out. 12/31: Patient shortness of breath is better. Respiratory panel negative. Pulse ox 89% at rest on room air, 88%. 95% on 2 L of oxygen at rest, 92% on 3 L of oxygen ambulating. Patient was advised to stay 1 more day to get better control of exacerbation but she refused and wants to go as she has to take care of her granddaughter. She still smokes 1 pack/day, stated she cut down from 2 packs/day. Patient is discharged on prolonged tapering course of prednisone and azithromycin to complete a total of 4 days. 2. Coronary artery disease, status post stents 10 years ago: Patient had 3 stents. Denies any recent RI, chest pain or angina and currently she does not have chest pressure. Continue patient's home cardiac medications. The patient on aspirin, Plavix, atorvastatin 3. Severe hypomagnesemia, hypokalemia: Patient had hypomagnesemia hypocalcemia and hypophosphatemia during previous admission in September 2021 when she was admitted for TIA. At that time she had hypotension and was started on midodrine continued. Most recent BP 107 systolic. 12/31: Repeat magnesium is 2.0, phosphorus 2.9. Potassium 4.3. 4. Right female breast on anastrozole, vitamin D and calcium carbonate: Continued. No active issues. CA breast in remission. 5. GERD: On PPI Protonix 40 mg daily. 6. Other comorbidities include osteopenia hypothyroidism and history of porphyria cutanea tarda: Patient on alendronate continued Discharge medication reconciliation done. Discharge follow-up instructions completed. Discharge process discussed with the patient and all questions were answered to patient's satisfaction. Total time spent, exact 35 minutes on discharge meds reconciliation, examination, coordination of care with nurses and ancillary staff, review of imaging and blood test and discussion with the patient on follow-up instructions. Living will/advanced directive/end of life care: Patient does not have living will or advanced directive. She does not have designated power of document review attorney for health. After discussion of benefits/risks procedures involved with full code, DNR CC arrest and DNR CC, the patient opted for DNRCC arrest with no intubation Patient does want artificial life support including intubation, tube feed, ventilator and/chest compression, DC shock but seems okay with central venous catheter, vasopressor if needed Total time spent in [id number] encounter in discussion of advanced directive 16 minutes. Microbiology Past 72 Hours 12/30/21 10:24 Mucosa - Nasopharyngeal Respiratory Panel (PCR) - Final 12/30/21 06:17 Nasal Secretion SARS-CoV-2 & FLU Antigen (Rapid) - Final Laboratory Results 12/31/21 05:55: WBC 8.5, RBC 3.33 L, Hgb 11.8 L, Hct 36.1 L, MCV 108.4 H, MCH 35.4 H, MCHC 32.7, RDW Std Deviation 48.8 H, RDW Coeff of Rosa 12.1, Plt Count 355, MPV 9.0, Immature Gran % (Auto) 2.000 H, Neut % (Auto) 73.5 H, Lymph % (Auto) 14.5 L, [place] % (Auto) 9.8, Eos % (Auto) 0.0, Baso % (Auto) 0.2, Absolute Neuts (auto) 6.3, Absolute Lymphs (auto) 1.24, Nucleated RBC % 0, Differential Comment SCANNED 12/31/21 05:55: Sodium 143, Potassium 4.3, Chloride 108 H, Carbon Dioxide 26.0, Anion Gap 9, BUN 23 H, Creatinine 0.60, Estim Creat Clear Calc 33.15, Est GFR (MDRD) Af Amer 127, Est GFR (MDRD) Non-Af 105, BUN/Creatinine Ratio 38.6 H, Glucose 149 H, Calcium 8.3 L 12/31/21 05:55: Phosphorus 2.9, Magnesium 2.0 Physical Exam Narrative General: Alert, Oriented x3, Cooperative, low BMI 16.8 kg/m?.? Severe protein calorie malnutrition HEENT: Atraumatic, PERRLA, EOMI, Normocephalic Oral: No Gingival or Mucosal Lesions/ Ulcerations Neck: Supple, No JVD, Negative Carotid Bruits Lungs:? Air entry severely diminished in in all lung conteh bilaterally.? Expiratory rhonchi present.? Tachypnea resolved. Mild hypoxia. Cardiovascular: Sinus tachycardia, Normal S1, Normal S2, No murmurs Abdomen: Bowel Sounds Present, Soft, Non Tender, Non-Distended : No renal angle tenderness.? No suprapubic tenderness. Extremities: No edema, Capillary Refill Less than 3 Seconds Skin: No rashes, No breakdown Musculoskeletal: No Tenderness to Palpation of Joints or Extremities, moderate muscle atrophy of extremities and loss of subcutaneous tissue.? Muscle strength 4/5 at major joints of lower extremities Neurological: Cranial nerves II-XII grossly intact, DTR? 2+/4 and Symmetrical, Neuro grossly intact Psych/Mental Status: Flat affect, anxious Weight / BMI Weight Weight: 89 lb 11.65 oz Body Mass Index (BMI) 18.0 ABG / Lab / Microbiology Data Result Diagrams: 12/31/21 05:55 12/31/21 05:55 Laboratory: Laboratory Results - last 24 hr 12/30/21 10:24: COVID-19 (KEVIN) Not Detected 12/31/21 05:55: WBC 8.5, RBC 3.33 L, Hgb 11.8 L, Hct 36.1 L, MCV 108.4 H, MCH 35.4 H, MCHC 32.7, RDW Std Deviation 48.8 H, RDW Coeff of Rosa 12.1, Plt Count 355, MPV 9.0, Immature Gran % (Auto) 2.000 H, Neut % (Auto) 73.5 H, Lymph % (Auto) 14.5 L, [place] % (Auto) 9.8, Eos % (Auto) 0.0, Baso % (Auto) 0.2, Absolute Neuts (auto) 6.3, Absolute Lymphs (auto) 1.24, Nucleated RBC % 0, Differential Comment SCANNED 12/31/21 05:55: Sodium 143, Potassium 4.3, Chloride 108 H, Carbon Dioxide 26.0, Anion Gap 9, BUN 23 H, Creatinine 0.60, Estim Creat Clear Calc 33.15, Est GFR (MDRD) Af Amer 127, Est GFR (MDRD) Non-Af 105, BUN/Creatinine Ratio 38.6 H, Glucose 149 H, Calcium 8.3 L 12/31/21 05:55: Phosphorus 2.9, Magnesium 2.0 Microbiology: Microbiology 12/30/21 10:24 Mucosa - Nasopharyngeal Respiratory Panel (PCR) - Final 12/30/21 06:17 Nasal Secretion SARS-CoV-2 & FLU Antigen (Rapid) - Final D/C Instructions Discharge Diet: No restrictions Weight Bearing Status: Weight bearing as tolerated Call your doctor if you observe: Fever of 101 or Higher, Coldness, Increased Pain, Numbness or Tingling, Change in Color, Inability to urinate, Inability to have a bowel movement, Using more than 1 pad per hour, Shortness of breath, Dizziness, Fainting spells, Swelling in the ankles, Chest pain, Prolonged hiccupping, Increased palpitations (irregular heartbeat), Calf discomfort and Uncontrolled pain Meaningful Use Info Meaningful Use Diagnoses (Choose all that apply): None applicable Discharge Plan Admission Admit Date/Time: 12/30/21 07:23 Primary Reason for Your Visit: COPD exacerbation with hypoxia Attending Provider: Arnoldo Macias Primary Care Provider: Rachelle Mccullough Discharge Orders/Prescriptions Prescriptions: New azithromycin 250 mg Tablet 500 mg PO Q24 2 Days Qty: 4 0RF sennosides-docusate sodium [Stool Softener-Stimulant Laxat] 8.6-50 mg Tablet 2 tab PO BID PRN PRN (Reason: Constipation) Qty: 0 0RF Rx Instructions: [id number] Mucinex DM 30-600 mg Tablet Extended Release 12 Hr 1 tab PO BID 7 Days Qty: 14 0RF prednisone 20 mg tablet 20 mg PO DAILY Qty: 20 0RF Rx Instructions: 40 mg daily for 3 days, 30 mg for 4 days, 20 mg for 5 days and 10 mg 6 days Continued atorvastatin 20 MG tablet 20 mg PO QHS Label Comments: CHOLESTEROL meloxicam 15 MG tablet 15 mg PO DAILY Label Comments: ARTHRITIS clopidogrel 75 MG tablet 75 mg PO QHS Label Comments: WAS TOLD TO ASK ABOUT STOPPING,STENTS aspirin 81 MG tablet,delayed release (DR/EC) 81 mg PO DAILY Label Comments: WS TOLD TO ASK ABOUT STOPPING FOR SURGERY calcium carbonate-vitamin D3 [Calcium 500 + D] 1 EACH tablet,chewable 1 ea PO DAILY cholecalciferol (vitamin D3) 1,000 UNIT tablet 1,000 unit PO DAILY ipratropium-albuterol 1 PUFF inhaler 1 puff INHALATION PRN PRN (Reason: Wheezing) acetaminophen [Tylenol Extra Strength] 500 MG tablet 1,000 mg PO DAILY alendronate 70 MG tablet 70 mg PO QWEEK budesonide-formoterol [Symbicort] 1 INHALER inhaler 2 puff inhalation BID anastrozole 1 mg tablet 1 mg PO DAILY fluticasone propion-salmeterol 250-50 mcg/dose blister with device 1 ea INHALATION PRN PRN (Reason: breathing) midodrine 5 mg tablet 10 mg PO TIDCM Changed omeprazole 20 MG capsule 40 mg PO QHS Qty: 60 0RF Label Comments: REFLUX Rx Instructions: [id number] Discontinued amoxicillin-pot clavulanate 875-125 mg tablet 1 tab PO BID Qty: 8 0RF clopidogrel 75 mg tablet 75 mg PO DAILY Referrals / Follow Up: Rachelle Mccullough MD [Primary Care Provider] - Within 2 Weeks Gilmer Cruz DO [Med Staff - Active Staff] - Within 1 Month (For PFT. Advanced COPD.) Disposition Disposition (needs filled in before D/C Order can be placed): Home, Self Care Charges/Coding Addendum Addendum: Patient was admitted as inpatient for COPD exacerbation with continued smoking but was discharged because of faster recovery than expected but patient was stressed told to stay 1 more day but she refused. The recovery was sooner than expected at time of admission. Visit Charges Inpatient E&M: 51026 Disch Hosp
== END 2021-12-31 17:40 | disposition home or self-care (01) | DRG 192 ==
LOC: ED 07:06 → PCU 07:59
PROVIDERS: Admitting Provider Internal Medicine; Emergency Provider Emergency Medicine; PCP Internal Medicine; Visit Provider Internal Medicine
DX: J44.1 Chronic obstructive pulmonary disease with (acute) exacerbation (principal); B34.9 Viral infection, unspecified; E07.9 Disorder of thyroid, unspecified; F17.210 Nicotine dependence, cigarettes, uncomplicated; I25.10 Atherosclerotic heart disease of native coronary artery without angina pectoris; E87.6 Hypokalemia; E83.42 Hypomagnesemia; K21.9 Gastro-esophageal reflux disease without esophagitis; Z23 Encounter for immunization; Z79.02 Long term (current) use of antithrombotics/antiplatelets; Z79.83 Long term (current) use of bisphosphonates; Z79.82 Long term (current) use of aspirin; Z66 Do not resuscitate; R09.02 Hypoxemia; Z51.5 Encounter for palliative care; Z85.3 Personal history of malignant neoplasm of breast; Z95.5 Presence of coronary angioplasty implant and graft
CPT/HCPCS: 36415; 71275; 80048; 80076; 83735; 84100; 84484; 85025; 85379; 87040; 87428; 87633; 87635; 93005; 94640; 94667; 97116; 97162; 97166; 97530; 97535; 99285; 99406; G0008; J7030; J7050; Q9967; 90686; A4216; U0003; U0005

== ENCOUNTER → 2022-03-23 | Outpatient (CLI) | payer MEDICARE, SELFPAY ==
--- NOTE | 2022-03-24 08:08 | PFT ---
INTRODUCTION: The patient is a 72-year-old female that presents for pulmonary function studies secondary to a diagnosis of COPD. Respiratory therapy reported good patient effort. Bronchodilators were used during testing. INTERPRETATION: Forced expiration spirometry demonstrates the presence of a moderate large airways obstructive ventilatory defect. There was no significant response to aerosolized bronchodilators. Spirograms are of good quality but do not plateau indicating slow emptying of the lungs. Body plethysmography was performed and revealed lung volumes to be within normal limits. Diffusing capacity by single breath CO was reduced to 56% of predicted. IMPRESSION: Irreversible moderate large airways obstructive ventilatory defect with symmetric reduction in diffusing capacity.
== END | disposition home or self-care (01) ==
LOC: PSN 10:32
PROVIDERS: PCP Internal Medicine; Referring Provider Internal Medicine Critical Care Medicine; Visit Provider Internal Medicine Critical Care Medicine
DX: J44.9 Chronic obstructive pulmonary disease, unspecified (principal)
CPT/HCPCS: 94060; 94726; 94729

== ENCOUNTER → 2022-03-30 | Outpatient (CLI) | payer MEDICARE, SELFPAY ==
[2022-03-30 12:32] VITALS: PULSE 100; PULSE 103; PULSE 108; PULSE 110; PULSE 113; PULSE 114; PULSE 117; PULSE 87; O2SAT 91; O2SAT 94; O2SAT 95; O2SAT 96; O2SAT 97; O2SAT 98
--- NOTE | 2022-03-30 15:59 | PCM.PSN.6M ---
PSN 6 Minute Walk Test 6 Minute Walk Test 6 Minute Walk Test: 6 Minute Walk Test PSN:6-Minute Walk Test Start: 03/30/22 12:31 Freq: Status: Active Protocol: [id number].6MINW Document 03/30/22 12:32 [facility] (Rec: 03/30/22 12:34 [facility] [id number]) 6 Minute Walk Test Date Performed 03/30/22 Time Performed 12:30 Height 5 ft 4 in Weight: 46.72 kg Weight in Pounds 103.[address]: Dr Cruz Assistive device used: Walker Pre-test Oxygen Delivery Method Room Air Pulse Ox (%) 96 Pulse Rate (60-100 beats/min) 103 H Dyspnea Jarred Scale (0-10) 0 Exertion Jarred Scale (6-20) 6 1st minute Oxygen Delivery Method Room Air Pulse Ox (%) 96 Pulse Rate (60-100 beats/min) 100 2nd minute Oxygen Delivery Method Room Air Pulse Ox (%) 98 Pulse Rate (60-100 beats/min) 87 3rd minute Oxygen Delivery Method Room Air Pulse Ox (%) 97 Pulse Rate (60-100 beats/min) 114 H 4th minute Oxygen Delivery Method Room Air Pulse Ox (%) 98 Pulse Rate (60-100 beats/min) 113 H 5th minute Oxygen Delivery Method Room Air Pulse Ox (%) 91 Pulse Rate (60-100 beats/min) 117 H 6th minute Oxygen Delivery Method Room Air Pulse Ox (%) 95 Pulse Rate (60-100 beats/min) 108 H Dyspnea Jarred Scale (0-10) 0 Exertion Jarred Scale (6-20) 12 Post-test Oxygen Delivery Method Room Air Pulse Ox (%) 94 Pulse Rate (60-100 beats/min) 110 H Full Laps Walked 9 Partial Lap, Number of Tiles Walked 38 Total Distance Walked (ft) 569 Interpretation Interpretation: The patient was able to ambulate only 569 feet over the course of 6 minutes on room air with the assistance of a walker and no breaks. The patient did experience significant tachycardia as high as 117 bpm and significant desaturation from a baseline of 96% to as low as 91%. These findings are consistent with a cardiovascular limitation exercise tolerance. Recommendations Recommendations: No supplemental oxygen is indicated at this time. However, patient will need to be followed closely given level of desaturation.
== END | disposition home or self-care (01) ==
LOC: PSN 12:01
PROVIDERS: PCP Internal Medicine; Referring Provider Internal Medicine Critical Care Medicine; Visit Provider Internal Medicine Critical Care Medicine
DX: J44.9 Chronic obstructive pulmonary disease, unspecified (principal)
CPT/HCPCS: 94618

== ENCOUNTER 2022-05-19 15:31 | Inpatient (IN) | payer MEDICARE, SELFPAY ==
[2022-05-19 15:33] VITALS: BP 88/70; PULSE 116; RESP 16; TEMP 36.4; O2SAT 96; BMI 39.6
--- NOTE | 2022-05-19 16:59 | CT_ITS ---
INDICATION: mass R mandible, tender EXAMINATION: CT NECK WITH CONTRAST - CT Soft Tissue Neck W/ Contrast Injection TECHNIQUE: Helically acquired images were obtained of the neck following IV contrast. A radiation dose optimization technique was used for this scan. IV Contrast dosage and agent: 100 cc [id number]-300 COMPARISON: None. FINDINGS: NASOPHARYNX: Unremarkable. SUPRAHYOID NECK: Peripherally enhancing collection about the right angle of the mandible containing gas bubbles. Collection measures 3.9 x 3.8 x 3.0 cm. INFRAHYOID NECK: Unremarkable larynx, hypopharynx, and supraglottis. THYROID: No focal lesions. SALIVARY GLANDS: Unremarkable. LYMPH NODES: No cervical or supraclavicular lymphadenopathy. VASCULAR STRUCTURES: Atherosclerotic calcifications. Right subclavian artery stent graft. VISUALIZED PORTIONS OF THE ORBITS, PARANASAL SINUSES, MASTOID AIR CELLS AND SKULL BASE: Unremarkable. BONES: Degenerative changes. Dental caries with multiple periodontal osseous erosions involving the mandible and alveolar ridge bilaterally. THORACIC INLET: Emphysematous changes. CT/Soft Tissue Neck WITH Contrast IMPRESSION: Right perimandibular abscess collection. Poor dentition with multiple periodontal osseous erosions possible source. Electronically Signed: Sharath Castañeda MD at 19:06 EST Reading Location ID and State: [address] [place] [address] Tel , Service support ,
--- NOTE | 2022-05-19 17:03 | EX.ED.DYSGE1 ---
HPI History of Present Illness Chief Complaint: Weakness Informant: patient Onset/Context/Timing Onset: Month(s) (8-9) Context: Gradual Onset Narrative Narrative: Patient is brought in by family because of weakness now to the point where she cannot walk, malnutrition and not eating, drinking very little, and a sore mass on her right jaw all of which has been an issue for 8-9 months. States that she saw her PCP yesterday and had simple x-rays of her face/neck, but she has had no CT or biopsy. [facility] Medical History Anemia COPD (chronic obstructive pulmonary disease) Coronary atherosclerosis GERD (gastroesophageal reflux disease) Heart disease Hypotension Hypoxemia Hypoxia IBS (irritable bowel syndrome) Macrocytic anemia Osteoporosis Porphyrin metabolism disorder Smoker Thyroid disease TIA (transient ischemic attack) Tobacco use disorder Home Medications aspirin 81 mg tablet,delayed release 81 mg PO DAILY heart health 11/10/16 [History Last Taken 09/28/21] atorvastatin 20 mg tablet 20 mg PO QHS cholesterol lowering 11/10/16 [History Last Taken 09/28/21] clopidogrel 75 mg tablet 75 mg PO QHS heart health 11/10/16 [History Last Taken 09/28/21] ipratropium 20 mcg-albuterol 100 mcg/actuation mist for inhalation 1 puff inhalation PRN PRN Wheezing 11/10/16 [History Last Taken Unknown] meloxicam 15 mg tablet 15 mg PO DAILY arthritis 11/10/16 [History Last Taken 09/28/21] acetaminophen 500 mg tablet (Tylenol Extra Strength) 1,000 mg PO DAILY pain 12/02/16 [History Last Taken Unknown] alendronate 70 mg tablet 70 mg PO QWEEK bone health 12/29/16 [History Last Taken Unknown] anastrozole 1 mg tablet 1 mg PO DAILY hormone therapy 09/29/21 [History Last Taken 09/28/21] fluticasone 250 mcg-salmeterol 50 mcg/dose blistr powdr for inhalation 1 ea inhalation PRN PRN breathing 09/29/21 [History Last Taken Unknown] midodrine 5 mg tablet 10 mg PO TIDCM blood pressure 12/30/21 [History Last Taken Unknown] omeprazole 20 mg capsule,delayed release 20 mg PO QHS acid reflux 02/22/22 [History Last Taken Unknown] albuterol sulfate 90 mcg/actuation aerosol inhaler (Ventolin HFA) 2 puff inhalation Q4H PRN shortness of breath or wheezing #18 grams 04/06/22 [Rx Last Taken Unknown] Allergy/AdvReac Type Severity Reaction Status Date / Time alendronate sodium AdvReac Severe Unknown Verified 02/22/22 10:49 [From Fosamax] nickel AdvReac Intermediate Rash Verified 02/22/22 10:49 rofecoxib [From Vioxx] AdvReac Intermediate Unknown Verified 02/22/22 10:49 iron AdvReac Mild Other Verified 02/22/22 10:49 Family History Mother Diabetes Arthritis Hypertension Father Anemia Sister Breast cancer Surgical History History of cardiac cath History of section History of coronary artery stent placement History of lumpectomy History of PTCA Social History Smoking Status: Current every day smoker tobacco type: cigarettes ROS ROS ED Constitutional Constitutional ED: Reports fatigue, poor appetite, weakness and weight loss; Denies chills or fever(s) Eyes Eyes: Denies change in vision or diplopia ENT ENT ED: Denies rhinorrhea or sore throat Cardiovascular Cardiovascular: Denies chest pain or palpitations Respiratory/Chest Respiratory/Chest: Denies cough or dyspnea Gastrointestinal Gastrointestinal: Reports diarrhea; Denies abdominal pain, nausea or vomiting Genitourinary Genitourinary ED: Denies dysuria or hematuria Musculoskeletal Musculoskeletal: Denies back pain or neck pain Integumentary Denies abscess or rash Neurologic Neurologic: Denies headache(s), paresthesias or weakness Psychiatric Psychiatric: Denies anxiety or suicidal thoughts EXAM Physical Exam Const Vital Signs: 05/19/22 15:33 05/19/22 17:41 05/19/22 20:11 Temperature 97.6 F L Temperature Source Temporal Pulse Rate 116 H 85 Respiratory Rate 16 19 H Respiratory Effort Normal Non-Labored Respiratory Pattern Normal Blood Pressure 88/70 L 95/76 Blood Pressure Mean 76 82 Pulse Ox 96 93 Oxygen Delivery Method Room Air Room Air 05/19/22 21:27 Temperature Temperature Source Pulse Rate 64 Respiratory Rate 18 Respiratory Effort Respiratory Pattern Blood Pressure 103/75 Blood Pressure Mean 84 Pulse Ox 97 Oxygen Delivery Method Room Air Positive well nourished, well developed and cachectic General Appearance ED: well developed, cachectic and NAD Nutritional Appearance: cachectic HEENT Reports dry mucous membranes HEENT Narrative: Tender right mandible mass, mild overlying erythema but no induration or obvious fluctuance/abscess/cellulitis. Able to open mouth without difficulty. Extremely poor dentition, and there is dried pus around many teeth on the right. With manipulating the tender swollen area right jaw, there is pus emanating from the gingiva approximately where tooth #29 would be. Very limited exam because patient withdraws her head/face out of the way with palpation/examination normocephalic and atraumatic Mouth ED: Yes dry mucous membranes Mouth: dry mucous membranes Eyes PERRL and EOMs intact bilaterally Neck full ROM, no lymphadenopathy and supple Resp normal respiratory effort and clear to auscultation bilaterally Resp Narrative: Diminished breath sounds throughout, symmetrically, trachea midline. Conversive in full sentences. Cardio regular rate, regular rhythm and no murmurs Rate: tachycardic GI non-tender and non-distended Auscultation: normoactive bowel sounds Palpation: soft Back/Spine no CVA tenderness General Back: other FROM Extremity normal to inspection General Extremety ED: Negative for edema, pulses abnormal or tenderness General Extremity: Negative for edema or pulses abnormal Neuro oriented x3, CN's II-XII intact bilaterally and no sensory deficits noted Sensorium / Orientation: awake and alert Motor Exam: strength 5/5 throughout Psych mental status grossly normal Skin no rashes or lesions noted and no wounds MDM MDM MDM Narrative Medical decision making narrative: Patient is dehydrated and debilitated, and she does require admission for further treatment, evaluation, and possibly placement. Family is looking for that because she is unable to care for herself anymore, she lives basically with a mentally handicapped grandchild, who family is placing in a prison because this patient is unable to help care for her anymore. I did a CT of her neck, to evaluate the tender mass in her right mandible. It appears to be a large abscess, and it is internal and external to the body/angle of the mandibular bone, along with lots of radiographically visible poor dentition. I discussed this with the family. They state this has been off and on for months, they did see Dr. Bojorquez for it at 1 point, but he did not think there was anything to drain at the time he saw them, then later it spontaneously drained out the skin, external to her face/neck. Now it is recurred. I do not think this is something I can simply put a needle in and aspirate. Her blood pressure is low at triage/initial evaluation, we gave her fluids and this did come up. Clinically this patient is not septic. She does have white blood count and a large dental abscess that is actively draining from her gingiva. I offered to use a needle and attempt to drain it more for her, but she is not able to hold still, and given her recent hypotension I am less comfortable sedating her at the bedside just to do this since it is actively draining. Antibiotics given, will admit. We paged [facility] multiple times but were unable to get a response tonight. I think this is okay since the abscess is actively draining into her mouth, started her on clindamycin and worst case scenario she can follow-up with them as an outpatient. Discussed w/ hospitalist Lab Data Attestation: I reviewed the patient's lab results. Labs: Laboratory Results - last 24 hr 05/19/22 05/19/22 05/19/22 17:39 17:39 19:40 WBC 16.5 H RBC 3.56 L Hgb 12.2 Hct 36.4 L MCV 102.2 H MCH 34.3 H MCHC 33.5 RDW Std Deviation 47.0 H RDW Coeff of Rosa 12.6 Plt Count 414 MPV 10.1 Immature Gran % (Auto) 0.800 Neut % (Auto) 80.5 H Lymph % (Auto) 9.[address] [place] % (Auto) 9.2 Eos % (Auto) 0.1 Baso % (Auto) 0.2 Absolute Neuts (auto) 13.3 H Absolute Lymphs (auto) 1.52 Nucleated RBC % 0 Differential Comment SCANNED Diff Path Review May foll Sodium 142 Potassium 3.4 L Chloride 99 Carbon Dioxide 31.0 Anion Gap 12 BUN 29 H Creatinine 0.77 Estim Creat Clear Calc 45.76 Est GFR (MDRD) Af Amer 94 Est GFR (MDRD) Non-Af 78 BUN/Creatinine Ratio 37.5 H Glucose 131 H Lactic Acid Calcium 6.6 L Total Bilirubin 0.30 AST 72 H ALT 50 Alkaline Phosphatase 95 Total Protein 7.6 Albumin 2.5 L Globulin 5.1 H Albumin/Globulin Ratio 0.5 L Urine Color Yellow Urine Clarity Clear Urine pH 5.0 Ur Specific [place] 1.025 Urine Protein 30 H Urine Glucose (UA) Normal Urine Ketones 15 H Urine Occult Blood Negative Urine Nitrite Negative Urine Bilirubin Negative Urine Urobilinogen 1 H Ur Leukocyte Esterase 25 H Urine RBC 0 SEEN Urine WBC 0 SEEN Ur Squamous Epith Cells 0 SEEN Urine Bacteria 0 SEEN Urine Mucus 0 SEEN 05/19/22 21:52 WBC RBC Hgb Hct MCV MCH MCHC RDW Std Deviation RDW Coeff of Rosa Plt Count MPV Immature Gran % (Auto) Neut % (Auto) Lymph % (Auto) [place] % (Auto) Eos % (Auto) Baso % (Auto) Absolute Neuts (auto) Absolute Lymphs (auto) Nucleated RBC % Differential Comment Diff Path Review Sodium Potassium Chloride Carbon Dioxide Anion Gap BUN Creatinine Estim Creat Clear Calc Est GFR (MDRD) Af Amer Est GFR (MDRD) Non-Af BUN/Creatinine Ratio Glucose Lactic Acid 1.0 Calcium Total Bilirubin AST ALT Alkaline Phosphatase Total Protein Albumin Globulin Albumin/Globulin Ratio Urine Color Urine Clarity Urine pH Ur Specific [place] Urine Protein Urine Glucose (UA) Urine Ketones Urine Occult Blood Urine Nitrite Urine Bilirubin Urine Urobilinogen Ur Leukocyte Esterase Urine RBC Urine WBC Ur Squamous Epith Cells Urine Bacteria Urine Mucus Radiography Chest X-Ray - ED: 1 View, Read by ED Physician, No Acute Disease, Chronic Changes and No Infiltrates Diagnostic Testing: Clinical Impression(s) from Imaging Studies Soft Tissue Neck CT 05/19/22 16:59 IMPRESSION: Right perimandibular abscess collection. Poor dentition with multiple periodontal osseous erosions possible source. Electronically Signed: Sharath Castañeda MD at 19:06 EST , Chest X-Ray 05/19/22 18:46 IMPRESSION: No radiographic evidence of acute cardiopulmonary disease. COPD. Electronically Signed: Sharath Castañeda MD at 19:32 EST , Discharge Plan Dx/Rx/DC Orders Clinical Impression: Debility, Dehydration, Malnutrition, Dental abscess Disposition Disposition: [facility] Capacity Capacity Assessment Tool Can the patient make a choice & communicate that choice?: Yes Can the patient understand benefits, risks and alternatives?: Yes Can the patient make a logical, rational choice?: Yes Is the choice the patient makes consistent w/ their values?: No Is there an impending, emergent risk to the patient?: Unable to Determine Does the patient have an Advance Directive?: Yes (HCPOA) Is there a Surrogate Available?: Yes i.e. HCPOA: Yes
[2022-05-19] MEDS: 0.9% Normal Saline 1,000 ML 250 ML IV (17:43)
[2022-05-19 18:06] LABS: Absolute Lymphocyte Count 1.52 X10^3/uL (0.83-4.51); Absolute Neutrophil Count 13.3 X10^3/uL (2.0-7.7); Basophil# 0.04 X10^3/uL; Basophil% 0.2 % (0-1); Eosinophil# 0.01 X10^3/uL; Eosinophils% 0.1 % (0-5); Hematocrit 36.4 % (37-47); Hemoglobin 12.2 g/dL (12.0-15.0); Lymphocyte # 1.52 X10^3/ul (0.83-4.51); Lymphocyte % 9.2 % (19-41); Mean Corp Hgb Conc 33.5 g/dL (32-36); Mean Corpuscular Hgb 34.3 pg (27.0-32.0); Mean Corpuscular Volume 102.2 fL (81-99); Mean Platelet Vol. 10.1 fl (6.2-12.0); Monocyte# 1.52 X10^3/uL; Monocyte% 9.2 % (0-10); NRBC Flagged by Analyzer 0 % (0-5); Neutrophil # 13.31 X10^3/uL (2.7-7.7); Neutrophil % 80.5 % (47-70); POSITIVE DIFFERENTIAL YES; Platelet Count 414 K/mm3 (150-450); RBC Distribution Width CV 12.6 % (11.6-14.6); Red Blood Count 3.56 M/mm3 (4.2-5.4); White Blood Count 16.5 K/mm3 (4.4-11.0)
[2022-05-19 18:12] LABS: Differential Indicated SCAN CRITERIA MET
[2022-05-19 18:23] LABS: ALB/GLOB Ratio 0.5 RATIO (0.9-2.4); AST(SGOT) 72 U/L (15-37); Alanine Aminotransfer ALT/SGPT 50 U/L (13-56); Albumin, Serum 2.5 g/dL (3.2-5.0); Alkaline Phosphatase 95 U/L (45-117); Anion Gap 12 (5-15); BUN 29 mg/dL (7-18); BUN/Creat Ratio 37.5 RATIO (10-20); Calcium,Total 6.6 mg/dL (8.5-10.1); Chloride 99 mmol/L (98-107); Creatinine, Serum 0.77 mg/dL (0.55-1.02); EST Glomerular Filtration Rate 78 mL/min (>60); Est Glom Filt Rate - Afr Amer 94 mL/min (>60); Estimated Creatinine Clearance 45.76 ml/min; Globulin 5.1 g/dL (2.2-4.2); Glucose 131 mg/dL (74-106); Potassium 3.4 mmol/L (3.5-5.1); Protein, Total 7.6 g/dL (6.4-8.2); Sodium Level 142 mmol/L (136-145)
[2022-05-19 18:43] LABS: Differential Comment SCANNED
--- NOTE | 2022-05-19 18:46 | RAD_ITS ---
INDICATION: weakness EXAMINATION/TECHNIQUE: X-RAY - XR Chest 2 Views COMPARISON: 10/05/2021 FINDINGS: LINES/DEVICES: None. LUNGS: Hyperinflation. No consolidation, vascular congestion or pleural effusion. MEDIASTINUM AND CARDIOVASCULAR STRUCTURES: Stable cardiomegaly. BONES AND SOFT TISSUES: Unremarkable. RAD/Chest PA and Lateral IMPRESSION: No radiographic evidence of acute cardiopulmonary disease. COPD. Electronically Signed: Sharath Castañeda MD at 19:32 EST ,
[2022-05-19 19:44] LABS: Bacteria 0 SEEN /hpf (None Seen); Mucous, Urine 0 SEEN /hpf (<or=2+); Red Blood Cells-Urine 0 SEEN /hpf (0-5); Squamous Epithelial Cells - UA 0 SEEN /hpf (5-10); White Blood Cells 0 SEEN /hpf (0-5)
[2022-05-19 19:53] LABS: Color, Urine Yellow (Yellow); Glucose, Dipstick Normal (Normal); Ketone-Dipstick 15 mg/dl (Negative); Leukocyte Esterase-Dipstick 25 /ul (Negative); Nitrite-Dipstick Negative (Negative); Occult Blood-Urine Negative /ul (Negative); Protein-Dipstick 30 mg/dl (Negative); Specific Gravity, Urine 1.025 (1.002-1.030); Urine Bilirubin Dipstick Negative (Negative); Urine Clarity Clear (Clear); Urine Urobilinogen 1 mg/dl (Normal)
[2022-05-19 20:11] VITALS: BP 95/76; PULSE 85; RESP 19; O2SAT 93
[2022-05-19 21:27] VITALS: BP 103/75; PULSE 64; RESP 18; O2SAT 97
--- NOTE | 2022-05-19 21:48 | PCM.HP.STD ---
HPI - General General Date of Admission: 05/19/22 Date of Service: 05/19/22 Chief Complaint: unable to take care of self HPI Narrative MARICEL FLOWERS, is a 72 F with a history of COPD and tobacco abuse who presents to the emergency department because she is unable to care for self. Also patient is too weak to walk. She reported her weakness has been going on for about 2 weeks. Patient has a mentally handicapped son that she takes care of. However, her family is planning to put the mentally handicapped child in the facility as patient is unable to take care of the child. Also patient has an abscess in her right mandible. For this abscess she saw Dr. Fleming at the office. When she went home the abscess started draining from her face. Now the abscess is draining from her jaw into her oral cavity. She reports poor appetite. Poor appetite is unrelated to the abscess in the mouth. She just said she does not have the urge to eat. [facility] Medical History Anemia COPD (chronic obstructive pulmonary disease) Coronary atherosclerosis GERD (gastroesophageal reflux disease) Heart disease Hypotension Hypoxemia Hypoxia IBS (irritable bowel syndrome) Macrocytic anemia Osteoporosis Porphyrin metabolism disorder Smoker Thyroid disease TIA (transient ischemic attack) Tobacco use disorder Home Medications aspirin 81 mg tablet,delayed release 81 mg PO DAILY heart health 11/10/16 [History Last Taken 09/28/21] atorvastatin 20 mg tablet 20 mg PO QHS cholesterol lowering 11/10/16 [History Last Taken 09/28/21] clopidogrel 75 mg tablet 75 mg PO QHS heart health 11/10/16 [History Last Taken 09/28/21] ipratropium 20 mcg-albuterol 100 mcg/actuation mist for inhalation 1 puff inhalation PRN PRN Wheezing 11/10/16 [History Last Taken Unknown] meloxicam 15 mg tablet 15 mg PO DAILY arthritis 11/10/16 [History Last Taken 09/28/21] acetaminophen 500 mg tablet (Tylenol Extra Strength) 1,000 mg PO DAILY pain 12/02/16 [History Last Taken Unknown] alendronate 70 mg tablet 70 mg PO QWEEK bone health 12/29/16 [History Last Taken Unknown] anastrozole 1 mg tablet 1 mg PO DAILY hormone therapy 09/29/21 [History Last Taken 09/28/21] fluticasone 250 mcg-salmeterol 50 mcg/dose blistr powdr for inhalation 1 ea inhalation PRN PRN breathing 09/29/21 [History Last Taken Unknown] midodrine 5 mg tablet 10 mg PO TIDCM blood pressure 12/30/21 [History Last Taken Unknown] omeprazole 20 mg capsule,delayed release 20 mg PO QHS acid reflux 02/22/22 [History Last Taken Unknown] albuterol sulfate 90 mcg/actuation aerosol inhaler (Ventolin HFA) 2 puff inhalation Q4H PRN shortness of breath or wheezing #18 grams 04/06/22 [Rx Last Taken Unknown] Allergy/AdvReac Type Severity Reaction Status Date / Time alendronate sodium AdvReac Severe Unknown Verified 02/22/22 10:49 [From Fosamax] nickel AdvReac Intermediate Rash Verified 02/22/22 10:49 rofecoxib [From Vioxx] AdvReac Intermediate Unknown Verified 02/22/22 10:49 iron AdvReac Mild Other Verified 02/22/22 10:49 Family History Mother Diabetes Arthritis Hypertension Father Anemia Sister Breast cancer Surgical History History of cardiac cath History of section History of coronary artery stent placement History of lumpectomy History of PTCA Social History Smoking Status: Current every day smoker tobacco type: cigarettes ROS ROS Narrative Pertinent positives and pertinent negatives as noted in HPI. All other systems were reviewed and are negative Vital Signs Vital Signs Vital Signs: 05/19/22 15:33 05/19/22 17:41 05/19/22 20:11 Temperature 97.6 F L Temperature Source Temporal Pulse Rate 116 H 85 Respiratory Rate 16 19 H Respiratory Effort Normal Non-Labored Respiratory Pattern Normal Blood Pressure 88/70 L 95/76 Blood Pressure Mean 76 82 Pulse Ox 96 93 Oxygen Delivery Method Room Air Room Air 05/19/22 21:27 Temperature Temperature Source Pulse Rate 64 Respiratory Rate 18 Respiratory Effort Respiratory Pattern Blood Pressure 103/75 Blood Pressure Mean 84 Pulse Ox 97 Oxygen Delivery Method Room Air Weight Weight: 108 kg Body Mass Index (BMI) 39.6 Physical Exam Narrative Physical exam: General: Patient does not look sick Head: Normocephalic, atraumatic, no tenderness Eyes: Vision is grossly intact. EOMI ENT: Induration at right mandible; tender. Pus in the inner side of right mandible. Left mandible with no induration, no swelling. Poor dentition. Neck: Nontender, No thyromegaly. CVS: Tachycardia. S1-S2 present. No murmur, gallop or rub. Respiratory : Diminished, chest wall nontender Abdomen: Scaphoid; soft, nontender, nondistended, normal bowel sounds, no masses : Deferred Back: Nontender, no CVA tenderness. Extremities: Cachectic. no trauma Skin: Normal color, no trauma, abrasions Neuro: Alert, oriented, cranial nerves II through XII grossly intact. Psychiatry: Normal mood. Normal affect. Not depressed. Not anxious. Results Lab / Micro Data Result Diagrams: 05/19/22 17:39 05/19/22 17:39 Labs: Laboratory Results - last 24 hr 05/19/22 17:39: WBC 16.5 H, RBC 3.56 L, Hgb 12.2, Hct 36.4 L, MCV 102.2 H, MCH 34.3 H, MCHC 33.5, RDW Std Deviation 47.0 H, RDW Coeff of Rosa 12.6, Plt Count 414, MPV 10.1, Immature Gran % (Auto) 0.800, Neut % (Auto) 80.5 H, Lymph % (Auto) 9.2 L, [place] % (Auto) 9.2, Eos % (Auto) 0.1, Baso % (Auto) 0.2, Absolute Neuts (auto) 13.3 H, Absolute Lymphs (auto) 1.52, Nucleated RBC % 0, Differential Comment SCANNED, Diff Path Review August foll 05/19/22 17:39: Sodium 142, Potassium 3.4 L, Chloride 99, Carbon Dioxide 31.0, Anion Gap 12, BUN 29 H, Creatinine 0.77, Estim Creat Clear Calc 45.76, Est GFR (MDRD) Af Amer 94, Est GFR (MDRD) Non-Af 78, BUN/Creatinine Ratio 37.5 H, Glucose 131 H, Calcium 6.6 L, Total Bilirubin 0.30, AST 72 H, ALT 50, Alkaline Phosphatase 95, Total Protein 7.6, Albumin 2.5 L, Globulin 5.1 H, Albumin/Globulin Ratio 0.5 L 05/19/22 19:40: Urine Color Yellow, Urine Clarity Clear, Urine pH 5.0, Ur Specific [place] 1.025, Urine Protein 30 H, Urine Glucose (UA) Normal, Urine Ketones 15 H, Urine Occult Blood Negative, Urine Nitrite Negative, Urine Bilirubin Negative, Urine Urobilinogen 1 H, Ur Leukocyte Esterase 25 H, Urine RBC 0 SEEN, Urine WBC 0 SEEN, Ur Squamous Epith Cells 0 SEEN, Urine Bacteria 0 SEEN, Urine Mucus 0 SEEN Radiology Impression Soft Tissue Neck CT 05/19/22 16:59 IMPRESSION: Right perimandibular abscess collection. Poor dentition with multiple periodontal osseous erosions possible source. Electronically Signed: Sharath Castañeda MD at 19:06 EST , Chest X-Ray 05/19/22 18:46 IMPRESSION: No radiographic evidence of acute cardiopulmonary disease. COPD. Electronically Signed: Sharath Castañeda MD at 19:32 EST , Assessment & Plan Assessment/Plan (1) Dental abscess: (2) Smoking greater than 40 pack years: (3) Debility: (4) Dehydration: (5) Failure to thrive in adult: (6) Malnutrition: PLAN: Plan Dental abscess Chest x-ray showed no radiographic evidence of acute cardiopulmonary disease. COPD. Chest x-ray was visualized and independently interpreted. I agree with drug interpretation. Soft tissue neck CT with right perimandibular abscess collection. CBC with white count of 16.5. With neutrophilia of 80.5%. Patient meets SIRS criteria with leukocytosis and tachycardia. However only blood pressure x1 was less than 90 and for which patient received IV fluids. Hypocalcemia Calcium on presentation was 6.6. Albumin was 2.5. Corrected calcium is 7.8. Asymptomatic. Trend Severe protein calorie monitorization Cachectic. BMI of 16.6 kg per metered square. Patient declines consideration for a PEG tube. Megace ordered. Ensure alive ordered. Nutritional consult. Dehydration Patient with elevated BUN of 29. Creatinine is stable. BUN/creatinine 37.5. IV hydration ordered. Trend CMP. Elevated liver enzymes Patient with normal ALT and alkaline phosphatase. AST is elevated at 72. Trend. Tobacco abuse Counseled. Nicotine patch prescribed Debility/failure to thrive PT and OT to work with patient. Case management consult. DVT prophylaxis Subcutaneous Lovenox ordered. Charges/Coding Visit Charges Inpatient E&M: 63588 Init Hosp L3
[2022-05-19] MEDS: Clindamycin 600 MG/50 ML BAG 100 MG IV (22:13)
[2022-05-19 22:45] VITALS: BP 112/83; PULSE 99; RESP 18; TEMP 36.9; O2SAT 95
--- NOTE | 2022-05-19 22:59 | ED.RN ---
Pt mouth cleaned slightly with oral swabs. Pt tolerated well but instructed this RN to stop before completion.
[2022-05-20 00:01] VITALS: BMI 14.8
[2022-05-20 00:07] VITALS: BP 106/70; PULSE 97; RESP 20; TEMP 36.4; O2SAT 97
[2022-05-20] MEDS: Lactated Ringers 1,000 ML 75 ML IV (01:33)
[2022-05-20 05:36] LABS: Absolute Lymphocyte Count 1.54 X10^3/uL (0.83-4.51); Absolute Neutrophil Count 7.5 X10^3/uL (2.0-7.7); Basophil# 0.04 X10^3/uL; Basophil% 0.4 % (0-1); Eosinophil# 0.02 X10^3/uL; Eosinophils% 0.2 % (0-5); Hematocrit 34.1 % (37-47); Hemoglobin 10.8 g/dL (12.0-15.0); Lymphocyte # 1.54 X10^3/ul (0.83-4.51); Mean Corp Hgb Conc 31.7 g/dL (32-36); Mean Corpuscular Hgb 33.2 pg (27.0-32.0); Mean Corpuscular Volume 104.9 fL (81-99); Mean Platelet Vol. 9.9 fl (6.2-12.0); Monocyte# 1.06 X10^3/uL; Monocyte% 10.3 % (0-10); NRBC Flagged by Analyzer 0 % (0-5); Neutrophil # 7.54 X10^3/uL (2.7-7.7); Neutrophil % 73.3 % (47-70); Platelet Count 354 K/mm3 (150-450); RBC Distribution Width CV 12.7 % (11.6-14.6); RBC Distribution Width SD 49.1 fl (35.1-43.9); Red Blood Count 3.25 M/mm3 (4.2-5.4); White Blood Count 10.3 K/mm3 (4.4-11.0)
[2022-05-20 06:12] VITALS: BP 110/81; PULSE 94; RESP 18; TEMP 36.6; O2SAT 94
[2022-05-20] MEDS: metroNIDAZOLE 500 MG/100 ML BAG 100 MG IV (06:16)
[2022-05-20] MEDS: Menthol/Lanolin/Calamine/Znox 113 GM Tube 1 APPLIC TOPICAL ×3 (06:16→22:52)
[2022-05-20] MEDS: Megestrol 40 MG Tablet 80 MG PO ×3 (06:18→22:51)
[2022-05-20] MEDS: Ensure Clear 120 ML Liquid PO (08:45)
[2022-05-20] MEDS: Enoxaparin 40 MG/0.4 ML Syringe SC (08:45)
[2022-05-20] MEDS: Potassium Chloride Oral Tablet 20 MEQ 40 MEQ PO (08:47)
[2022-05-20 09:35] VITALS: O2SAT 93
--- NOTE | 2022-05-20 10:22 | PN.HOSP_ITS ---
Reason for Visit Reason for Visit: Diagnoses Unspecified protein-calorie malnutrition (05/19/22) Dehydration (05/19/22) Nicotine dependence, cigarettes, uncomplicated (05/19/22) Periapical abscess without sinus (05/19/22) Other malaise (05/19/22) Adult failure to thrive (05/19/22) Subjective Subjective Patient seen and examined. She was admitted o/a of failure to thrive. She had no active complaints today. She denied fever, chills, cough, chest pain, palpitations, dizziness, nausea, vomiting or diarrhea. Review of systems is otherwise negative. Objective Data Objective Data Vital Signs: Vital Signs Temp Pulse Resp BP Pulse Ox O2 Del Method 97.9 F 94 18 110/81 H 93 Room Air 05/20/22 06:12 05/20/22 06:12 05/20/22 06:12 05/20/22 06:12 05/20/22 09:35 05/20/22 09:35 Oxygen Delivery Method Room Air Weight: 89 lb 8.123 oz Body Mass Index (BMI) 14.8 Intake & Output: Intake and Output for Last 24 Hours 05/18/22 05/19/22 05/20/22 23:59 23:59 23:59 Intake Total 1050 / 1050 630 / 630 Balance 1050 / 1050 630 / 630 Medical Nutrition Assessment Dietitian: Malnutrition Criteria Met Start: 05/20/22 10:08 Freq: Status: Active Protocol: Document 05/20/22 10:08 LIZ (Rec: 05/20/22 10:08 LIZ [id number]) Nutrition Malnutrition Evidence of Malnutrition Exists Yes Malnutrition (severe): Chronic Evidenced By Suboptimal Energy Intake ( Severe),Weight Loss (Severe), Physical Changes (Severe) Clinical Problem Chronic Disease or Condition Related Malnutrition Etiology severe malnutrition r/t inadequate energy intake Signs/Symptoms as evidenced by po intake meeting <75% of energy needs x >3 months; 14.8% unintended wt loss x 5 months and fat/ muscle loss in face (orbitals, temporal, buccal), torso ( scapula/clavicle), arms and legs (triceps, quads). Status Active Problem Recommendation Dietitian Recommendations/Changes As medically able, rec FUNMILAYO to liberal regular d/t signs/ symptoms of malnutrition Rec change ensure clear 4 oz 4x/day w/ medpass to ensure plus high protein when diet advanced to full liquids Will provide 8 oz ensure clear tid w/ meals while on liquid diet, once advanced to solids, will change to 8 oz CIB w/ B, ensure pudding w/ L and magic cup w/ D for increased nutrition if consumed. Lab / Micro Data Result Diagrams: 05/20/22 04:48 05/19/22 17:39 Labs: Laboratory Results - last 24 hr 05/19/22 17:39: WBC 16.5 H, RBC 3.56 L, Hgb 12.2, Hct 36.4 L, MCV 102.2 H, MCH 34.3 H, MCHC 33.5, RDW Std Deviation 47.0 H, RDW Coeff of Rosa 12.6, Plt Count 414, MPV 10.1, Immature Gran % (Auto) 0.800, Neut % (Auto) 80.5 H, Lymph % (Auto) 9.2 L, [place] % (Auto) 9.2, Eos % (Auto) 0.1, Baso % (Auto) 0.2, Absolute Neuts (auto) 13.3 H, Absolute Lymphs (auto) 1.52, Nucleated RBC % 0, Differ ential Comment SCANNED, Diff Path Review August05/19/22 17:39: Sodium 142, Potassium 3.4 L, Chloride 99, Carbon Dioxide 31.0, Anion Gap 12, BUN 29 H, Creatinine 0.77, Estim Creat Clear Calc 45.76, Est GFR (MDRD) Af Amer 94, Est GFR (MDRD) Non-Af 78, BUN/Creatinine Ratio 37.5 H, Glucose 131 H, Calcium 6.6 L, Total Bilirubin 0.30, AST 72 H, ALT 50, Alkaline Phosphatase 95, Total Protein 7.6, Albumin 2.5 L, Globulin 5.1 H, Albumin/Globulin Ratio 0.5 L 05/19/22 19:40: Urine Color Yellow, Urine Clarity Clear, Urine pH 5.0, Ur Specific Bullock 1.025, Urine Protein 30 H, Urine Glucose (UA) Normal, Urine Ketones 15 H, Urine Occult Blood Negative, Urine Nitrite Negative, Urine Bilirubin Negative, Urine Urobilinogen 1 H, Ur Leukocyte Esterase 25 H, Urine RBC 0 SEEN, Urine WBC 0 SEEN, Ur Squamous Epith Cells 0 SEEN, Urine Bacteria 0 SEEN, Urine Mucus 0 SEEN 05/19/22 21:52: Lactic Acid 1.0 05/20/22 04:48: WBC 10.3, RBC 3.25 L, Hgb 10.8 L, Hct 34.1 L, MCV 104.9 H, MCH 33.2 H, MCHC 31.7 L D, RDW Std Deviation 49.1 H, RDW Coeff of Rosa 12.7, Plt Count 354, MPV 9.9, Immature Gran % (Auto) 0.800, Neut % (Auto) 73.3 H, Lymph % (Auto) 15.0 L, [place] % (Auto) 10.3 H, Eos % (Auto) 0.2, Baso % (Auto) 0.4, Absolute Neuts (auto) 7.5, Absolute Lymphs (auto) 1.54, Nucleated RBC % 0 Radiography Diagnostic Testing: Radiology Impression Soft Tissue Neck CT 05/19/22 16:59 IMPRESSION: Right perimandibular abscess collection. Poor dentition with multiple periodontal osseous erosions possible source. Electronically Signed: Sharath Castañeda MD at 19:06 EST Reading Location ID and State: [facility] / [place] Tel , Service support , Chest X-Ray 05/19/22 18:46 IMPRESSION: No radiographic evidence of acute cardiopulmonary disease. COPD. Electronically Signed: Sharath Castañeda MD at 19:32 EST Reading Location ID and State: [facility] / [place] Tel , Service support , Physical Exam Const alert, oriented x3 and no apparent distress Constitutional Narrative: very frail HEENT head/scalp atraumatic, moist oral mucous membranes and oropharynx normal HEENT Narrative: very poor dentition Head and Scalp: normocephalic Mouth: oral and palatal mucosa normal Eyes PERRL, EOMs intact bilaterally and conjunctivae normal Neck no lymphadenopathy and supple Resp normal respiratory effort, no retractions, no use of accessory muscles and clear to auscultation bilaterally Cardio regular rate, regular rhythm, S1 normal heart sound, S2 normal heart sound and no murmurs GI normal to inspection, nondistended, normoactive bowel sounds, soft to palpation and non-tender Extremity normal to inspection, full ROM and no clubbing, cyanosis or edema Neuro oriented x3, CN's II-XII intact bilaterally, moves all extremities and no focal motor deficits Sensorium / Orientation: awake and alert Motor Exam: strength 5/5 throughout Psych affect normal Assessment & Plan Assessment/Plan (1) Failure to thrive in adult: (2) Debility: (3) Dental abscess: PLAN: Plan #Adult failure to thrive * patient very weak and frail * lives at home, but unable to care for herself. * PT/OT on board. * Fall precautions * #Right mandibular abscess * abscess now draining into oral cavity * I spoke to Dr Bojorquez; he will see patient tomorrow * per discussion with Dr Bojorquez, will switch current antibiotics to IV unasyn. * #COPD: not in exacerbation. On breathing treatment with bronchodilators. #GERd: on PPI #Nicotine dependence: counseled to quit. On Nicotine patch 21mg daily. #History of breast cancer: on anastrozole #CAD: on aspirin, plavix and statin DVT prophylaxis: lovenox Charges/Coding Visit Charges Inpatient E&M: 75404 Subs Hosp L2
[2022-05-20 11:23] LABS: ALB/GLOB Ratio 0.6 RATIO (0.9-2.4); AST(SGOT) 56 U/L (15-37); Alanine Aminotransfer ALT/SGPT 45 U/L (13-56); Albumin, Serum 2.3 g/dL (3.2-5.0); Alkaline Phosphatase 84 U/L (45-117); Anion Gap 11 (5-15); BUN 25 mg/dL (7-18); BUN/Creat Ratio 38.8 RATIO (10-20); Calcium,Total 5.8 mg/dL (8.5-10.1); Chloride 103 mmol/L (98-107); Creatinine, Serum 0.64 mg/dL (0.55-1.02); EST Glomerular Filtration Rate 96 mL/min (>60); Est Glom Filt Rate - Afr Amer 116 mL/min (>60); Estimated Creatinine Clearance 32.59 ml/min; Globulin 3.9 g/dL (2.2-4.2); Glucose 91 mg/dL (74-106); Potassium 3.2 mmol/L (3.5-5.1); Protein, Total 6.2 g/dL (6.4-8.2); Sodium Level 144 mmol/L (136-145)
[2022-05-20] MEDS: Anastrozole 1 MG TABLET PO (11:37)
[2022-05-20] MEDS: Aspirin E.C. 81 MG Tablet PO (11:38)
--- NOTE | 2022-05-20 12:23 | CASEMGMT ---
Addendum entered and electronically signed by Olive Velasquez RN 05/20/22 12:40: Discussed living will and HPOA paperwork with pt's daughter Libertad, and requested she bring these in so copies could be placed on pt's chart. Libertad agreeable to do so. Mary Velasquez RN CM Original Note: [facility] DC Planning Assessment: Face to Face with patient for initial transition planning/care coordination assessment. Pt alert, oriented but forgetful, sitting up in chair. [facility]ION [facility] introduced self and role at [facility], pt voices understanding.?Care providers, pharmacy,?and demographics verified. ? Admitting dx: FTT, dental abscess, malnutrition, dehydration PCP: Kelli Arriaga NP Specialists: none Preferred Pharmacy: [facility] Insurance: [employer] Prescription Benefit:?yes Living Will/HPOA: yes/yes-HPOA daughter Libertad LNOK: daughter Libertad Living Arrangements: Pt lives in a two story home with her 29yo multihandicapped granddaughter. Pt states her bed is on the first floor and she has a bathroom on the first floor. Pt states she has been independently completing ADLs including self care and meal preparation. States her granddaughter assists with some household tasks. Transportation: Family transports as needed DME: Tub bench, BSC, raised toilet seat, wheeled walker, hand held shower, lift chair, nebulizer, pulse oximeter, oxygen (pt states she does not wear) from [employer]. SNF: none HHC: yes but does not recall the name of the provider ? Plan: Pt states she would like to return home at discharge. Reviewed PT/OT notes which state pt ambulated 3 feet and additional therapy is recommended at discharge. Pt states her daughter will be with her at discharge and able to assist her. Pt provided permission for this ASUNCION VALENTIN to contact her daughter to confirm this plan. Call placed to pt's daughter Libertad who states she is not available to stay with pt at pt's discharge as she works, has two young kids, and her spouse also works. Libertad states she has been working with the Board of [place] for placement of pt's granddaughter into a residential and is filing for emergency guardianship. Libertad states states she has been assisting pt with obtaining groceries and medication management. Libertad has noted that pt will state she has taken her medications but in fact has not as the meds are still present. Pt also states she has eaten items that were not present for her to have eaten. Pt's bed had been moved down from the second floor last week and there is only a toilet available on the first floor. Libertad relayed that when she went to visit pt yesterday, pt was sitting on the edge of her bed covered in BM and was c/o feeling dizzy which prompted the visit to the ED. Libertad requests for pt to be discharged to a SNF for ongoing therapy and to get the care that the pt needs. Requested [facility] as pt's sister works there and feels this will help make pt agreeable. This RN to pt's chairside and relayed conversation had with pt's daughter regarding discharge and that Libertad will not be available to stay with her. Pt stated she wouldn't need help and stated she would be able to care for herself. Pt stated she was being lazy here and could do more if she needed to. This RN BARBIE asked pt if she was walking to the bathroom prior to admission or if she was cooking her own meals and pt states I don't remember. Explained to pt that there is a concern that she has not been eating and that this has led to her needing admitted to the hospital. List of SNF printed from [facility] including quality and resource use data and consistent with her insurance network, geographic area, and in-network with her insurance was provided to pt. Explained that Libertad suggested [facility] as pt's sister works there. Pt reviewed the list. Pt states she will go get the help I need and is agreeable to [facility] referral at this time. MARINA Madrid notified of pt's agreement. Mary Velasquez RN CM
[2022-05-20 12:31] LABS: Magnesium 0.3 mg/dL (1.6-2.6)
--- NOTE | 2022-05-20 12:39 | CASEMGMT ---
Addendum entered by Mercy [facility] 05/20/22 14:36: Social Work [facility] is able to accept pt however they are requesting pt be made aware they are a non smoking facility. SW met with pt to discuss this. Pt did not recall extensive conversation with KIARA Schaefer regarding SNF placement earlier today. SW reviewed conversation and pt is agreeable to go to [facility] even though she will not be allowed to smoke. Phone call to dgquinten Maurer and updated that [facility] will accept and discussed the smoking policy. Libertad agreeable. SW requested [facility] start precert at this time. Plan: [facility], pending precert MARINA Quintanilla Original Note: Social Work SW received referral from KIARA that pt is agreeable to go to [facility]. Referral sent via [facility]. Will await determination of acceptance. Pt will need precert prior to discharge. Plan: [facility], pending acceptance and precert MARINA Quintanilla
[2022-05-20 13:23] LABS: Pathologist Review Reviewed
[2022-05-20 14:34] VITALS: BP 97/82; PULSE 87; RESP 18; TEMP 36.7; O2SAT 94
--- NOTE | 2022-05-20 14:35 | CASEMGMT ---
Social Work SW spoke with kaylee who states she brought pt's living will and health care POA to medical records office today for scanning into EMR. Kaylee France is HCPOA. MARINA Quintanilla
--- NOTE | 2022-05-20 15:28 | NURSING ---
IV attempted x2. Patient refusing any more IV attempts at this time.
[2022-05-20] MEDS: Magnesium Sulfate 4gm/100mL 4 GM/100 ML IV.SOLN. IV (15:51)
[2022-05-20 16:46] LABS: Magnesium < 0.3 mg/dL (1.6-2.6)
[2022-05-20] MEDS: Budesonide Respules 0.5 MG/2 ML AMPUL.NEB. INHALATION (19:11)
[2022-05-20 19:14] VITALS: PULSE 94; RESP 28; O2SAT 93
[2022-05-20 20:30] VITALS: BP 108/80; PULSE 94; RESP 16; TEMP 36.2; O2SAT 95
[2022-05-20] MEDS: Atorvastatin Calcium 20 MG Tablet PO (22:51)
[2022-05-20] MEDS: Clopidogrel Bisulfate 75 MG Tablet PO (22:51)
[2022-05-20] MEDS: Pantoprazole Sodium 20 MG Tablet PO (22:52)
[2022-05-21] VITALS (7 sets, daily range): BP systolic 94–117; BP diastolic 52–84; PULSE 86–97; RESP 16–19; TEMP 36.4–36.8; O2SAT 92–99
[2022-05-21] MEDS: Lactated Ringers 1,000 ML 75 ML IV ×2 (01:03→10:22)
[2022-05-21] MEDS: Megestrol 40 MG Tablet 80 MG PO ×3 (05:29→20:05)
[2022-05-21] MEDS: Menthol/Lanolin/Calamine/Znox 113 GM Tube 1 APPLIC TOPICAL ×3 (05:29→20:13)
[2022-05-21] MEDS: Budesonide Respules 0.5 MG/2 ML AMPUL.NEB. INHALATION ×2 (06:51→19:23)
[2022-05-21 07:48] LABS: Absolute Lymphocyte Count 1.34 X10^3/uL (0.83-4.51); Absolute Neutrophil Count 8.7 X10^3/uL (2.0-7.7); Basophil# 0.04 X10^3/uL; Basophil% 0.4 % (0-1); Eosinophil# 0.05 X10^3/uL; Eosinophils% 0.5 % (0-5); Lymphocyte # 1.34 X10^3/ul (0.83-4.51); Lymphocyte % 12.4 % (19-41); Mean Corp Hgb Conc 32.5 g/dL (32-36); Mean Corpuscular Hgb 33.2 pg (27.0-32.0); Mean Corpuscular Volume 102.3 fL (81-99); Monocyte# 0.68 X10^3/uL; Monocyte% 6.3 % (0-10); NRBC Flagged by Analyzer 0 % (0-5); Neutrophil # 8.67 X10^3/uL (2.7-7.7); Neutrophil % 79.8 % (47-70); Platelet Count 390 K/mm3 (150-450); RBC Distribution Width CV 12.7 % (11.6-14.6); RBC Distribution Width SD 47.8 fl (35.1-43.9); Red Blood Count 3.91 M/mm3 (4.2-5.4); White Blood Count 10.9 K/mm3 (4.4-11.0)
[2022-05-21] MEDS: Aspirin E.C. 81 MG Tablet PO (08:43)
[2022-05-21 08:44] LABS: Magnesium 1.5 mg/dL (1.6-2.6)
[2022-05-21] MEDS: Potassium Chloride Oral Tablet 20 MEQ 40 MEQ PO ×2 (08:44→14:25)
[2022-05-21] MEDS: Enoxaparin 40 MG/0.4 ML Syringe SC (08:45)
[2022-05-21] MEDS: Ensure Clear 120 ML Liquid PO ×3 (08:45→20:04)
[2022-05-21] MEDS: Anastrozole 1 MG TABLET PO (08:45)
[2022-05-21 08:53] LABS: ALB/GLOB Ratio 0.5 RATIO (0.9-2.4); AST(SGOT) 51 U/L (15-37); Alanine Aminotransfer ALT/SGPT 39 U/L (13-56); Albumin, Serum 2.6 g/dL (3.2-5.0); Alkaline Phosphatase 107 U/L (45-117); Anion Gap 9 (5-15); BUN 16 mg/dL (7-18); BUN/Creat Ratio 29.5 RATIO (10-20); Calcium,Total 7.6 mg/dL (8.5-10.1); Chloride 103 mmol/L (98-107); Creatinine, Serum 0.54 mg/dL (0.55-1.02); EST Glomerular Filtration Rate 117 mL/min (>60); Est Glom Filt Rate - Afr Amer 142 mL/min (>60); Estimated Creatinine Clearance 32.59 ml/min; Glucose 87 mg/dL (74-106); Potassium 3.4 mmol/L (3.5-5.1); Protein, Total 7.6 g/dL (6.4-8.2); Sodium Level 141 mmol/L (136-145)
[2022-05-21] MEDS: Midodrine HCl 5 MG Tablet 10 MG PO (10:23)
[2022-05-21] MEDS: Meloxicam 15 MG Tablet PO (10:24)
--- NOTE | 2022-05-21 10:45 | PN_ITS ---
Progress Note Patient seen at bed side very cooperative and allowed me to exam her neck and jaw swelling. Physical Exam Const alert, oriented x3 and no apparent distress General Appearance: cooperative and comfortable Orientation / Consciousness: awake and oriented to person HEENT normocephalic HEENT Narrative: Swelling right lower jaw not going into neck w/o lymphadenopathy. Teeth on the lower right side are in poor repair. Can swallow and take liquids and probably food , although, she is not hungry at this time. Mouth: dry mucous membranes and other Other Details: and non restorable lower molar on the right mandible. Throat: posterior oropharynx normal and other Other Details: and no masses seen. Neck full ROM and no lymphadenopathy Assessment & Plan Assessment/Plan (1) Dental abscess: PLAN: Once the patient gets stabilized from this hospitalization and can be discharged, and if she can tolerate local anesthesia I will remove the necessary teeth causing the mandibular swelling. If she can not tolerate the local and requires general anesthesia then will do at the hospital, potentially during this hospitalization. PLAN: Plan Poor dentition. If the patient can tolerate local anesthesia will see in office to remove necessary teeth and possible I and D if need be. Otherwise if we require sedation or general anesthesia will do at [facility].
--- NOTE | 2022-05-21 12:28 | PN.HOSP_ITS ---
Reason for Visit Reason for Visit: Diagnoses Unspecified protein-calorie malnutrition (05/19/22) Dehydration (05/19/22) Nicotine dependence, cigarettes, uncomplicated (05/19/22) Periapical abscess without sinus (05/19/22) Other malaise (05/19/22) Adult failure to thrive (05/19/22) Subjective Subjective Patient seen and examined. She had no active complaints this morning and had an uneventful night. REview of systems is otherwise negative. Objective Data Objective Data Vital Signs: Vital Signs Temp Pulse Resp BP Pulse Ox O2 Del Method 98.1 F 90 18 116/72 97 Room Air 05/21/22 10:35 05/21/22 11:48 05/21/22 10:35 05/21/22 10:35 05/21/22 10:35 05/21/22 10:35 Oxygen Delivery Method Room Air Weight: 89 lb 8.123 oz Body Mass Index (BMI) 14.8 Intake & Output: Intake and Output for Last 24 Hours 05/19/22 05/20/22 05/21/22 23:59 23:59 23:59 Intake Total 1050 / 1050 2469.5 / 2469.5 1322.75 / 1322.75 Output Total 125 / 125 Balance 1050 / 1050 2469.5 / 2469.5 1197.75 / 1197.75 Medical Nutrition Assessment Dietitian: Malnutrition Criteria Met Start: 05/20/22 10:08 Freq: Status: Active Protocol: Document 05/20/22 10:08 LIZ (Rec: 05/20/22 10:08 LIZ [id number]) Nutrition Malnutrition Evidence of Malnutrition Exists Yes Malnutrition (severe): Chronic Evidenced By Suboptimal Energy Intake ( Severe),Weight Loss (Severe), Physical Changes (Severe) Clinical Problem Chronic Disease or Condition Related Malnutrition Etiology severe malnutrition r/t inadequate energy intake Signs/Symptoms as evidenced by po intake meeting <75% of energy needs x >3 months; 14.8% unintended wt loss x 5 months and fat/ muscle loss in face (orbitals, temporal, buccal), torso ( scapula/clavicle), arms and legs (triceps, quads). Status Active Problem Recommendation Dietitian Recommendations/Changes As medically able, rec FUNMILAYO to liberal regular d/t signs/ symptoms of malnutrition Rec change ensure clear 4 oz 4x/day w/ medpass to ensure plus high protein when diet advanced to full liquids Will provide 8 oz ensure clear tid w/ meals while on liquid diet, once advanced to solids, will change to 8 oz CIB w/ B, ensure pudding w/ L and magic cup w/ D for increased nutrition if consumed. Lab / Micro Data Result Diagrams: 05/21/22 06:40 05/21/22 06:40 Labs: Laboratory Results - last 24 hr 05/19/22 17:39: Diff Path Review Reviewed 05/20/22 04:48: Magnesium 0.3 L* 05/20/22 06:40: Magnesium Cancelled 05/20/22 15:35: Magnesium < 0.3 L* 05/20/22 21:45: Magnesium Cancelled 05/21/22 06:40: WBC 10.9, RBC 3.91 L, Hgb 13.0, Hct 40.0, MCV 102.3 H, MCH 33.2 H, MCHC 32.5, RDW Std Deviation 47.8 H, RDW Coeff of Rosa 12.7, Plt Count 390, MPV 10.0, Immature Gran % (Auto) 0.600, Neut % (Auto) 79.8 H, Lymph % (Auto) 12.4 L, [place] % (Auto) 6.3, Eos % (Auto) 0.5, Baso % (Auto) 0.4, Absolute Neuts (auto) 8.7 H, Absolute Lymphs (auto) 1.34, Nucleated RBC % 0 05/21/22 06:40: Sodium 141, Potassium 3.4 L, Chloride 103, Carbon Dioxide 29.0, Anion Gap 9, BUN 16, Creatinine 0.54 L, Estim Creat Clear Calc 32.59, Est GFR (MDRD) Af Amer 142, Est GFR (MDRD) Non-Af 117, BUN/Creatinine Ratio 29.5 H, Glucose 87, Calcium 7.6 L, Total Bilirubin 0.40, AST 51 H, ALT 39, Alkaline Ph osphatase 107, Total Protein 7.6, Albumin 2.6 L, Globulin 5.0 H, Albumin/Globulin Ratio 0.5 L 05/21/22 06:40: Magnesium 1.5 L Physical Exam Const alert, oriented x3 and no apparent distress Constitutional Narrative: very frail HEENT head/scalp atraumatic, moist oral mucous membranes and oropharynx normal HEENT Narrative: right mandible swollen, nontender, fluctuant., very poor dentition. Head and Scalp: normocephalic Mouth: oral and palatal mucosa normal Eyes PERRL, EOMs intact bilaterally and conjunctivae normal Neck no lymphadenopathy and supple Resp normal respiratory effort, no retractions, no use of accessory muscles and clear to auscultation bilaterally Cardio regular rate, regular rhythm, S1 normal heart sound, S2 normal heart sound and no murmurs GI normal to inspection, nondistended, normoactive bowel sounds, soft to palpation and non-tender Extremity normal to inspection, full ROM and no clubbing, cyanosis or edema Neuro oriented x3, CN's II-XII intact bilaterally, moves all extremities and no focal motor deficits Sensorium / Orientation: awake and alert Motor Exam: strength 5/5 throughout Psych affect normal Assessment & Plan Assessment/Plan (1) Failure to thrive in adult: (2) Debility: (3) Dental abscess: PLAN: Plan #Adult failure to thrive * patient very weak and frail * lives at home, but unable to care for herself. * PT/OT on board. * Fall precautions * #Right mandibular abscess * abscess now draining into oral cavity * on IV unasyn * Dr Bojorquez to see patient today, per my discussion with him yesterday * #Multiple electrolyte abnormalities * Was, hypocalcemic and hypomagnesemic yesterday. This will replace aggressively. * Magnesium is 1.5. Will replace. * Potassium is also 3.4 today. Replace. * #Severe protein calorie malnutrition: As evidenced by a BMI of 14.9. Dietitian on board. #COPD: not in exacerbation. On breathing treatment with bronchodilators. #GERd: on PPI #Nicotine dependence: counseled to quit. On Nicotine patch 21mg daily. #History of breast cancer: on anastrozole #CAD: on aspirin, plavix and statin DVT prophylaxis: lovenox Disposition: will likely need placement Charges/Coding Visit Charges Inpatient E&M: 54455 Subs Hosp L2
[2022-05-21] MEDS: Magnesium Sulfate 4gm/100mL 4 GM/100 ML IV.SOLN. IV (14:27)
[2022-05-21] MEDS: Atorvastatin Calcium 20 MG Tablet PO (20:04)
[2022-05-21] MEDS: MELATONIN 3 MG TABLET PO (20:04)
[2022-05-21] MEDS: 0.9% Saline Lock 10 ML Syringe IV (20:05)
[2022-05-21] MEDS: Clopidogrel Bisulfate 75 MG Tablet PO (20:05)
[2022-05-21] MEDS: Pantoprazole Sodium 20 MG Tablet PO (20:05)
[2022-05-22] VITALS (7 sets, daily range): BP systolic 90–121; BP diastolic 59–76; PULSE 83–94; RESP 18–20; TEMP 36.5–37.2; O2SAT 91–97
[2022-05-22 06:07] LABS: Absolute Lymphocyte Count 1.35 X10^3/uL (0.83-4.51); Absolute Neutrophil Count 6.7 X10^3/uL (2.0-7.7); Basophil# 0.04 X10^3/uL; Basophil% 0.4 % (0-1); Eosinophil# 0.08 X10^3/uL; Eosinophils% 0.9 % (0-5); Hematocrit 32.9 % (37-47); Hemoglobin 10.5 g/dL (12.0-15.0); Lymphocyte # 1.35 X10^3/ul (0.83-4.51); Mean Corp Hgb Conc 31.9 g/dL (32-36); Mean Corpuscular Hgb 33.3 pg (27.0-32.0); Mean Corpuscular Volume 104.4 fL (81-99); Mean Platelet Vol. 9.9 fl (6.2-12.0); Monocyte# 0.72 X10^3/uL; NRBC Flagged by Analyzer 0 % (0-5); Neutrophil # 6.71 X10^3/uL (2.7-7.7); Neutrophil % 74.8 % (47-70); Platelet Count 339 K/mm3 (150-450); RBC Distribution Width CV 12.7 % (11.6-14.6); RBC Distribution Width SD 48.1 fl (35.1-43.9); Red Blood Count 3.15 M/mm3 (4.2-5.4)
[2022-05-22 06:32] LABS: ALB/GLOB Ratio 0.5 RATIO (0.9-2.4); AST(SGOT) 37 U/L (15-37); Alanine Aminotransfer ALT/SGPT 28 U/L (13-56); Albumin, Serum 2.1 g/dL (3.2-5.0); Alkaline Phosphatase 75 U/L (45-117); Anion Gap 8 (5-15); BUN 12 mg/dL (7-18); BUN/Creat Ratio 24.2 RATIO (10-20); Calcium,Total 7.6 mg/dL (8.5-10.1); Chloride 105 mmol/L (98-107); EST Glomerular Filtration Rate 130 mL/min (>60); Est Glom Filt Rate - Afr Amer 158 mL/min (>60); Estimated Creatinine Clearance 32.59 ml/min; Globulin 4.1 g/dL (2.2-4.2); Glucose 92 mg/dL (74-106); Protein, Total 6.2 g/dL (6.4-8.2); Sodium Level 142 mmol/L (136-145)
[2022-05-22] MEDS: Menthol/Lanolin/Calamine/Znox 113 GM Tube 1 APPLIC TOPICAL ×3 (06:53→20:30)
[2022-05-22] MEDS: Megestrol 40 MG Tablet 80 MG PO ×3 (06:53→20:30)
[2022-05-22] MEDS: Lactated Ringers 1,000 ML 75 ML IV ×2 (06:54→10:42)
[2022-05-22 08:09] LABS: Magnesium 1.9 mg/dL (1.6-2.6)
[2022-05-22] MEDS: Potassium Chloride Oral Tablet 20 MEQ 60 MEQ PO (08:23)
[2022-05-22] MEDS: Enoxaparin 40 MG/0.4 ML Syringe SC (08:26)
[2022-05-22] MEDS: Meloxicam 15 MG Tablet PO (08:26)
[2022-05-22] MEDS: Anastrozole 1 MG TABLET PO (08:28)
[2022-05-22] MEDS: Aspirin E.C. 81 MG Tablet PO (08:29)
[2022-05-22] MEDS: Potassium Chloride Oral Tablet 20 MEQ 40 MEQ PO (08:29)
--- NOTE | 2022-05-22 10:33 | PN.HOSP_ITS ---
Reason for Visit Reason for Visit: Diagnoses Unspecified protein-calorie malnutrition (05/19/22) Dehydration (05/19/22) Nicotine dependence, cigarettes, uncomplicated (05/19/22) Periapical abscess without sinus (05/19/22) Other malaise (05/19/22) Adult failure to thrive (05/19/22) Subjective Subjective Patient seen and examined. She had no active complaints today and had an uneventful night. Review of systems is otherwise negative. Objective Data Objective Data Vital Signs: Vital Signs Temp Pulse Resp BP Pulse Ox O2 Del Method 97.9 F 83 18 112/76 95 Room Air 05/22/22 08:19 05/22/22 08:19 05/22/22 08:19 05/22/22 08:19 05/22/22 08:19 05/22/22 08:19 Oxygen Delivery Method Room Air Weight: 89 lb 8.123 oz Body Mass Index (BMI) 14.8 Intake & Output: Intake and Output for Last 24 Hours 05/20/22 05/21/22 05/22/22 23:59 23:59 23:59 Intake Total 2469.5 / 2469.5 3401.75 / 3401.75 112 / 112 Output Total 125 / 125 Balance 2469.5 / 2469.5 3276.75 / 3276.75 112 / 112 Medical Nutrition Assessment Dietitian: Malnutrition Criteria Met Start: 05/20/22 10: 08 Freq: Status: Active Protocol: Document 05/20/22 10:08 LIZ (Rec: 05/20/22 10:08 LIZ [id number]) Nutrition Malnutrition Evidence of Malnutrition Exists Yes Malnutrition (severe): Chronic Evidenced By Suboptimal Energy Intake ( Severe),Weight Loss (Severe), Physical Changes (Severe) Clinical Problem Chronic Disease or Condition Related Malnutrition Etiology severe malnutrition r/t inadequate energy intake Signs/Symptoms as evidenced by po intake meeting <75% of energy needs x >3 months; 14.8% unintended wt loss x 5 months and fat/ muscle loss in face (orbitals, temporal, buccal), torso ( scapula/clavicle), arms and legs (triceps, quads). Status Active Problem Recommendation Dietitian Recommendations/Changes As medically able, rec FUNMILAYO to liberal regular d/t signs/ symptoms of malnutrition Rec change ensure clear 4 oz 4x/day w/ medpass to ensure plus high protein when diet advanced to full liquids Will provide 8 oz ensure clear tid w/ meals while on liquid diet, once advanced to solids, will change to 8 oz CIB w/ B, ensure pudding w/ L and magic cup w/ D for increased nutrition if consumed. Lab / Micro Data Result Diagrams: 05/22/22 05:29 05/22/22 05:29 Labs: Laboratory Results - last 24 hr 05/20/22 06:40: Magnesium Cancelled 05/22/22 05:29: WBC 9.0, RBC 3.15 L, Hgb 10.5 L, Hct 32.9 L, MCV 104.4 H, MCH 33.3 H, MCHC 31.9 L, RDW Std Deviation 48.1 H, RDW Coeff of Rosa 12.7, Plt Count 339, MPV 9.9, Immature Gran % (Auto) 0.900, Neut % (Auto) 74.8 H, Lymph % (Auto) 15.0 L, [place] % (Auto) 8.0, Eos % (Auto) 0.9, Baso % (Auto) 0.4, Absolute Neuts (auto) 6.7, Absolute Lymphs (auto) 1.35, Nucleated RBC % 0 05/22/22 05:29: Sodium 142, Potassium 3.0 L, Chloride 105, Carbon Dioxide 29.0, Anion Gap 8, BUN 12, Creatinine 0.50 L, Estim Creat Clear Calc 32.59, Est GFR (MDRD) Af Amer 158, Est GFR (MDRD) Non-Af 130, BUN/Creatinine Ratio 24.2 H, Glucose 92, Calcium 7.6 L, Total Bilirubin 0.60, AST 37, ALT 28, Alkaline Phosphatase 75, Total Protein 6.2 L, Albumin 2.1 L, Globulin 4.1, Albumin/Globulin Ratio 0.5 L 05/22/22 05:29: Magnesium 1.9 Physical Exam Const alert, oriented x3 and no apparent distress Constitutional Narrative: very frail HEENT head/scalp atraumatic, moist oral mucous membranes and oropharynx normal HEENT Narrative: very poor dentition, right mandibular jaw swelling, nontender. no differential warmth Head and Scalp: normocephalic Eyes PERRL, EOMs intact bilaterally and conjunctivae normal Neck no lymphadenopathy and supple Resp normal respiratory effort, no retractions, no use of accessory muscles and clear to auscultation bilaterally Cardio regular rate, regular rhythm, S1 normal heart sound, S2 normal heart sound and no murmurs GI normal to inspection, nondistended, normoactive bowel sounds, soft to palpation and non-tender Extremity normal to inspection, full ROM and no clubbing, cyanosis or edema Neuro oriented x3, CN's II-XII intact bilaterally, moves all extremities and no focal motor deficits Sensorium / Orientation: awake and alert Motor Exam: strength 5/5 throughout Psych affect normal Assessment & Plan Assessment/Plan (1) Failure to thrive in adult: (2) Debility: (3) Dental abscess: PLAN: Plan #Adult failure to thrive * patient very weak and frail * lives at home, but unable to care for herself. * PT/OT on board. * Fall precautions * #Right mandibular abscess * abscess now draining into oral cavity * on IV unasyn * Dr Bojorquez reviewed patient yesterday; once patient is stabilised and discharged, to follow up with Dr Bojorquez to get teeth removed. If she can tolerate local anesthesia, it will be done in his office. If she doesnt tolerate oral anesthesia, will need it done under general anesthesia. * * #Multiple electrolyte abnormalities * potassium is 3 today. Magnesium is 1.9. * Will replace potassium * * #Severe protein calorie malnutrition: As evidenced by a BMI of 14.9. Dietitian on board. #COPD: not in exacerbation. On breathing treatment with bronchodilators. #GERd: on PPI #Nicotine dependence: counseled to quit. On Nicotine patch 21mg daily. #History of breast cancer: on anastrozole #CAD: on aspirin, plavix and statin DVT prophylaxis: lovenox Disposition: awaiting placement Charges/Coding Visit Charges Inpatient E&M: 84423 Subs Hosp L2
[2022-05-22] MEDS: Midodrine HCl 5 MG Tablet 10 MG PO (10:42)
[2022-05-22] MEDS: Budesonide Respules 0.5 MG/2 ML AMPUL.NEB. INHALATION (19:12)
[2022-05-22] MEDS: Clopidogrel Bisulfate 75 MG Tablet PO (20:29)
[2022-05-22] MEDS: Atorvastatin Calcium 20 MG Tablet PO (20:30)
[2022-05-22] MEDS: MELATONIN 3 MG TABLET PO (20:30)
[2022-05-22] MEDS: Pantoprazole Sodium 20 MG Tablet PO (20:30)
[2022-05-23] VITALS (11 sets, daily range): BP systolic 99–106; BP diastolic 76–83; PULSE 93–102; RESP 16–22; TEMP 36.3–37.2; O2SAT 88–97
[2022-05-23] MEDS: Ipratropium/Albuterol Sulfate 3 ML AMPUL.NEB INHALATION ×2 (03:07→19:33)
[2022-05-23] MEDS: Alendronate Sodium 70 MG Tablet PO (04:02)
[2022-05-23] MEDS: Menthol/Lanolin/Calamine/Znox 113 GM Tube 1 APPLIC TOPICAL ×3 (04:02→23:16)
[2022-05-23] MEDS: Lactated Ringers 1,000 ML 75 ML IV ×2 (04:02→18:29)
[2022-05-23] MEDS: Megestrol 40 MG Tablet 80 MG PO ×3 (04:02→23:16)
[2022-05-23 06:30] LABS: Absolute Lymphocyte Count 1.98 X10^3/uL (0.83-4.51); Absolute Neutrophil Count 8.5 X10^3/uL (2.0-7.7); Basophil# 0.04 X10^3/uL; Basophil% 0.3 % (0-1); Eosinophil# 0.12 X10^3/uL; Hematocrit 33.5 % (37-47); Hemoglobin 10.5 g/dL (12.0-15.0); Lymphocyte # 1.98 X10^3/ul (0.83-4.51); Lymphocyte % 17.1 % (19-41); Mean Corp Hgb Conc 31.3 g/dL (32-36); Mean Corpuscular Hgb 33.5 pg (27.0-32.0); Monocyte# 0.81 X10^3/uL; NRBC Flagged by Analyzer 0 % (0-5); Neutrophil # 8.49 X10^3/uL (2.7-7.7); Neutrophil % 73.6 % (47-70); Platelet Count 320 K/mm3 (150-450); RBC Distribution Width CV 12.7 % (11.6-14.6); Red Blood Count 3.13 M/mm3 (4.2-5.4); White Blood Count 11.6 K/mm3 (4.4-11.0)
[2022-05-23 07:07] LABS: ALB/GLOB Ratio 0.5 RATIO (0.9-2.4); AST(SGOT) 40 U/L (15-37); Alanine Aminotransfer ALT/SGPT 29 U/L (13-56); Albumin, Serum 2.2 g/dL (3.2-5.0); Alkaline Phosphatase 76 U/L (45-117); Anion Gap 5 (5-15); BUN 12 mg/dL (7-18); BUN/Creat Ratio 21.6 RATIO (10-20); Calcium,Total 8.4 mg/dL (8.5-10.1); Chloride 110 mmol/L (98-107); Creatinine, Serum 0.56 mg/dL (0.55-1.02); EST Glomerular Filtration Rate 114 mL/min (>60); Est Glom Filt Rate - Afr Amer 138 mL/min (>60); Estimated Creatinine Clearance 32.59 ml/min; Globulin 4.1 g/dL (2.2-4.2); Glucose 90 mg/dL (74-106); Potassium 4.4 mmol/L (3.5-5.1); Protein, Total 6.3 g/dL (6.4-8.2); Sodium Level 143 mmol/L (136-145)
[2022-05-23] MEDS: Potassium Chloride Oral Tablet 20 MEQ 40 MEQ PO (08:35)
[2022-05-23] MEDS: Aspirin E.C. 81 MG Tablet PO (08:35)
[2022-05-23] MEDS: Midodrine HCl 5 MG Tablet 10 MG PO (08:35)
[2022-05-23] MEDS: Meloxicam 15 MG Tablet PO (08:35)
[2022-05-23] MEDS: Enoxaparin 40 MG/0.4 ML Syringe SC (08:35)
[2022-05-23] MEDS: Anastrozole 1 MG TABLET PO (08:37)
--- NOTE | 2022-05-23 10:12 | PN.HOSP_ITS ---
Reason for Visit Reason for Visit: Diagnoses Unspecified protein-calorie malnutrition (05/19/22) Dehydration (05/19/22) Nicotine dependence, cigarettes, uncomplicated (05/19/22) Periapical abscess without sinus (05/19/22) Other malaise (05/19/22) Adult failure to thrive (05/19/22) Subjective Subjective No issues overnight, doing well. She did have an episode overnight of being confused where she thought she was in the basement but she is AO x3 Objective Data Objective Data Vital Signs: Vital Signs Temp Pulse Resp BP Pulse Ox O2 Del Method O2 Flow Rate 99.0 F 98 18 99/83 H 94 Room Air 2 05/23/22 08:32 05/23/22 08:32 05/23/22 08:32 05/23/22 08:32 05/23/22 08:32 05/23/22 08:32 05/23/22 08:15 Oxygen Flow Rate (L/min) 2 Oxygen Delivery Method Room Air Weight: 89 lb 8.123 oz Body Mass Index (BMI) 14.8 Intake & Output: Intake and Output for Last 24 Hours 05/22/22 05/23/22 05/24/22 03:59 03:59 03:59 Intake Total 3289.75 / 3289.75 2327 / 2327 112 / 112 Output Total 125 / 125 Balance 3164.75 / 3164.75 2327 / 2327 112 / 112 Medical Nutrition Assessment Dietitian: Malnutrition Criteria Met Start: 05/20/22 10:08 Freq: Status: Active Protocol: Document 05/20/22 10:08 LIZ (Rec: 05/20/22 10:08 LIZ [id number]) Nutrition Malnutrition Evidence of Malnutrition Exists Yes Malnutrition (severe): Chronic Evidenced By Suboptimal Energy Intake ( Severe),Weight Loss (Severe), Physical Changes (Severe) Clinical Problem Chronic Disease or Condition Related Malnutrition Etiology severe malnutrition r/t inadequate energy intake Signs/Symptoms as evidenced by po intake meeting <75% of energy needs x >3 months; 14.8% unintended wt loss x 5 months and fat/ muscle loss in face (orbitals, temporal, buccal), torso ( scapula/clavicle), arms and legs (triceps, quads). Status Active Problem Recommendation Dietitian Recommendations/Changes As medically able, rec FUNMILAYO to liberal regular d/t signs/ symptoms of malnutrition Rec change ensure clear 4 oz 4x/day w/ medpass to ensure plus high protein when diet advanced to full liquids Will provide 8 oz ensure clear tid w/ meals while on liquid diet, once advanced to solids, will change to 8 oz CIB w/ B, ensure pudding w/ L and magic cup w/ D for increased nutrition if consumed. Lab / Micro Data Result Diagrams: 05/23/22 05:30 05/23/22 05:30 Labs: Laboratory Results - last 24 hr 05/23/22 05:30: WBC 11.6 H, RBC 3.13 L, Hgb 10.5 L, Hct 33.5 L, MCV 107.0 H, MCH 33.5 H, MCHC 31.3 L, RDW Std Deviation 50.0 H, RDW Coeff of Rosa 12.7, Plt Count 320, MPV 10.0, Immature Gran % (Auto) 1.000 H, Neut % (Auto) 73.6 H, Lymph % (Auto) 17.1 L, [place] % (Auto) 7.0, Eos % (Auto) 1.0, Baso % (Auto) 0.3, Absolute Neuts (auto) 8.5 H, Absolute Lymphs (auto) 1.98, Nucleated RBC % 0 05/23/22 05:30: Sodium 143, Potassium 4.4, Chloride 110 H, Carbon Dioxide 28.0, Anion Gap 5, BUN 12, Creatinine 0.56, Estim Creat Clear Calc 32.59, Est GFR (MDRD) Af Amer 138, Est GFR (MDRD) Non-Af 114, BUN/Creatinine Ratio 21.6 H, Glucose 90, Calcium 8.4 L, Total Bilirubin 0.50, AST 40 H, ALT 29, Alkaline Phosphatase 76, Total Protein 6.3 L, Albumin 2.2 L, Globulin 4.1, Albumin/Globulin Ratio 0.5 L Micro: Microbiology 05/19/22 21:52 Blood Culture (Wb) - Anticubital Right Blood Culture - Preliminary No growth in 48 hours. 05/19/22 21:52 Blood Culture (Wb) - Anticubital Left Blood Culture - P reliminary No growth in 48 hours. Physical Exam Narrative General: Alert, Oriented x3, Cooperative, No apparent distress HEENT: Atraumatic, PERRLA, EOMI, Normocephalic Oral: Moist Mucosa Neck: Supple, No JVD Lungs: Diminished, Normal air movement, No rhonchi, No wheeze, No rales Cardiovascular: Regular rate, Regular Rhythm, Normal S1, Normal S2, No murmurs Abdomen: Soft, Non Tender, Non-Distended, No Hepato-splenomegaly Extremities: No edema, Capillary Refill Less than 3 Seconds Skin: No rashes, No breakdown Musculoskeletal: No Tenderness to Palpation of Joints or Extremities Neurological: Cranial nerves II-XII grossly intact, Motor Exam 5/5 strength throughout, Sensory exam intact to light touch and pain Psych/Mental Status: Normal Affect, Appropriate Assessment & Plan Assessment/Plan (1) Failure to thrive in adult: (2) Debility: (3) Dental abscess: PLAN: Plan #Adult failure to thrive/severe protein calorie malnutrition * patient very weak and frail * lives at home, but unable to care for herself. * PT/OT on board. * Fall precautions * Appreciate nutrition recommendations #Right mandibular abscess * abscess now draining into oral cavity * on IV unasyn * Dr Bojorquez reviewed patient yesterday; once patient is stabilised and discharged, to follow up with Dr Bojorquez to get teeth removed. If she can tolerate local anesthesia, it will be done in his office. If she doesnt tolerate oral anesthesia, will need it done under general anesthesia. #COPD: not in exacerbation. On breathing treatment with bronchodilators. #GERD: on PPI #Nicotine dependence: counseled to quit. On Nicotine patch 21mg daily. #History of breast cancer: on anastrozole #CAD: on aspirin, plavix and statin DVT: Lovenox Charges/Coding Visit Charges Inpatient E&M: 85129 Subs Hosp L2
--- NOTE | 2022-05-23 14:12 | CASEMGMT ---
Social work SW received message from [employer] requesting notes indicating pt medically ready for D/c and therapy notes. SNF stated insurance asing for this information and also requesting information about if pt will be on IV antibiotics. GUERDA conferred with [employer]can[employer] charger and there is no indication that pt will need IVs. Pt has not been seen by ID and it is not ordered. GUERDA informed SNF of this information and sent updated clinicals. MARINA Reyes
[2022-05-23] MEDS: Budesonide Respules 0.5 MG/2 ML AMPUL.NEB. INHALATION (19:33)
[2022-05-23] MEDS: Pantoprazole Sodium 20 MG Tablet PO (23:16)
[2022-05-23] MEDS: Clopidogrel Bisulfate 75 MG Tablet PO (23:16)
[2022-05-23] MEDS: MELATONIN 3 MG TABLET PO (23:16)
[2022-05-23] MEDS: Atorvastatin Calcium 20 MG Tablet PO (23:16)
[2022-05-24 04:47] VITALS: BP 117/83; PULSE 104; RESP 22; TEMP 36.8; O2SAT 92
[2022-05-24] MEDS: Megestrol 40 MG Tablet 80 MG PO (04:55)
[2022-05-24] MEDS: Menthol/Lanolin/Calamine/Znox 113 GM Tube 1 APPLIC TOPICAL (05:02)
[2022-05-24 05:04] VITALS: PULSE 103; RESP 24; O2SAT 94
[2022-05-24 05:40] VITALS: PULSE 89; RESP 26
[2022-05-24] MEDS: Budesonide Respules 0.5 MG/2 ML AMPUL.NEB. INHALATION (05:40)
[2022-05-24] MEDS: Ipratropium/Albuterol Sulfate 3 ML AMPUL.NEB INHALATION (05:40)
[2022-05-24 06:01] LABS: Absolute Lymphocyte Count 2.66 X10^3/uL (0.83-4.51); Absolute Neutrophil Count 7.9 X10^3/uL (2.0-7.7); Basophil# 0.07 X10^3/uL; Basophil% 0.6 % (0-1); Eosinophils% 1.7 % (0-5); Hematocrit 32.1 % (37-47); Hemoglobin 10.1 g/dL (12.0-15.0); Lymphocyte # 2.66 X10^3/ul (0.83-4.51); Lymphocyte % 22.9 % (19-41); Mean Corp Hgb Conc 31.5 g/dL (32-36); Mean Corpuscular Hgb 33.6 pg (27.0-32.0); Mean Corpuscular Volume 106.6 fL (81-99); Mean Platelet Vol. 10.2 fl (6.2-12.0); Monocyte# 0.72 X10^3/uL; Monocyte% 6.2 % (0-10); NRBC Flagged by Analyzer 0 % (0-5); Neutrophil # 7.86 X10^3/uL (2.7-7.7); Neutrophil % 67.8 % (47-70); Platelet Count 326 K/mm3 (150-450); RBC Distribution Width CV 12.9 % (11.6-14.6); RBC Distribution Width SD 49.3 fl (35.1-43.9); Red Blood Count 3.01 M/mm3 (4.2-5.4); White Blood Count 11.6 K/mm3 (4.4-11.0)
[2022-05-24 06:40] LABS: ALB/GLOB Ratio 0.6 RATIO (0.9-2.4); AST(SGOT) 42 U/L (15-37); Alanine Aminotransfer ALT/SGPT 33 U/L (13-56); Albumin, Serum 2.2 g/dL (3.2-5.0); Alkaline Phosphatase 70 U/L (45-117); Anion Gap 6 (5-15); BUN 10 mg/dL (7-18); BUN/Creat Ratio 16.2 RATIO (10-20); Chloride 109 mmol/L (98-107); Creatinine, Serum 0.62 mg/dL (0.55-1.02); EST Glomerular Filtration Rate 101 mL/min (>60); Est Glom Filt Rate - Afr Amer 122 mL/min (>60); Estimated Creatinine Clearance 32.59 ml/min; Globulin 3.9 g/dL (2.2-4.2); Glucose 92 mg/dL (74-106); Potassium 5.5 mmol/L (3.5-5.1); Protein, Total 6.1 g/dL (6.4-8.2); Sodium Level 140 mmol/L (136-145)
[2022-05-24 10:00] VITALS: BP 95/73; PULSE 98; RESP 18; TEMP 36.9; O2SAT 97
[2022-05-24] MEDS: Lactated Ringers 1,000 ML 75 ML IV (10:13)
[2022-05-24] MEDS: Meloxicam 15 MG Tablet PO (10:13)
--- NOTE | 2022-05-24 10:14 | CASEMGMT ---
Social Work [place] messaged that precert has been obtained. MD Cortez updated of this information. PLAN: LovelockMARINA Herron
[2022-05-24] MEDS: Anastrozole 1 MG TABLET PO (10:15)
[2022-05-24] MEDS: Midodrine HCl 5 MG Tablet 10 MG PO (10:16)
[2022-05-24] MEDS: Enoxaparin 40 MG/0.4 ML Syringe SC (10:16)
[2022-05-24] MEDS: Aspirin E.C. 81 MG Tablet PO (10:17)
[2022-05-24] MEDS: Potassium Chloride Oral Tablet 20 MEQ 40 MEQ PO (10:17)
[2022-05-24 10:20] VITALS: O2SAT 97
--- NOTE | 2022-05-24 10:48 | PCM.TXEXTCAR ---
Diet Diet Order/Speech Therapy: 05/21/22 12:37 Diet: Regular - General Food consistency:: Soft & Bite Sized Liquid Consistency:: Regular/Thin Is pt able to select menu?: Yes Diet Comments: 8oz EC @ meals tid - as diet advanced change to 8oz CIB @ B, MC @ L, EP @D Routine Orders/Code Status Routine Lab Work: CBC and BMP Code Status: DNRCC-A Wound(s) oral cavity per pt (site unseen): Wound Type: Abscess Therapies Physical Therapy: Eval and Treat Occupational Therapy: Eval and Treat Problem/Diagnosis (1) Failure to thrive in adult: Status: Acute Code(s): R62.7 - Adult failure to thrive (2) Debility: Status: Acute Code(s): R53.81 - Other malaise (3) Dental abscess: Status: Acute Code(s): K04.7 - Periapical abscess without sinus Plan #Adult failure to thrive/severe protein calorie malnutrition patient very weak and frail lives at home, but unable to care for herself. PT/OT on board. Fall precautions Appreciate nutrition recommendations #Right mandibular abscess abscess now draining into oral cavity on IV unasyn Dr Bojorquez reviewed patient yesterday; once patient is stabilised and discharged, to follow up with Dr Bojorquez to get teeth removed. If she can tolerate local anesthesia, it will be done in his office. If she doesnt tolerate oral anesthesia, will need it done under general anesthesia. #COPD: not in exacerbation. On breathing treatment with bronchodilators. #GERD: on PPI #Nicotine dependence: counseled to quit. On Nicotine patch 21mg daily. #History of breast cancer: on anastrozole #CAD: on aspirin, plavix and statin DVT: Lovenox Allergies/Procedures Done in Hospital Allergies alendronate sodium [From Fosamax] Adverse Reaction (Severe, Verified 02/22/22 10:49) Unknown nickel Adverse Reaction (Intermediate, Verified 02/22/22 10:49) Rash rofecoxib [From Vioxx] Adverse Reaction (Intermediate, Verified 02/22/22 10:49) Unknown iron Adverse Reaction (Mild, Verified 02/22/22 10:49) Other HEMATOCHROSIS, NOT ALLOWED IRON PRODUCTS Procedures: None Type of Care/Length of Stay Estimated LOS: Convalescent Care Less Than 30 days Type of Care Needed: Skilled Rehab Potential: Good Prognosis: Good Additional Orders/Day of Discharge Day of Discharge: 05/24/22 Dietary and Speech Recommendations Dietitian Recommendations/Changes: Continue liberal regular d/t signs/symptoms of malnutrition Will d/c ensure clear 4 oz 4x/day w/ medpass d/t pt frequent refusals. Will provide 8 oz CIB w/ B, ensure pudding w/ L and magic cup w/ D for increased nutrition if consumed. Discharge Plan Admission Admit Date/Time: 05/19/22 21:49 Attending Provider: Demetrio Cortez Primary Care Provider: KARLY PELAYO Consulting Providers: Sherwin Valentino ; Michele Bojorquez ; Stephanie Don Discharge Orders/Prescriptions Prescriptions: New megestrol 40 mg Tablet 80 mg PO TID Qty: 0 0RF amoxicillin-pot clavulanate 875-125 mg tablet 1 tab PO BID 6 Days Qty: 12 0RF Continued omeprazole 20 mg capsule,delayed release(DR/EC) 20 mg PO QHS Label Comments: REFLUX Rx Instructions: Ropm-vpl-dfjghor albuterol sulfate [Ventolin HFA] 90 mcg/actuation HFA aerosol inhaler 2 puff inhalation Q4H PRN (Reason: shortness of breath or wheezing) Qty: 18 6RF atorvastatin 20 MG tablet 20 mg PO QHS Label Comments: CHOLESTEROL meloxicam 15 MG tablet 15 mg PO DAILY Label Comments: ARTHRITIS clopidogrel 75 MG tablet 75 mg PO QHS Label Comments: WAS TOLD TO ASK ABOUT STOPPING,STENTS aspirin 81 MG tablet,delayed release (DR/EC) 81 mg PO DAILY Label Comments: WS TOLD TO ASK ABOUT STOPPING FOR SURGERY ipratropium-albuterol 1 PUFF inhaler 1 puff INHALATION PRN PRN (Reason: Wheezing) acetaminophen [Tylenol Extra Strength] 500 MG tablet 1,000 mg PO DAILY alendronate 70 MG tablet 70 mg PO MO anastrozole 1 mg tablet 1 mg PO DAILY fluticasone propion-salmeterol 250-50 mcg/dose blister with device 1 ea INHALATION PRN PRN (Reason: breathing) midodrine 5 mg tablet 10 mg PO DAILY Referrals / Follow Up: Michele Bojorquez DDS [Med Staff - Active Staff] - Within 2 Weeks OLDER,KARLY, EARLY YEARS TEACHER-C [Primary Care Provider] - Within 1 Week Disposition Disposition (needs filled in before D/C Order can be placed): Nursing Home Facility
--- NOTE | 2022-05-24 11:27 | PHA.DC.MR ---
Pharmacy Service has performed discharge medication reconciliation for this patient. The patient's discharge medication list was reviewed for discrepancies and discrepancies were resolved. Home Medications aspirin 81 mg tablet,delayed release 81 mg PO DAILY heart health 11/10/16 atorvastatin 20 mg tablet 20 mg PO QHS cholesterol lowering 11/10/16 clopidogrel 75 mg tablet 75 mg PO QHS heart health 11/10/16 ipratropium 20 mcg-albuterol 100 mcg/actuation mist for inhalation 1 puff inhalation PRN PRN Wheezing 11/10/16 meloxicam 15 mg tablet 15 mg PO DAILY arthritis 11/10/16 acetaminophen 500 mg tablet (Tylenol Extra Strength) 1,000 mg PO DAILY pain 12/02/16 alendronate 70 mg tablet 70 mg PO MO bone health 12/29/16 anastrozole 1 mg tablet 1 mg PO DAILY hormone therapy 09/29/21 fluticasone 250 mcg-salmeterol 50 mcg/dose blistr powdr for inhalation 1 ea inhalation PRN PRN breathing 09/29/21 midodrine 5 mg tablet 10 mg PO DAILY blood pressure 12/30/21 omeprazole 20 mg capsule,delayed release 20 mg PO QHS acid reflux 02/22/22 albuterol sulfate 90 mcg/actuation aerosol inhaler (Ventolin HFA) 2 puff inhalation Q4H PRN shortness of breath or wheezing #18 grams 04/06/22 amoxicillin 875 mg-potassium clavulanate 125 mg tablet 1 tab PO BID 6 days #12 tabs 05/24/22 megestrol 40 mg tablet 80 mg PO TID #0 tabs 05/24/22
--- NOTE | 2022-05-24 12:58 | DS.PCM_ITS ---
Providers Date of Admission: 05/19/22 Primary Care Physician: KARLY PELAYO CNC SPECIALIST-C Consultations 05/19/22 23:41 Consult: Oral Surgeon Routine Consulting Provider: Michele Bojorquez Reason for Consult: R mandibular abscess EMERGENT Consult: No MD Notified: Yes Date Notified: 05/20/22 Time Notified: 08:40 Method of Notification: paged Comments:: He will see patient tomorrow 05/21. Dr. Don aware. Reason For Visit: ADULT FAILURE TO THRIVE Diagnosis Discharge Diagnosis (1) Failure to thrive in adult: Status: Acute Code(s): R62.7 - Adult failure to thrive (2) Debility: Status: Acute Code(s): R53.81 - Other malaise (3) Dental abscess: Status: Acute Code(s): K04.7 - Periapical abscess without sinus Plan #Adult failure to thrive/severe protein calorie malnutrition * patient very weak and frail * lives at home, but unable to care for herself. * PT/OT on board. * Fall precautions * Appreciate nutrition recommendations #Right mandibular abscess * abscess now draining into oral cavity * on IV unasyn * Dr Bojorquez reviewed patient yesterday; once patient is stabilised and discharged, to follow up with Dr Bojorquez to get teeth removed. If she can tolerate local anesthesia, it will be done in his office. If she doesnt tolerate oral anesthesia, will need it done under general anesthesia. #COPD: not in exacerbation. On breathing treatment with bronchodilators. #GERD: on PPI #Nicotine dependence: counseled to quit. On Nicotine patch 21mg daily. #History of breast cancer: on anastrozole #CAD: on aspirin, plavix and statin DVT: Lovenox Medications at Discharge Home Medications aspirin 81 mg tablet,delayed release 81 mg PO DAILY heart health 11/10/16 atorvastatin 20 mg tablet 20 mg PO QHS cholesterol lowering 11/10/16 clopidogrel 75 mg tablet 75 mg PO QHS [facility] 11/10/16 ipratropium 20 mcg-albuterol 100 mcg/actuation mist for inhalation 1 puff inhalation PRN PRN Wheezing 11/10/16 meloxicam 15 mg tablet 15 mg PO DAILY arthritis 11/10/16 acetaminophen 500 mg tablet (Tylenol Extra Strength) 1,000 mg PO DAILY pain 12/02/16 alendronate 70 mg tablet 70 mg PO MO bone health 12/29/16 anastrozole 1 mg tablet 1 mg PO DAILY hormone therapy 09/29/21 fluticasone 250 mcg-salmeterol 50 mcg/dose blistr powdr for inhalation 1 ea inhalation PRN PRN breathing 09/29/21 midodrine 5 mg tablet 10 mg PO DAILY blood pressure 12/30/21 omeprazole 20 mg capsule,delayed release 20 mg PO QHS acid reflux 02/22/22 albuterol sulfate 90 mcg/actuation aerosol inhaler (Ventolin HFA) 2 puff inhalation Q4H PRN shortness of breath or wheezing #18 grams 04/06/22 amoxicillin 875 mg-potassium clavulanate 125 mg tablet 1 tab PO BID 6 days #12 tabs 05/24/22 megestrol 40 mg tablet 80 mg PO TID #0 tabs 05/24/22 Hospital Course Operations None Procedures None Summary of Care Provided Minutes Spent on Discharge: 36 Hospital Course: Per HPI:MARICEL FLOWERS, is a 72 F with a history of COPD and tobacco abuse who presents to the emergency department because she is unable to care for self.? Also patient is too weak? to walk.? She reported her weakness has been going on for about 2 weeks.? 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 However, her family is planning to put the mentally handicapped child in the facility as patient is unable to take care of the child. Also patient has an abscess in her right mandible.? For this abscess she saw Dr. Fleming at the? office.? When she went home the abscess started draining from her face.? Now the abscess is draining from her jaw into her oral cavity. She reports poor appetite.? Poor appetite is unrelated to the abscess in the mouth.? She just said she does not have the urge to eat. Hospital Course: #Adult failure to thrive/severe protein calorie malnutrition * patient very weak and frail will likely need placed based on PT and OT e valuation * lives at home, but unable to care for herself. * PT/OT on board. * Fall precautions * Appreciate nutrition recommendations * I discussed with her the plan for discharge to a custodial facility today to undergo physical therapy and she expressed understanding of the risk benefits of going and would like to go today. #Right mandibular abscess * abscess now draining into oral cavity * on IV unasyn, will plan to discharge on Augmentin for another 6 days for 10- day total course. If she is able she should follow-up with Dr. Bojorquez as an outpatient * Dr Bojorquez reviewed patient yesterday; once patient is stabilised and discharged, to follow up with Dr Bojorquez to get teeth removed. If she can tolerate local anesthesia, it will be done in his office. If she doesnt tolerate oral anesthesia, will need it done under general anesthesia. #COPD: not in exacerbation. On breathing treatment with bronchodilators. #GERD: on PPI #Nicotine dependence: counseled to quit. On Nicotine patch 21mg daily. #History of breast cancer: on anastrozole #CAD: on aspirin, plavix and statin Physical Exam Narrative General: Alert, Oriented x3, Cooperative, No apparent distress HEENT: Atraumatic, PERRLA, EOMI, Normocephalic, right jaw swelling Oral: Moist Mucosa Neck: Supple, No JVD Lungs: Diminished, Normal air movement, No rhonchi, No wheeze, No rales Cardiovascular: Regular rate, Regular Rhythm, Normal S1, Normal S2, No murmurs Abdomen: Soft, Non Tender, Non-Distended, No Hepato-splenomegaly Extremities: No edema, Capillary Refill Less than 3 Seconds Skin: No rashes, No breakdown Musculoskeletal: No Tenderness to Palpation of Joints or Extremities Neurological: Cranial nerves II-XII grossly intact, Motor Exam 5/5 strength throughout, Sensory exam intact to light touch and pain Psych/Mental Status: Normal Affect, Appropriate Medical Records Data Medical Nutrition Assessment Dietitian: Malnutrition Criteria Met Start: 05/20/22 10:08 Freq: Status: Active Protocol: Document 05/23/22 14:35 [facility] (Rec: 05/23/22 14:35 [facility] [id number]) Nutrition Malnutrition Evidence of Malnutrition Exists Yes Malnutrition (severe): Chronic Evidenced By Suboptimal Energy Intake ( Severe),Weight Loss (Severe), Physical Changes (Severe) Clinical Problem Chronic Disease or Condition Related Malnutrition Etiology severe malnutrition r/t inadequate energy intake Signs/Symptoms as evidenced by po intake meeting <75% of energy needs x >3 months; 14.8% unintended wt loss x 5 months and fat/ muscle loss in face (orbitals, temporal, buccal), torso ( scapula/clavicle), arms and legs (triceps, quads). Status Active Problem Recommendation Dietitian Recommendations/Changes Continue liberal regular d/t signs/symptoms of malnutrition Will d/c ensure clear 4 oz 4x/ day w/ medpass d/t pt frequent refusals. Will provide 8 oz CIB w/ B, ensure pudding w/ L and magic cup w/ D for increased nutrition if consumed. Weight / BMI Weight Weight: 89 lb 8.123 oz Body Mass Index (BMI) 14.8 ABG / Lab / Microbiology Data Result Diagrams: 05/24/22 04:48 05/24/22 04:48 Laboratory: Laboratory Results - last 24 hr 05/24/22 04:48: WBC 11.6 H, RBC 3.01 L, Hgb 10.1 L, Hct 32.1 L, MCV 106.6 H, MCH 33.6 H, MCHC 31.5 L, RDW Std Deviation 49.3 H, RDW Coeff of Rosa 12.9, Plt Count 326, MPV 10.2, Immature Gran % (Auto) 0.800, Neut % (Auto) 67.8, Lymph % (Auto) 22.9, [place] % (Auto) 6.2, Eos % (Auto) 1.7, Baso % (Auto) 0.6, Absolute Neuts (auto) 7.9 H, Absolute Lymphs (auto) 2.66, Nucleated RBC % 0 05/24/22 04:48: Sodium 140, Potassium 5.5 H, Chloride 109 H, Carbon Dioxide 25. 0, Anion Gap 6, BUN 10, Creatinine 0.62, Estim Creat Clear Calc 32.59, Est GFR (MDRD) Af Amer 122, Est GFR (MDRD) Non-Af 101, BUN/Creatinine Ratio 16.2, Glucose 92, Calcium 9.0, Total Bilirubin 0.40, AST 42 H, ALT 33, Alkaline Phosphatase 70, Total Protein 6.1 L, Albumin 2.2 L, Globulin 3.9, Albumin/Globulin Ratio 0.6 L Microbiology: Microbiology 05/24/22 11:25 Nasal Secretion SARS-CoV-2 Antigen (Rapid) - Final 05/19/22 21:52 Blood Culture (Wb) - Anticubital Right Blood Culture - Preliminary No growth in 48 hours. 05/19/22 21:52 Blood Culture (Wb) - Anticubital Left Blood Culture - Preliminary No growth in 48 hours. Meaningful Use Info Meaningful Use Diagnoses (Choose all that apply): None applicable Discharge Plan Admission Admit Date/Time: 05/19/22 21:49 Attending Provider: Demetrio Cortez Primary Care Provider: KARLY PELAYO Consulting Providers: Sherwin Valentino ; Michele Bojorquez ; Stephanie Don Discharge Orders/Prescriptions Prescriptions: New megestrol 40 mg Tablet 80 mg PO TID Qty: 0 0RF amoxicillin-pot clavulanate 875-125 mg tablet 1 tab PO BID 6 Days Qty: 12 0RF Continued omeprazole 20 mg capsule,delayed release(DR/EC) 20 mg PO QHS Label Comments: REFLUX Rx Instructions: [id number]-pbq-abotncr albuterol sulfate [Ventolin HFA] 90 mcg/actuation HFA aerosol inhaler 2 puff inhalation Q4H PRN (Reason: shortness of breath or wheezing) Qty: 18 6RF atorvastatin 20 MG tablet 20 mg PO QHS Label Comments: CHOLESTEROL meloxicam 15 MG tablet 15 mg PO DAILY Label Comments: ARTHRITIS clopidogrel 75 MG tablet 75 mg PO QHS Label Comments: WAS TOLD TO ASK ABOUT STOPPING,STENTS aspirin 81 MG tablet,delayed release (DR/EC) 81 mg PO DAILY Label Comments: WS TOLD TO ASK ABOUT STOPPING FOR SURGERY ipratropium-albuterol 1 PUFF inhaler 1 puff INHALATION PRN PRN (Reason: Wheezing) acetaminophen [Tylenol Extra Strength] 500 MG tablet 1,000 mg PO DAILY alendronate 70 MG tablet 70 mg PO MO anastrozole 1 mg tablet 1 mg PO DAILY fluticasone propion-salmeterol 250-50 mcg/dose blister with device 1 ea INHALATION PRN PRN (Reason: breathing) midodrine 5 mg tablet 10 mg PO DAILY Referrals / Follow Up: Michele Bojorquez DDS [Med Staff - Active Staff] - Within 2 Weeks KARLY PELAYO NP-C [Primary Care Provider] - Within 1 Week Disposition Disposition (needs filled in before D/C Order can be placed): Shelter Facility Charges/Coding Visit Charges Inpatient E&M: 50077 Disch Hosp >30min
--- NOTE | 2022-05-24 13:26 | CASEMGMT ---
Social Work? GUERDA notified pt daughter, Katrin, via phone of discharge to [facility] today. GUERDA completed 7000 convalescent form in [facility]. Set up cot transportation through [facility] for 2:00pm. GUERDA faxed all discharge orders to [facility] via [employer] and notified of discharge time. GUERDA notified pt nurse of transport time. GUERDA made copies of discharge orders and placed on pt chart. Sent original orders in envelope with pt upon discharge.?? Disposition: [facility], skilled, convalescent, level of care? MARINA Reyes?
[2022-05-24 13:45] VITALS: BP 99/72; PULSE 86; RESP 17; TEMP 37.2; O2SAT 94
--- NOTE | 2022-05-24 14:49 | NURSING ---
Report given to Sandrita ROLAND at [facility] at approximately 1400 today.
== END 2022-05-24 14:06 | disposition skilled nursing facility (03) | DRG 157 ==
LOC: ED 22:45 → MS3 05-20 07:13
PROVIDERS: Student in an Organized Health Care Education/Training Program; Admitting Provider Hospitalist; Emergency Provider Emergency Medicine; PCP Nurse Practitioner; Visit Provider Family Medicine
DX: K04.7 Periapical abscess without sinus (principal); E43 Unspecified severe protein-calorie malnutrition; K12.2 Cellulitis and abscess of mouth; Z68.1 Body mass index [BMI] 19.9 or less, adult; E83.51 Hypocalcemia; R62.7 Adult failure to thrive; J44.9 Chronic obstructive pulmonary disease, unspecified; F17.210 Nicotine dependence, cigarettes, uncomplicated; E86.0 Dehydration; I25.10 Atherosclerotic heart disease of native coronary artery without angina pectoris; K21.9 Gastro-esophageal reflux disease without esophagitis; Z95.5 Presence of coronary angioplasty implant and graft; Z79.83 Long term (current) use of bisphosphonates; R53.81 Other malaise; Z79.82 Long term (current) use of aspirin; Z66 Do not resuscitate; Z85.3 Personal history of malignant neoplasm of breast
CPT/HCPCS: 36415; 70491; 71046; 80053; 81001; 83605; 83735; 85025; 87040; 87426; 94640; 97110; 97112; 97116; 97162; 97166; 97530; 97535; 97802; 99252; 99285; J7030; J7040; J7120; Q9967; A4216; G0463; J0295; J0610

== ENCOUNTER → 2022-06-08 | Outpatient (REF) | payer MEDICARE, SELFPAY ==
[2022-06-08 10:32] LABS: Absolute Lymphocyte Count 2.18 X10^3/uL (0.83-4.51); Absolute Neutrophil Count 5.3 X10^3/uL (2.0-7.7); Basophil# 0.05 X10^3/uL; Basophil% 0.6 % (0-1); Eosinophil# 0.14 X10^3/uL; Eosinophils% 1.6 % (0-5); Hematocrit 33.1 % (37-47); Hemoglobin 10.5 g/dL (12.0-15.0); Lymphocyte # 2.18 X10^3/ul (0.83-4.51); Lymphocyte % 25.1 % (19-41); Mean Corp Hgb Conc 31.7 g/dL (32-36); Mean Corpuscular Hgb 34.7 pg (27.0-32.0); Mean Corpuscular Volume 109.2 fL (81-99); Monocyte# 0.94 X10^3/uL; Monocyte% 10.8 % (0-10); NRBC Flagged by Analyzer 0 % (0-5); Neutrophil # 5.32 X10^3/uL (2.7-7.7); Neutrophil % 61.3 % (47-70); POSITIVE MORPHOLOGY YES; Platelet Count 430 K/mm3 (150-450); RBC Distribution Width CV 16.9 % (11.6-14.6); RBC Distribution Width SD 66.4 fl (35.1-43.9); Red Blood Count 3.03 M/mm3 (4.2-5.4); White Blood Count 8.7 K/mm3 (4.4-11.0)
[2022-06-08 10:34] LABS: Differential Indicated SCAN CRITERIA MET
[2022-06-08 11:00] LABS: Anion Gap 8 (5-15); BUN 20 mg/dL (7-18); BUN/Creat Ratio 30.5 RATIO (10-20); Calcium,Total 9.2 mg/dL (8.5-10.1); Chloride 108 mmol/L (98-107); Creatinine, Serum 0.66 mg/dL (0.55-1.02); EST Glomerular Filtration Rate 94 mL/min (>60); Est Glom Filt Rate - Afr Amer 114 mL/min (>60); Glucose 68 mg/dL (74-106); Potassium 4.6 mmol/L (3.5-5.1); Sodium Level 138 mmol/L (136-145)
[2022-06-08 11:27] LABS: Anisocytosis 2+; Differential Comment SCANNED; Macrocytosis 1+; Microcytosis 1+
== END ==
LOC: OLS.WHLTCC 05:00
PROVIDERS: PCP Nurse Practitioner; Visit Provider Internal Medicine
DX: D64.9 Anemia, unspecified (principal); K12.2 Cellulitis and abscess of mouth; E43 Unspecified severe protein-calorie malnutrition; R62.7 Adult failure to thrive; M62.81 Muscle weakness (generalized); R26.2 Difficulty in walking, not elsewhere classified; R27.8 Other lack of coordination
CPT/HCPCS: 36415; 80048; 85025

== ENCOUNTER → 2022-06-15 | Outpatient (REF) | payer MEDICARE, SELFPAY ==
[2022-06-15 09:26] LABS: Absolute Lymphocyte Count 2.53 X10^3/uL (0.83-4.51); Basophil# 0.06 X10^3/uL; Basophil% 0.7 % (0-1); Eosinophil# 0.12 X10^3/uL; Eosinophils% 1.4 % (0-5); Hematocrit 35.4 % (37-47); Hemoglobin 11.4 g/dL (12.0-15.0); Lymphocyte # 2.53 X10^3/ul (0.83-4.51); Lymphocyte % 29.1 % (19-41); Mean Corp Hgb Conc 32.2 g/dL (32-36); Mean Corpuscular Hgb 35.3 pg (27.0-32.0); Mean Corpuscular Volume 109.6 fL (81-99); Monocyte# 0.93 X10^3/uL; Monocyte% 10.7 % (0-10); NRBC Flagged by Analyzer 0 % (0-5); Neutrophil # 4.99 X10^3/uL (2.7-7.7); Neutrophil % 57.3 % (47-70); POSITIVE MORPHOLOGY YES; Platelet Count 430 K/mm3 (150-450); RBC Distribution Width CV 16.3 % (11.6-14.6); RBC Distribution Width SD 65.4 fl (35.1-43.9); Red Blood Count 3.23 M/mm3 (4.2-5.4); White Blood Count 8.7 K/mm3 (4.4-11.0)
[2022-06-15 09:30] LABS: Differential Indicated SCAN CRITERIA MET
[2022-06-15 09:34] LABS: Anion Gap 7 (5-15); BUN 23 mg/dL (7-18); BUN/Creat Ratio 29.5 RATIO (10-20); Calcium,Total 9.5 mg/dL (8.5-10.1); Chloride 105 mmol/L (98-107); Creatinine, Serum 0.78 mg/dL (0.55-1.02); EST Glomerular Filtration Rate 77 mL/min (>60); Est Glom Filt Rate - Afr Amer 93 mL/min (>60); Glucose 85 mg/dL (74-106); Sodium Level 138 mmol/L (136-145)
[2022-06-15 10:42] LABS: Anisocytosis 1+
== END ==
LOC: OLS.WHLEAS 05:00
PROVIDERS: PCP Nurse Practitioner; Visit Provider Internal Medicine
DX: D64.9 Anemia, unspecified (principal); K12.2 Cellulitis and abscess of mouth; E43 Unspecified severe protein-calorie malnutrition; R62.7 Adult failure to thrive; M62.81 Muscle weakness (generalized); R27.8 Other lack of coordination
CPT/HCPCS: 36415; 80048; 85025

== ENCOUNTER → 2022-06-22 | Outpatient (REF) | payer MEDICARE, SELFPAY ==
[2022-06-22 08:01] LABS: Absolute Lymphocyte Count 2.26 X10^3/uL (0.83-4.51); Absolute Neutrophil Count 4.8 X10^3/uL (2.0-7.7); Basophil# 0.03 X10^3/uL; Basophil% 0.4 % (0-1); Eosinophil# 0.22 X10^3/uL; Eosinophils% 2.7 % (0-5); Hematocrit 34.9 % (37-47); Hemoglobin 11.1 g/dL (12.0-15.0); Lymphocyte # 2.26 X10^3/ul (0.83-4.51); Lymphocyte % 27.7 % (19-41); Mean Corp Hgb Conc 31.8 g/dL (32-36); Mean Corpuscular Volume 110.1 fL (81-99); Mean Platelet Vol. 8.8 fl (6.2-12.0); Monocyte# 0.78 X10^3/uL; Monocyte% 9.6 % (0-10); NRBC Flagged by Analyzer 0 % (0-5); Neutrophil # 4.81 X10^3/uL (2.7-7.7); Platelet Count 394 K/mm3 (150-450); RBC Distribution Width CV 15.9 % (11.6-14.6); RBC Distribution Width SD 64.5 fl (35.1-43.9); Red Blood Count 3.17 M/mm3 (4.2-5.4); White Blood Count 8.2 K/mm3 (4.4-11.0)
[2022-06-22 08:04] LABS: Anion Gap 8 (5-15); BUN 20 mg/dL (7-18); Calcium,Total 9.1 mg/dL (8.5-10.1); Chloride 108 mmol/L (98-107); Creatinine, Serum 0.77 mg/dL (0.55-1.02); EST Glomerular Filtration Rate 78 mL/min (>60); Est Glom Filt Rate - Afr Amer 95 mL/min (>60); Glucose 86 mg/dL (74-106); Potassium 4.2 mmol/L (3.5-5.1); Sodium Level 139 mmol/L (136-145)
== END ==
LOC: OLS.WHLEAS 05:00
PROVIDERS: PCP Nurse Practitioner; Visit Provider Internal Medicine
DX: D64.9 Anemia, unspecified (principal); K12.2 Cellulitis and abscess of mouth; E43 Unspecified severe protein-calorie malnutrition; R62.7 Adult failure to thrive; M62.81 Muscle weakness (generalized); R26.2 Difficulty in walking, not elsewhere classified; R27.8 Other lack of coordination
CPT/HCPCS: 36415; 80048; 85025

== ENCOUNTER → 2022-06-29 | Outpatient (REF) | payer MEDICARE, SELFPAY ==
[2022-06-29 09:03] LABS: Absolute Lymphocyte Count 2.09 X10^3/uL (0.83-4.51); Basophil# 0.04 X10^3/uL; Basophil% 0.5 % (0-1); Eosinophil# 0.25 X10^3/uL; Eosinophils% 2.9 % (0-5); Hematocrit 33.9 % (37-47); Hemoglobin 10.8 g/dL (12.0-15.0); Lymphocyte # 2.09 X10^3/ul (0.83-4.51); Lymphocyte % 24.2 % (19-41); Mean Corp Hgb Conc 31.9 g/dL (32-36); Mean Corpuscular Hgb 35.4 pg (27.0-32.0); Mean Corpuscular Volume 111.1 fL (81-99); Monocyte# 1.17 X10^3/uL; Monocyte% 13.5 % (0-10); NRBC Flagged by Analyzer 0 % (0-5); Neutrophil # 5.01 X10^3/uL (2.7-7.7); Neutrophil % 57.9 % (47-70); Platelet Count 384 K/mm3 (150-450); RBC Distribution Width CV 15.6 % (11.6-14.6); Red Blood Count 3.05 M/mm3 (4.2-5.4); White Blood Count 8.7 K/mm3 (4.4-11.0)
[2022-06-29 09:25] LABS: Anion Gap 7 (5-15); BUN 20 mg/dL (7-18); BUN/Creat Ratio 29.7 RATIO (10-20); Calcium,Total 9.5 mg/dL (8.5-10.1); Chloride 110 mmol/L (98-107); Creatinine, Serum 0.67 mg/dL (0.55-1.02); EST Glomerular Filtration Rate 91 mL/min (>60); Est Glom Filt Rate - Afr Amer 110 mL/min (>60); Glucose 94 mg/dL (74-106); Potassium 3.9 mmol/L (3.5-5.1); Sodium Level 140 mmol/L (136-145)
== END ==
LOC: OLS.WHLEAS 05:00
PROVIDERS: PCP Nurse Practitioner; Visit Provider Internal Medicine
DX: D64.9 Anemia, unspecified (principal); K12.2 Cellulitis and abscess of mouth; E43 Unspecified severe protein-calorie malnutrition; R62.7 Adult failure to thrive; M62.81 Muscle weakness (generalized); R26.2 Difficulty in walking, not elsewhere classified; R27.8 Other lack of coordination
CPT/HCPCS: 36415; 80048; 85025

== ENCOUNTER → 2022-07-06 | Outpatient (REF) | payer MEDICARE, SELFPAY ==
[2022-07-06 07:32] LABS: Absolute Lymphocyte Count 2.13 X10^3/uL (0.83-4.51); Basophil# 0.07 X10^3/uL; Basophil% 0.7 % (0-1); Eosinophil# 0.29 X10^3/uL; Hematocrit 34.4 % (37-47); Lymphocyte # 2.13 X10^3/ul (0.83-4.51); Lymphocyte % 21.9 % (19-41); Mean Corpuscular Hgb 34.6 pg (27.0-32.0); Mean Corpuscular Volume 108.2 fL (81-99); Mean Platelet Vol. 8.8 fl (6.2-12.0); Monocyte# 1.13 X10^3/uL; Monocyte% 11.6 % (0-10); NRBC Flagged by Analyzer 0 % (0-5); Neutrophil # 6.01 X10^3/uL (2.7-7.7); Neutrophil % 61.9 % (47-70); Platelet Count 401 K/mm3 (150-450); RBC Distribution Width CV 14.8 % (11.6-14.6); RBC Distribution Width SD 58.9 fl (35.1-43.9); Red Blood Count 3.18 M/mm3 (4.2-5.4); White Blood Count 9.7 K/mm3 (4.4-11.0)
[2022-07-06 07:58] LABS: Anion Gap 7 (5-15); BUN 20 mg/dL (7-18); BUN/Creat Ratio 25.9 RATIO (10-20); Calcium,Total 9.2 mg/dL (8.5-10.1); Chloride 107 mmol/L (98-107); Creatinine, Serum 0.77 mg/dL (0.55-1.02); EST Glomerular Filtration Rate 78 mL/min (>60); Est Glom Filt Rate - Afr Amer 94 mL/min (>60); Glucose 95 mg/dL (74-106); Potassium 4.4 mmol/L (3.5-5.1); Sodium Level 137 mmol/L (136-145)
== END ==
LOC: OLS.WHLEAS 05:00
PROVIDERS: PCP Nurse Practitioner; Visit Provider Internal Medicine
DX: D64.9 Anemia, unspecified (principal); K12.2 Cellulitis and abscess of mouth; E43 Unspecified severe protein-calorie malnutrition; R62.7 Adult failure to thrive; M62.81 Muscle weakness (generalized); R26.2 Difficulty in walking, not elsewhere classified; R27.8 Other lack of coordination
CPT/HCPCS: 36415; 80048; 85025

== ENCOUNTER → 2022-07-13 | Outpatient (REF) | payer MEDICARE, SELFPAY ==
[2022-07-13 08:20] LABS: Absolute Lymphocyte Count 1.87 X10^3/uL (0.83-4.51); Absolute Neutrophil Count 5.2 X10^3/uL (2.0-7.7); Basophil# 0.05 X10^3/uL; Basophil% 0.6 % (0-1); Eosinophil# 0.39 X10^3/uL; Eosinophils% 4.5 % (0-5); Hematocrit 33.7 % (37-47); Hemoglobin 10.8 g/dL (12.0-15.0); Lymphocyte # 1.87 X10^3/ul (0.83-4.51); Lymphocyte % 21.4 % (19-41); Mean Corpuscular Hgb 34.6 pg (27.0-32.0); Mean Platelet Vol. 8.7 fl (6.2-12.0); Monocyte# 1.14 X10^3/uL; Monocyte% 13.1 % (0-10); NRBC Flagged by Analyzer 0 % (0-5); Neutrophil # 5.23 X10^3/uL (2.7-7.7); Neutrophil % 59.8 % (47-70); Platelet Count 421 K/mm3 (150-450); RBC Distribution Width CV 14.6 % (11.6-14.6); RBC Distribution Width SD 58.3 fl (35.1-43.9); Red Blood Count 3.12 M/mm3 (4.2-5.4); White Blood Count 8.7 K/mm3 (4.4-11.0)
[2022-07-13 08:28] LABS: Anion Gap 8 (5-15); BUN 23 mg/dL (7-18); BUN/Creat Ratio 28.5 RATIO (10-20); Calcium,Total 9.4 mg/dL (8.5-10.1); Chloride 105 mmol/L (98-107); Creatinine, Serum 0.81 mg/dL (0.55-1.02); EST Glomerular Filtration Rate 74 mL/min (>60); Est Glom Filt Rate - Afr Amer 90 mL/min (>60); Glucose 92 mg/dL (74-106); Potassium 3.8 mmol/L (3.5-5.1); Sodium Level 137 mmol/L (136-145)
== END ==
LOC: OLS.WHLEAS 05:00
PROVIDERS: PCP Nurse Practitioner; Visit Provider Internal Medicine
DX: D64.9 Anemia, unspecified (principal); K12.2 Cellulitis and abscess of mouth; E43 Unspecified severe protein-calorie malnutrition; R62.7 Adult failure to thrive; M62.81 Muscle weakness (generalized)
CPT/HCPCS: 36415; 80048; 85025

== ENCOUNTER → 2022-07-20 | Outpatient (REF) | payer MEDICARE, SELFPAY ==
[2022-07-20 07:47] LABS: Anion Gap 5 (5-15); BUN 20 mg/dL (7-18); BUN/Creat Ratio 22.4 RATIO (10-20); Calcium,Total 9.1 mg/dL (8.5-10.1); Chloride 106 mmol/L (98-107); Creatinine, Serum 0.89 mg/dL (0.55-1.02); EST Glomerular Filtration Rate 66 mL/min (>60); Est Glom Filt Rate - Afr Amer 80 mL/min (>60); Glucose 120 mg/dL (74-106); Potassium 3.8 mmol/L (3.5-5.1); Sodium Level 135 mmol/L (136-145)
[2022-07-20 07:50] LABS: Absolute Neutrophil Count 5.6 X10^3/uL (2.0-7.7); Basophil# 0.04 X10^3/uL; Basophil% 0.4 % (0-1); Eosinophil# 0.62 X10^3/uL; Eosinophils% 6.8 % (0-5); Hematocrit 33.4 % (37-47); Hemoglobin 10.6 g/dL (12.0-15.0); Lymphocyte % 15.4 % (19-41); Mean Corp Hgb Conc 31.7 g/dL (32-36); Mean Corpuscular Hgb 34.8 pg (27.0-32.0); Mean Corpuscular Volume 109.5 fL (81-99); Monocyte# 1.35 X10^3/uL; Monocyte% 14.9 % (0-10); NRBC Flagged by Analyzer 0 % (0-5); Neutrophil # 5.55 X10^3/uL (2.7-7.7); Neutrophil % 61.3 % (47-70); Platelet Count 389 K/mm3 (150-450); RBC Distribution Width CV 14.1 % (11.6-14.6); RBC Distribution Width SD 57.3 fl (35.1-43.9); Red Blood Count 3.05 M/mm3 (4.2-5.4); White Blood Count 9.1 K/mm3 (4.4-11.0)
== END ==
LOC: OLS.WHLEAS 05:00
PROVIDERS: PCP Nurse Practitioner; Visit Provider Internal Medicine
DX: D64.9 Anemia, unspecified (principal); K12.2 Cellulitis and abscess of mouth; E43 Unspecified severe protein-calorie malnutrition; R62.7 Adult failure to thrive; M62.81 Muscle weakness (generalized); R26.2 Difficulty in walking, not elsewhere classified; R27.8 Other lack of coordination
CPT/HCPCS: 36415; 80048; 85025

== ENCOUNTER → 2022-07-27 | Outpatient (REF) | payer MEDICARE, SELFPAY ==
[2022-07-27 07:23] LABS: Absolute Lymphocyte Count 1.27 X10^3/uL (0.83-4.51); Absolute Neutrophil Count 6.7 X10^3/uL (2.0-7.7); Anion Gap 5 (5-15); BUN 17 mg/dL (7-18); BUN/Creat Ratio 20.4 RATIO (10-20); Basophil# 0.03 X10^3/uL; Basophil% 0.3 % (0-1); Calcium,Total 9.3 mg/dL (8.5-10.1); Chloride 106 mmol/L (98-107); Creatinine, Serum 0.83 mg/dL (0.55-1.02); EST Glomerular Filtration Rate 71 mL/min (>60); Eosinophil# 0.84 X10^3/uL; Eosinophils% 8.3 % (0-5); Est Glom Filt Rate - Afr Amer 86 mL/min (>60); Glucose 106 mg/dL (74-106); Hematocrit 32.2 % (37-47); Hemoglobin 10.4 g/dL (12.0-15.0); Lymphocyte # 1.27 X10^3/ul (0.83-4.51); Lymphocyte % 12.5 % (19-41); Mean Corp Hgb Conc 32.3 g/dL (32-36); Mean Corpuscular Hgb 34.1 pg (27.0-32.0); Mean Corpuscular Volume 105.6 fL (81-99); Mean Platelet Vol. 8.9 fl (6.2-12.0); Monocyte# 1.23 X10^3/uL; Monocyte% 12.1 % (0-10); NRBC Flagged by Analyzer 0 % (0-5); Neutrophil # 6.67 X10^3/uL (2.7-7.7); Neutrophil % 65.8 % (47-70); Platelet Count 461 K/mm3 (150-450); Potassium 3.8 mmol/L (3.5-5.1); RBC Distribution Width CV 13.3 % (11.6-14.6); RBC Distribution Width SD 51.9 fl (35.1-43.9); Red Blood Count 3.05 M/mm3 (4.2-5.4); Sodium Level 134 mmol/L (136-145); White Blood Count 10.1 K/mm3 (4.4-11.0)
== END ==
LOC: OLS.WHLEAS 05:00
PROVIDERS: PCP Nurse Practitioner; Visit Provider Internal Medicine
DX: D64.9 Anemia, unspecified (principal); K12.2 Cellulitis and abscess of mouth; E43 Unspecified severe protein-calorie malnutrition; R62.7 Adult failure to thrive; M62.81 Muscle weakness (generalized); R26.2 Difficulty in walking, not elsewhere classified
CPT/HCPCS: 36415; 80048; 85025

== ENCOUNTER → 2022-08-03 | Outpatient (REF) | payer MEDICARE, SELFPAY ==
[2022-08-03 07:03] LABS: Absolute Lymphocyte Count 1.85 X10^3/uL (0.83-4.51); Absolute Neutrophil Count 6.3 X10^3/uL (2.0-7.7); Basophil# 0.05 X10^3/uL; Basophil% 0.5 % (0-1); Eosinophils% 7.3 % (0-5); Hemoglobin 9.5 g/dL (12.0-15.0); Lymphocyte # 1.85 X10^3/ul (0.83-4.51); Lymphocyte % 16.8 % (19-41); Mean Corp Hgb Conc 31.7 g/dL (32-36); Mean Corpuscular Hgb 33.6 pg (27.0-32.0); Monocyte# 1.78 X10^3/uL; Monocyte% 16.2 % (0-10); NRBC Flagged by Analyzer 0 % (0-5); Neutrophil # 6.27 X10^3/uL (2.7-7.7); Neutrophil % 56.9 % (47-70); POSITIVE DIFFERENTIAL YES; Platelet Count 523 K/mm3 (150-450); RBC Distribution Width CV 13.4 % (11.6-14.6); Red Blood Count 2.83 M/mm3 (4.2-5.4)
[2022-08-03 07:06] LABS: Differential Indicated SCAN CRITERIA MET
[2022-08-03 07:08] LABS: Anion Gap 3 (5-15); BUN 17 mg/dL (7-18); BUN/Creat Ratio 22.4 RATIO (10-20); Calcium,Total 9.8 mg/dL (8.5-10.1); Chloride 109 mmol/L (98-107); Creatinine, Serum 0.76 mg/dL (0.55-1.02); EST Glomerular Filtration Rate 80 mL/min (>60); Est Glom Filt Rate - Afr Amer 96 mL/min (>60); Glucose 87 mg/dL (74-106); Sodium Level 138 mmol/L (136-145)
[2022-08-03 07:24] LABS: Differential Comment SCANNED; Hypochromasia RARE
== END ==
LOC: OLS.WHLEAS 05:00
PROVIDERS: PCP Nurse Practitioner; Visit Provider Internal Medicine
DX: D64.9 Anemia, unspecified (principal); K12.2 Cellulitis and abscess of mouth; E43 Unspecified severe protein-calorie malnutrition; R62.7 Adult failure to thrive; M62.81 Muscle weakness (generalized); R26.2 Difficulty in walking, not elsewhere classified
CPT/HCPCS: 36415; 80048; 85025

== ENCOUNTER → 2022-08-10 | Outpatient (REF) | payer MEDICARE, MEDICAID, SELFPAY ==
[2022-08-10 06:29] LABS: Absolute Lymphocyte Count 2.32 X10^3/uL (0.83-4.51); Absolute Neutrophil Count 5.5 X10^3/uL (2.0-7.7); Basophil# 0.07 X10^3/uL; Basophil% 0.7 % (0-1); Eosinophil# 0.49 X10^3/uL; Eosinophils% 4.8 % (0-5); Hematocrit 29.8 % (37-47); Hemoglobin 9.5 g/dL (12.0-15.0); Lymphocyte # 2.32 X10^3/ul (0.83-4.51); Lymphocyte % 22.9 % (19-41); Mean Corp Hgb Conc 31.9 g/dL (32-36); Mean Corpuscular Hgb 33.7 pg (27.0-32.0); Mean Corpuscular Volume 105.7 fL (81-99); Mean Platelet Vol. 8.8 fl (6.2-12.0); Monocyte% 14.8 % (0-10); NRBC Flagged by Analyzer 0 % (0-5); Neutrophil # 5.49 X10^3/uL (2.7-7.7); Neutrophil % 54.3 % (47-70); Platelet Count 514 K/mm3 (150-450); RBC Distribution Width CV 13.8 % (11.6-14.6); RBC Distribution Width SD 53.7 fl (35.1-43.9); Red Blood Count 2.82 M/mm3 (4.2-5.4); White Blood Count 10.1 K/mm3 (4.4-11.0)
[2022-08-10 07:22] LABS: Anion Gap 7 (5-15); BUN 22 mg/dL (7-18); BUN/Creat Ratio 25.1 RATIO (10-20); Calcium,Total 9.8 mg/dL (8.5-10.1); Chloride 108 mmol/L (98-107); Creatinine, Serum 0.88 mg/dL (0.55-1.02); EST Glomerular Filtration Rate 67 mL/min (>60); Est Glom Filt Rate - Afr Amer 82 mL/min (>60); Glucose 97 mg/dL (74-106); Sodium Level 140 mmol/L (136-145)
== END ==
LOC: OLS.WHLEAS 05:00
PROVIDERS: PCP Nurse Practitioner; Visit Provider Internal Medicine
DX: D64.9 Anemia, unspecified (principal); K12.2 Cellulitis and abscess of mouth; E43 Unspecified severe protein-calorie malnutrition; R62.7 Adult failure to thrive; M62.81 Muscle weakness (generalized); R26.2 Difficulty in walking, not elsewhere classified; R27.8 Other lack of coordination
CPT/HCPCS: 36415; 80048; 85025

== ENCOUNTER → 2022-08-17 | Outpatient (REF) | payer MEDICARE, MEDICAID, SELFPAY ==
[2022-08-17 10:26] LABS: Anion Gap 4 (5-15); BUN 14 mg/dL (7-18); BUN/Creat Ratio 16.8 RATIO (10-20); Calcium,Total 8.9 mg/dL (8.5-10.1); Chloride 109 mmol/L (98-107); Creatinine, Serum 0.83 mg/dL (0.55-1.02); EST Glomerular Filtration Rate 71 mL/min (>60); Est Glom Filt Rate - Afr Amer 86 mL/min (>60); Glucose 84 mg/dL (74-106); Potassium 3.9 mmol/L (3.5-5.1); Sodium Level 139 mmol/L (136-145)
[2022-08-17 10:32] LABS: Absolute Lymphocyte Count 2.45 X10^3/uL (0.83-4.51); Absolute Neutrophil Count 5.4 X10^3/uL (2.0-7.7); Basophil# 0.09 X10^3/uL; Basophil% 0.9 % (0-1); Eosinophil# 0.48 X10^3/uL; Eosinophils% 4.9 % (0-5); Hematocrit 31.8 % (37-47); Hemoglobin 9.9 g/dL (12.0-15.0); Lymphocyte # 2.45 X10^3/ul (0.83-4.51); Lymphocyte % 24.8 % (19-41); Mean Corp Hgb Conc 31.1 g/dL (32-36); Mean Corpuscular Hgb 33.3 pg (27.0-32.0); Mean Corpuscular Volume 107.1 fL (81-99); Mean Platelet Vol. 8.9 fl (6.2-12.0); Monocyte# 1.36 X10^3/uL; Monocyte% 13.8 % (0-10); NRBC Flagged by Analyzer 0 % (0-5); Neutrophil # 5.41 X10^3/uL (2.7-7.7); Neutrophil % 54.8 % (47-70); Platelet Count 447 K/mm3 (150-450); RBC Distribution Width CV 13.7 % (11.6-14.6); RBC Distribution Width SD 53.9 fl (35.1-43.9); Red Blood Count 2.97 M/mm3 (4.2-5.4); White Blood Count 9.9 K/mm3 (4.4-11.0)
== END ==
LOC: OLS.WHLEAS 06:20
PROVIDERS: PCP Nurse Practitioner; Visit Provider Internal Medicine
DX: D64.9 Anemia, unspecified (principal); K12.2 Cellulitis and abscess of mouth; E43 Unspecified severe protein-calorie malnutrition; R62.7 Adult failure to thrive; M62.81 Muscle weakness (generalized); R26.2 Difficulty in walking, not elsewhere classified
CPT/HCPCS: 36415; 80048; 85025

== ENCOUNTER → 2022-08-22 | Outpatient (REF) | payer MEDICARE, MEDICAID, SELFPAY ==
[2022-08-22 08:41] LABS: AST(SGOT) 20 U/L (15-37); Alanine Aminotransfer ALT/SGPT 15 U/L (13-56); Alkaline Phosphatase 47 U/L (45-117); Bilirubin, Direct < 0.05 mg/dL (0.00-0.30); Cholesterol 153 mg/dL (200); Globulin 4.2 g/dL (2.2-4.2); High Density Lipoprotein 75 mg/dL; Protein, Total 7.2 g/dL (6.4-8.2); Triglycerides 54 mg/dL; Very Low Density Lipoprotein 11 mg/dL (5-40)
== END ==
LOC: OLS.WHLEAS 05:00
PROVIDERS: PCP Nurse Practitioner; Visit Provider Internal Medicine
DX: I25.10 Atherosclerotic heart disease of native coronary artery without angina pectoris (principal); K12.2 Cellulitis and abscess of mouth; E43 Unspecified severe protein-calorie malnutrition; R62.7 Adult failure to thrive; M62.81 Muscle weakness (generalized); R26.2 Difficulty in walking, not elsewhere classified; R27.8 Other lack of coordination; Z79.899 Other long term (current) drug therapy
CPT/HCPCS: 36415; 80061; 80076

== ENCOUNTER → 2022-08-24 | Outpatient (REF) | payer MEDICARE, MEDICAID, SELFPAY ==
[2022-08-24 09:19] LABS: Absolute Lymphocyte Count 2.27 X10^3/uL (0.83-4.51); Absolute Neutrophil Count 5.7 X10^3/uL (2.0-7.7); Basophil# 0.09 X10^3/uL; Eosinophil# 0.33 X10^3/uL; Eosinophils% 3.6 % (0-5); Hemoglobin 11.7 g/dL (12.0-15.0); Lymphocyte # 2.27 X10^3/ul (0.83-4.51); Lymphocyte % 24.6 % (19-41); Mean Corp Hgb Conc 28.5 g/dL (32-36); Mean Corpuscular Hgb 29.5 pg (27.0-32.0); Mean Corpuscular Volume 103.3 fL (81-99); Mean Platelet Vol. 9.3 fl (6.2-12.0); Monocyte# 0.77 X10^3/uL; Monocyte% 8.4 % (0-10); NRBC Flagged by Analyzer 0 % (0-5); Neutrophil # 5.71 X10^3/uL (2.7-7.7); Neutrophil % 61.9 % (47-70); POSITIVE MORPHOLOGY YES; Platelet Count 340 K/mm3 (150-450); RBC Distribution Width CV 18.3 % (11.6-14.6); RBC Distribution Width SD 70.6 fl (35.1-43.9); Red Blood Count 3.97 M/mm3 (4.2-5.4); White Blood Count 9.2 K/mm3 (4.4-11.0)
[2022-08-24 09:36] LABS: Differential Indicated SCAN CRITERIA MET
[2022-08-24 09:41] LABS: Anion Gap 4 (5-15); BUN 16 mg/dL (7-18); BUN/Creat Ratio 19.4 RATIO (10-20); Calcium,Total 8.7 mg/dL (8.5-10.1); Chloride 110 mmol/L (98-107); Creatinine, Serum 0.82 mg/dL (0.55-1.02); EST Glomerular Filtration Rate 72 mL/min (>60); Est Glom Filt Rate - Afr Amer 88 mL/min (>60); Glucose 85 mg/dL (74-106); Potassium 4.2 mmol/L (3.5-5.1); Sodium Level 139 mmol/L (136-145)
[2022-08-24 10:18] LABS: Anisocytosis 2+
== END ==
LOC: OLS.WHLEAS 05:00
PROVIDERS: PCP Nurse Practitioner; Visit Provider Internal Medicine
DX: D64.9 Anemia, unspecified (principal); K12.2 Cellulitis and abscess of mouth; E43 Unspecified severe protein-calorie malnutrition; R62.7 Adult failure to thrive; M62.81 Muscle weakness (generalized); R26.2 Difficulty in walking, not elsewhere classified; R27.8 Other lack of coordination
CPT/HCPCS: 36415; 80048; 85025

== ENCOUNTER → 2022-08-31 | Outpatient (REF) | payer MEDICARE, MEDICAID, SELFPAY ==
[2022-08-31 09:11] LABS: Basophil# 0.05 X10^3/uL; Basophil% 0.6 % (0-1); Eosinophil# 0.34 X10^3/uL; Eosinophils% 3.8 % (0-5); Hemoglobin 9.4 g/dL (12.0-15.0); Lymphocyte % 26.7 % (19-41); Mean Corp Hgb Conc 30.3 g/dL (32-36); Mean Corpuscular Hgb 31.9 pg (27.0-32.0); Mean Corpuscular Volume 105.1 fL (81-99); Mean Platelet Vol. 8.8 fl (6.2-12.0); Monocyte% 12.2 % (0-10); NRBC Flagged by Analyzer 0 % (0-5); Neutrophil # 5.03 X10^3/uL (2.7-7.7); Neutrophil % 55.8 % (47-70); Platelet Count 439 K/mm3 (150-450); RBC Distribution Width CV 13.3 % (11.6-14.6); RBC Distribution Width SD 51.6 fl (35.1-43.9); Red Blood Count 2.95 M/mm3 (4.2-5.4)
[2022-08-31 09:40] LABS: Anion Gap 7 (5-15); BUN 22 mg/dL (7-18); Chloride 109 mmol/L (98-107); EST Glomerular Filtration Rate 58 mL/min (>60); Est Glom Filt Rate - Afr Amer 70 mL/min (>60); Glucose 113 mg/dL (74-106); Potassium 4.2 mmol/L (3.5-5.1); Sodium Level 139 mmol/L (136-145)
== END ==
LOC: OLS.WHLEAS 05:00
PROVIDERS: PCP Nurse Practitioner; Visit Provider Internal Medicine
DX: D64.9 Anemia, unspecified (principal); K12.2 Cellulitis and abscess of mouth; E43 Unspecified severe protein-calorie malnutrition; M62.81 Muscle weakness (generalized)
CPT/HCPCS: 36415; 80048; 85025

== ENCOUNTER → 2022-09-08 | Outpatient (REF) | payer MEDICARE, MEDICAID, SELFPAY ==
[2022-09-08 09:22] LABS: Anion Gap 11 (5-15); BUN 29 mg/dL (7-18); BUN/Creat Ratio 17.9 RATIO (10-20); Calcium,Total 8.7 mg/dL (8.5-10.1); Chloride 109 mmol/L (98-107); Creatinine, Serum 1.62 mg/dL (0.55-1.02); EST Glomerular Filtration Rate 33 mL/min (>60); Est Glom Filt Rate - Afr Amer 40 mL/min (>60); Glucose 77 mg/dL (74-106); Potassium 4.1 mmol/L (3.5-5.1); Sodium Level 140 mmol/L (136-145)
[2022-09-08 09:23] LABS: Absolute Neutrophil Count 18.6 X10^3/uL (2.0-7.7); Basophil# 0.05 X10^3/uL; Basophil% 0.2 % (0-1); Eosinophil# 0.02 X10^3/uL; Eosinophils% 0.1 % (0-5); Hemoglobin 9.8 g/dL (12.0-15.0); Lymphocyte % 3.3 % (19-41); Mean Corp Hgb Conc 31.6 g/dL (32-36); Mean Corpuscular Hgb 32.8 pg (27.0-32.0); Mean Corpuscular Volume 103.7 fL (81-99); Mean Platelet Vol. 9.2 fl (6.2-12.0); Monocyte# 1.22 X10^3/uL; Monocyte% 5.8 % (0-10); NRBC Flagged by Analyzer 0 % (0-5); Neutrophil # 18.57 X10^3/uL (2.7-7.7); Neutrophil % 88.7 % (47-70); POSITIVE MORPHOLOGY YES; Platelet Count 381 K/mm3 (150-450); RBC Distribution Width CV 14.1 % (11.6-14.6); RBC Distribution Width SD 53.6 fl (35.1-43.9); Red Blood Count 2.99 M/mm3 (4.2-5.4)
[2022-09-08 09:24] LABS: Differential Indicated SCAN CRITERIA MET
[2022-09-08 09:31] LABS: Color, Urine Yellow (Yellow); Glucose, Dipstick Normal (Normal); Ketone-Dipstick 5 mg/dl (Negative); Leukocyte Esterase-Dipstick 500 /ul (Negative); Nitrite-Dipstick Negative (Negative); Occult Blood-Urine 50 /ul (Negative); Protein-Dipstick 100 mg/dl (Negative); Specific Gravity, Urine 1.025 (1.002-1.030); Urine Bilirubin Dipstick Negative (Negative); Urine Clarity Sl. Cloudy (Clear); Urine Urobilinogen Normal (Normal)
[2022-09-08 09:53] LABS: Differential Comment SCANNED
== END ==
LOC: OLS.WHLEAS 05:00
PROVIDERS: PCP Nurse Practitioner; Visit Provider Internal Medicine
DX: R30.0 Dysuria (principal); D64.9 Anemia, unspecified
CPT/HCPCS: 36415; 80048; 81002; 85025; 87086; 87088